=== PATIENT | female | born 1985 | race Caucasian/White ===

== ENCOUNTER → 2020-04-03 | Outpatient (CLI) | payer OTHER, SELFPAY ==
--- NOTE | 2020-04-03 09:59 | BI_ITS ---
MAMMOGRAPHY - BILATERAL SCREENING REASON FOR EXAM: Female, 34 years old. Routine annual screening examination. PERTINENT HISTORY: Non-contributory. TECHNIQUE: Digital bilateral breast tyrone (3D mammographic acquisition) in the CC and MLO projections. 2-D mediolateral oblique (MLO) and craniocaudad (CC) views of both breasts were obtained. CAD: Full Field Digital Mammography with Computer Added Detection was performed. COMPARISON: None. Baseline examination. FINDINGS: Breast Composition: The breasts are heterogeneously dense, which may obscure small masses. There are no dominant masses or suspicious calcifications. No other significant abnormalities are identified. BI/SCREEN MAMM (CAD) W/TYRONE BILAT IMPRESSION: Negative screening mammogram. Yearly followup mammogram recommended. (A) ASSESSMENT CATEGORY: BIRADS Category 1: Negative. A letter regarding these results will be sent to the patient by the facility within 30 days. Approximately 10% of breast cancers are not detected by mammography. A normal mammogram should not delay biopsy of a clinically suspicious abnormality. [id number] Electronically Signed: Bill Méndez, at 12:18 EDT , Service support ,
== END | disposition home or self-care (01) ==
LOC: OPBI 09:56
PROVIDERS: PCP Family Medicine; Referring Provider Obstetrics & Gynecology; Visit Provider Obstetrics & Gynecology
DX: Z12.31 Encounter for screening mammogram for malignant neoplasm of breast (principal)
CPT/HCPCS: 77063; 77067

== ENCOUNTER → 2025-02-06 | Outpatient (CLI) | payer BC, SELFPAY | END | disposition home or self-care (01) | LOC: OPBI 12:27 | PROVIDERS: PCP Family Medicine; Visit Provider Nurse Practitioner Family | DX: Z12.4 Encounter for screening for malignant neoplasm of cervix (principal) | CPT/HCPCS: 87624; 88175; G0145 ==

== ENCOUNTER → 2025-03-02 | Outpatient (CLI) | payer BC, SELFPAY ==
--- NOTE | 2025-03-02 14:06 | CT_ITS ---
PROCEDURE: ABDOMEN/PELVIS WITH CONTRAST 03/02/2025 REASON FOR EXAM: PELVIC MASS Right-sided abdominal pain. TECHNIQUE: Abdomen and pelvis CT with intravenous contrast. Coronal and Sagittal reconstruction series were provided. PATIENT PREPARATION: Per protocol ORAL CONTRAST TYPE: Oral contrast was given. CONTRAST: Isovue-300 VOLUME: 100 mL One or more dose reduction techniques were used (e.g., Automated exposure control, adjustment of the mA and/or kV according to patient size, use of iterative reconstruction technique. RADIATION DOSE SUMMARY: CTDlvol: 10 mGy DLP: 545.19 mGycm COMPARISON: None FINDINGS: Lung bases: Unremarkable Liver: Unremarkable Gallbladder: Unremarkable Spleen: Normal size. Pancreas: Normal size without evidence of mass surrounding inflammation or ductal dilation. Adrenals: Unremarkable Kidneys: Normal renal sizes. No hydronephrosis. Bladder: Unremarkable Reproductive Organs: Marked enlargement of the uterus in keeping with the large fibroid uterus. Bowel: Unremarkable Appendix: The appendix is not identified. There is no inflammatory process identified in the right lower quadrant to suggest appendicitis. Lymph nodes: Unremarkable. Vasculature: The abdominal aorta and IVC are normal. Peritoneum / Retroperitoneum: Unremarkable Bones: Limbus vertebrae along the superior anterior endplate of L5 vertebrae. CT/Abdomen/Pelvis WITH Contrast IMPRESSION: Markedly enlarged fibroid uterus. . Reading Location: [id number]
== END | disposition home or self-care (01) ==
LOC: CT 13:49
PROVIDERS: Referring Provider Nurse Practitioner Family; Visit Provider Nurse Practitioner Family
DX: R19.00 Intra-abdominal and pelvic swelling, mass and lump, unspecified site (principal)
CPT/HCPCS: 74177; Q9967; A4216

== ENCOUNTER → 2025-03-09 | Outpatient (CLI) | payer BC, SELFPAY ==
--- NOTE | 2025-03-09 12:56 | US_ITS ---
PROCEDURE: PELVIC W/ TRANSVAGINAL 03/09/2025 REASON FOR EXAM: UTERINE MASS TECHNIQUE: Transabdominal and transvaginal pelvic ultrasound FINDINGS: Transabdominal and transvaginal imaging. Enlarged uterus measures 14.5 x 10.9 x 10.1 cm and contains a heterogeneous mass at the fundal portion measuring 9.2 x 10.2 x 8.5 cm consistent with a large fibroid. The endometrium is not visualized. Cervix appears within limits. The right ovary is not visualized. The left ovary measures 3.5 x 2.2 x 2.4 cm and appears within limits. No evidence of adnexal mass. No free fluid seen. Bladder volume 506 cc. US/Pelvic w/ Transvaginal IMPRESSION: Enlarged uterus measures 14.5 x 10.9 x 10.1 cm and contains a heterogeneous mas s at the fundal portion measuring 9.2 x 10.2 x 8.5 cm consistent with a large fibroid. The endometrium is not visualized. The right ovary is not visualized. No free fluid seen. Reading Location: [id number]
== END | disposition home or self-care (01) ==
LOC: US 12:49
PROVIDERS: Referring Provider Nurse Practitioner Family; Visit Provider Nurse Practitioner Family
DX: R19.00 Intra-abdominal and pelvic swelling, mass and lump, unspecified site (principal)
CPT/HCPCS: 76830; 76856

== ENCOUNTER → 2025-03-20 | Outpatient (CLI) | payer BC, SELFPAY ==
--- NOTE | 2025-03-20 14:20 | EMB_PTH ---
PATIENT: YOKO BARBA LOC: [facility] U#:[id number] AGE/SX: 39/F ROOM: RE03/20/[address]: Dr. Maura Sequeira MD : 1985 BED: DIS: 03/20/2025 SPEC #: [id number] RECD: 03/20/25 15:59 STATUS: DONALD REJulián #: [id number] HUY: 03/20/25 14:[address]: Maura Sequeira DEPT: SURGICAL PATHOLOGY RECD BY: Thierry Joya ENTERED: 03/21/25 10:15 SP TYPE: ENDOM BX/C OTHR DR: NIALL Adame Tissues: A - Endometrium, NOS Procedures: Surgery Specimen Level IV HEADER OPERATION: Endometrial biopsy PRE-OP DIAGNOSIS: Abnormal uterine bleeding TISSUE SUBMITTED: A- Endometrial tissue MICROSCOPIC DIAGNOSIS A. Endometrium, biopsy: * Benign endocervical tissue. * No endometrium seen. MICROSCOPIC DESCRIPTION Slides are reviewed. GROSS DESCRIPTION A. Received in formalin in a container labeled with the patient's name, date of , and with the accompanying paperwork indicating, endometrial tissue are multiple singh fragments of soft tissue admixed with blood and mucus measuring 2.7 x 1.1 x 0.2 cm in aggregate. Submitted in toto in A1. [facility] 03-21-2025 CPT:77112
== END | disposition home or self-care (01) ==
LOC: LABSPEC 16:03
PROVIDERS: Referring Provider Obstetrics & Gynecology; Visit Provider Obstetrics & Gynecology
DX: N93.9 Abnormal uterine and vaginal bleeding, unspecified (principal)
CPT/HCPCS: 88305

== ENCOUNTER → 2025-05-08 | Outpatient (CLI) | payer BC, SELFPAY | END | disposition home or self-care (01) | LOC: BWCLAB 11:44 | PROVIDERS: Referring Provider Obstetrics & Gynecology; Visit Provider Obstetrics & Gynecology | DX: R35.0 Frequency of micturition (principal); R30.0 Dysuria | CPT/HCPCS: 87086; 87088 ==

== ENCOUNTER → 2025-05-11 | Outpatient (CLI) | payer BC, SELFPAY ==
--- NOTE | 2025-05-11 14:22 | US_ITS ---
PROCEDURE: PELVIC W/ TRANSVAGINAL 05/11/2025 REASON FOR EXAM: FIBROIDS PRE-OP TECHNIQUE: PELVIC W/ TRANSVAGINAL COMPARISON: 03/11/2025. FINDINGS: Anteverted uterus measures 16.3 x 12.2 x 11.6 cm. Large fundal fibroid measuring 9.3 x 9.6 x 8.3 cm. The endometrium is obscured. Right ovary measures 3.7 x 2.4 x 2.2 cm with preserved vascular flow. No visualized ovarian mass. Left ovarian 3.6 x 2.0 x 2.1 cm with preserved vascular flow. There is dominant follicle. No mass. No free fluid in the cul-de-sac. US/Pelvic w/ Transvaginal IMPRESSION: Large uterine fundal fibroid. Reading Location: [id number]
== END | disposition home or self-care (01) ==
LOC: US 14:20
PROVIDERS: Referring Provider Obstetrics & Gynecology; Visit Provider Obstetrics & Gynecology
DX: N93.9 Abnormal uterine and vaginal bleeding, unspecified (principal); D21.9 Benign neoplasm of connective and other soft tissue, unspecified
CPT/HCPCS: 76830; 76856

== ENCOUNTER 2025-06-01 08:52 | Outpatient (CLI) | payer BC, SELFPAY ==
[2025-06-01 09:03] VITALS: BP 122/76; PULSE 82; RESP 16; TEMP 36.2; O2SAT 100
[2025-06-01] MEDS: 0.9% NaCl Peripheral Flush Adult IV (09:18)
[2025-06-01] MEDS: 0.9% NaCl IVPB Med Flush (100mL) 15 ML IV (09:18)
[2025-06-01] MEDS: Iron Sucrose Complex 300 MG in 0.9% Normal Saline (250mL Bag) 250 ML 177 MG IV (09:32)
[2025-06-01 11:40] VITALS: BP 112/64; PULSE 85; RESP 14; TEMP 36.7; O2SAT 100
== END 2025-06-01 23:59 | disposition home or self-care (01) ==
LOC: MEDOUTP 08:53
PROVIDERS: Referring Provider Obstetrics & Gynecology; Visit Provider Obstetrics & Gynecology
DX: D64.9 Anemia, unspecified (principal)
CPT/HCPCS: 96365; 96366; J1756; A4216

== ENCOUNTER 2025-06-06 08:52 | Outpatient (CLI) | payer BC, SELFPAY ==
[2025-06-06 08:57] VITALS: BP 133/77; PULSE 74; RESP 16; TEMP 36.1; O2SAT 100
[2025-06-06] MEDS: Iron Sucrose Complex 300 MG in 0.9% Normal Saline (250mL Bag) 250 ML 177 MG IV (09:45)
[2025-06-06] MEDS: 0.9% NaCl Peripheral Flush Adult IV (09:50)
[2025-06-06] MEDS: 0.9% NaCl IVPB Med Flush (100mL) 15 ML IV (09:51)
[2025-06-06 11:39] VITALS: BP 130/71; PULSE 77; RESP 16
== END 2025-06-06 23:59 | disposition home or self-care (01) ==
LOC: MEDOUTP 08:52
PROVIDERS: Referring Provider Obstetrics & Gynecology; Visit Provider Obstetrics & Gynecology
DX: D64.9 Anemia, unspecified (principal)
CPT/HCPCS: 96365; 96366; J1756; A4216

== ENCOUNTER 2025-06-12 08:51 | Outpatient (CLI) | payer BC, SELFPAY ==
[2025-06-12 08:56] VITALS: BP 127/79; PULSE 83; RESP 16; TEMP 35.6; O2SAT 100
[2025-06-12] MEDS: Iron Sucrose Complex 300 MG in 0.9% Normal Saline (250mL Bag) 250 ML 177 MG IV (09:38)
[2025-06-12 11:42] VITALS: BP 121/69; PULSE 81
== END 2025-06-12 23:59 | disposition home or self-care (01) ==
LOC: MEDOUTP 08:52
PROVIDERS: Referring Provider Obstetrics & Gynecology; Visit Provider Obstetrics & Gynecology
DX: D64.9 Anemia, unspecified (principal)
CPT/HCPCS: 96365; 96366; J1756; A4216

== ENCOUNTER 2025-06-13 07:48 | Inpatient (IN) | payer BC, SELFPAY ==
[2025-05-08 12:24] LABS: Hematocrit 23.5 % (37-47); Hemoglobin 6.3 g/dL (12.0-15.0); Mean Corp Hgb Conc 26.8 g/dL (32-36); Mean Corpuscular Volume 66.2 fL (81-99); Mean Platelet Vol. 9.3 fl (6.2-12.0); Platelet Count 589 K/mm3 (150-450); RBC Distribution Width CV 17.1 % (11.6-14.6); RBC Distribution Width SD 40.3 fl (35.1-43.9); Red Blood Count 3.55 M/mm3 (4.2-5.4); White Blood Count 5.7 K/mm3 (4.4-11.0)
[2025-05-08 12:35] LABS: Prothrombin Time (Protime)PT. 13.1 SECONDS (11.7-14.9)
[2025-05-08 12:36] LABS: Partial Thromboplast Time 25.4 Seconds (24.1-36.2)
[2025-05-08 13:43] LABS: AST(SGOT) 20 U/L (<=31); Alanine Aminotransfer ALT/SGPT 20 U/L (<=34); Albumin, Serum 4.7 g/dL (3.5-5.0); Alkaline Phosphatase 68 U/L (35-104); Bilirubin, Direct 0.11 mg/dL (0.00-0.30); Globulin 2.8 g/dL (2.2-4.2); Magnesium 2.1 mg/dL (1.5-2.2)
--- NOTE | 2025-05-09 17:11 | PAT.ANESEVAL ---
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 When Was Last Pacemaker Check QUESTION #4 FULL TEXT: You/Your Family Experience fever (hyperthermia) with Anesthesia Last Oral Intake Last Oral intake: Last Oral Intake NPO since Meds taken in AM with sips of water? Meds patient instructed to take am of surgery PONV PONV - entry level drafter: PONV - entry level drafter Female Yes 05/04/25 12:33 HX of Motion Sickness Yes 05/04/25 12:33 HX of N/V After Surgery No 05/04/25 12:33 Non-Smoker Yes 05/04/25 12:33 Duration of Surgery greater Yes 05/04/25 12:33 than 60 minutes Number of Risk Factors 4 05/04/25 12:33 PONV Score Severe Risk 05/04/25 12:33 Height & Weight Height & Weight: Anesthesia: Height & Weight Height 5 ft 1 in 05/08/25 11:01 Respiratory Assessment Respiratory Assessment - entry level drafter: Respiratory Tract Infection Hx - entry level drafter Hx Respiratory Tract Infection No 05/04/25 12:33 STOP Sleep Apnea STOP Sleep Apnea - entry level drafter: STOP Sleep Apnea - entry level drafter Hx Hypertension No 05/04/25 12:33 Hx Sleep Apnea No 05/04/25 12:33 CPAP BIPAP Do you snore loudly (louder Yes 05/04/25 12:33 than talking or can be heard Do you often feel tired/ Yes 05/04/25 12:33 fatigued/ sleepy during daytime? Has anyone observed you stop No 05/04/25 12:33 breathing during sleep? STOP Results Positive 05/04/25 12:33 QUESTION #5 FULL TEXT : Do you snore loudly (louder than talking or can be heard through closed doors)? 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 Specify any problems Hx of Preganancy in last 3 No 05/04/25 12:33 Months Nurse Filling Out Transfusion DSCHRIBER 05/04/25 12:33 & Questions: Date: 05/04/25 05/04/25 12:33 Time: 12:34 05/04/25 12:33 Patient unable to answer at this time (ie. confused, unrespo /Reproduction History /Reproductive History - entry level drafter: /Reproductive Hx- entry level drafter Hx Now No 05/04/25 12:33 Gestational Age (in weeks): EDC: Hx Hx Para Hx Section SAB No 05/08/25 11:05 PFSH Medical History Wears glasses Wears contact lenses Low iron Easy bruising Restless legs Back pain Syncope Heartburn Non-smoker History of irregular heartbeat Lyme disease Vitamin D deficiency disease Hailey thyroiditis Home Medications ?Medication ?Instructions ?Recorded ?Last Taken ?Type thyroid (pork) 75 mg PO DAILY THYROID 02/06/25 Unknown History womens daily multivitamin 1 cap PO DAILY SUPPLEMENT 02/06/25 Unknown History magnesium 250 mg tablet 250 mg PO DAILY SUPPLEMENT 05/04/25 Unknown History megestrol 20 mg tablet 20 mg PO BID #45 tabs 05/08/25 Unknown Rx ferrous sulfate 325 mg (65 mg 325 mg PO BID #60 tabs 05/09/25 Unknown Rx iron) tablet (Feosol) sulfamethoxazole 800 1 tab PO BID 3 days #6 tabs 05/09/25 Unknown Rx mg-trimethoprim 160 mg tablet (Bactrim DS) Allergy/AdvReac Type Severity Reaction Status Date / Time acetaminophen (From Vicodin) AdvReac Intermediate Vomiting Verified 05/04/25 12:30 hydrocodone (From Vicodin) AdvReac Intermediate Vomiting Verified 05/04/25 12:30 Family History Other Hypertension Thyroid disorder Surgical History Hx of wisdom tooth extraction History of tonsillectomy and adenoidectomy S/P Social History adopted: No household members: family housing: house number of children: 2 current occupational status: employed 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 current occupational exposures/hazards: No pets and animals: Yes pets and animals: dog(s) history of recent travel: No sexually active: Yes Smoking Status: Never smoker second hand exposure: No alcohol intake: never substance use type: does not use well-balanced diet: about half the time caffeine: No eating out: 1-3 times/week during the past year weight has: decreased > 10 lbs what type of physical activity do you participate in: walking frequency: 5-6 times per week duration: 15-30 minutes/day brant/mandaen: Hoahaoism seatbelt use: always do you feel safe at home: Yes additional social history: - Azam Audit: Pertinent Findings Pertinent Findings Additional pertinent findings: 05/08/2025 CBC abnormal results: Hgb 6.3g/dl, Hct 23.5% YOKO BARBA is a 39 year old who presents for preop visit. She is a follow up from being diagnosed of an enlarged uterus and fibroid. she has a history of heavy menses lasting 2 week and heavy for years. she has a history of lyme disease. she struggles with this and has relapses with joint pain. she has a 16 weeks size uterus with a 10 cm fibroid, and has a history of severe scar tissue from her last cesaren section. she had a cbc and thyroid labs within the last few months [facility] that was normal. EMB done and minimal tissue obtained. Current Recommendation Anesthesia Recommendation Anesthesia recommendation: F/U recommended Follow up Details CBC Recommendation: Yes CBC Rec Details: repeat CBC prior to scheduled surgery and consider pre-op PRBC transfusion with additional preparation for intra-operative transfusion of PRBC based on clinical picture and surgical bleeding.
--- NOTE | 2025-06-12 15:42 | HP.PCM_ITS ---
History and Physical Date of Admission: 06/12/25 Vital Signs 03/20/2513:36 05/08/2511:01 Height 5 ft 1 in 5 ft 1 in Weight: 154 lb 8 oz BMI 29.2 BP 131/80 H Intake Visit Reasons: [facility] Cage Operator Required: No Is patient in pain?: Yes (pelvic pain and pressure) Allergies acetaminophen (From Vicodin) Adverse Reaction (Intermediate, Verified 05/04/25 12:30) Vomitinghydrocodone (From Vicodin) Adverse Reaction (Intermediate, Verified 05/04/25 12:30) Vomiting Medications ?Medication ?Instructions ?Recorded ?Confirmed ?Type thyroid (pork) 75 mg PO DAILY THYROID 02/06/25 05/08/25 History womens daily multivitamin 1 cap PO DAILY SUPPLEMENT 02/06/2505/08 History magnesium 250 mg tablet 250 mg PO DAILY SUPPLEMENT 05/04/2504/19 History Is last menstrual period known: Yes Last Menstrual Period: 04/29/25 Post menopausal: No Patient : No : No [facility] Medical History Wears glasses Wears contact lenses Low iron Easy bruising Restless legs Back pain Syncope Heartburn Non-smoker History of irregular heartbeat Lyme disease Vitamin D deficiency disease Hailey thyroiditis Surgical History Hx of wisdom tooth extraction History of tonsillectomy and adenoidectomy S/P Family History Other Hypertension Thyroid disorder Social History adopted: No household members: family housing: house number of children: 2 current occupational status: employed 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 current occupational exposures/hazards: No pets and animals: Yes pets and animals: dog(s) history of recent travel: No sexually active: Yes Smoking Status: Never smoker second hand exposure: No alcohol intake: never substance use type: does not use well-balanced diet: about half the time caffeine: No eating out: 1-3 times/week during the past year weight has: decreased > 10 lbs what type of physical activity do you participate in: walking frequency: 5-6 times per week duration: 15-30 minutes/day brant/mu-ism: Caodaism seatbelt use: always do you feel safe at home: Yes additional social history: - Azam [facility] Details: YOKO BARBA is a 39 year old who presents for preop visit. She is a follow up from being diagnosed of an enlarged uterus and fibroid. she has a history of heavy menses lasting 2 week and heavy for years. she has a history of lyme disease. she struggles with this and has relapses with joint pain. she has a 16 weeks size uterus with a 10 cm fibroid, and has a history of severe scar tissue from her last cesaren section. she had a cbc and thyroid labs within the last few months at [facility] that was normal. EMB done and minimal tissue obtained Female Reproductive History Last Menstrual Period: 04/29/25 Questions: metorrhagia: No, sexually active: Yes, dyspareunia: No and PCB: No Menopausal Symptoms: No hot flashes, No night sweats, No weight change, No mood changes, No difficulty concentrating, No sleep problems and No change in libido History 3 Elective abortions Hx Para 2 Spontaneous abortions Hx # Term Pregnancies Ectopic pregnancies Hx # Pregnancies Multiple births # of living children 2 Past Pregnancies Del. Date Name GA/Weeks Outcome Route Bth Weight Gen Labor Lgth Anesthesia Del Locat Provider FOB Unknown 2007 [place] Male Unknown 2008 Britta Female ROS Const Constitutional: Denies fatigue, night sweats, weight gain or weight loss ENT ENT: Reports system reviewed and no additional complaints, except as documented Cardio Card: Denies chest pain Resp Resp: Denies cough or dyspnea GI GI: Reports as per HPI; Denies constipation, nausea or vomiting : Reports as per HPI; Denies hot flashes, nipple discharge, vaginal discharge, vaginal dryness, vaginal odor or vaginal pruritus Musc Musc: Denies arthralgias, back pain or muscle weakness Skin Skin/Breast: Denies alopecia, change in hair, dry skin, breast mass, breast pain, breast skin changes or nipple discharge Neuro Neuro: Reports system reviewed and no additional complaints, except as documented Psych Psych: Reports system reviewed and no additional complaints, except as documented; Denies change in libido or difficulty concentrating Endo Endo: Denies cold intolerance, excessive sweating, heat intolerance or polydipsia Werner/Lymph Hematologic/Lymphatic: Denies easy bleeding, Denies easy bruising and Denies lymphadenopathy Exam Const General: cooperative, healthy appearing, comfortable, no acute distress and well developed Orientation: alert [facility] Head: normal to inspection and normocephalic Ears: hearing grossly normal bilaterally and external ears normal Nose: external nose normal and nares normal Face and sinus: normal facial exam Neck Neck: normal visual inspection and no lymphadenopathy Thyroid: thyroid normal Chest Chest palpation & inspection: normal inspection of the chest Resp Effort & Inspection: normal respiratory effort GI Inspection: normal to inspection and non-distended Palpation: soft, no hepatosplenomegaly and mass (16-18 week size fixed suprabpubic and 10 cm wide) General: bladder normal to palpation External Female Exam: normal external appearance and normal appearance of the urethra Urethra: normal appearance of the urethra, normal palpation and no discharge Speculum Exam - Vagina: normal appearance of the vagina and normal vaginal discharge Speculum Exam - Cervix: normal appearance of the cervix Bimanual Exam- Vagina & Uterus: bladder normal to palpation, displaced (anteriorly severely, wide particularly cervically), enlarged (16-18 week size), fixed (minimal movement, anteriorly displaced) and nodular Bimanual Exam- Adnexa, other: normal adnexae, adnexae mobile, no masses and normal Pelvic Support: normal Musc Other: gross motor intact no deficits, full bilateral strength Skin General: no rashes or lesions noted Neuro General: patient alert, patient awake, moves all extremities and no focal motor deficits Motor: muscle tone normal throughout Extrem General: normal to inspection and no pedal edema Psych Appearance: grossly normal Mental Status: mental status grossly normal Affect: normal affect Speech and Movement: speech and movement normal Coding Level of Care Code No Charge Diagnoses Abnormal uterine bleeding N93.9 Fibroid D21.9 Pelvic mass R19.00 Frequency of urination R35.0 Assessment and Plan Assessment and Plan (1) Abnormal uterine bleeding: Status: Acute Comment: secondary to fibroid. nl cbc tsh EMB attempted (2) Fibroid: Status: Acute Comment: will discuss with J[facility]- TRH vs RAMÓN, extensive history of scar tissue (3) Pelvic mass: Status: Acute Comment: greater than 6 months (4) Frequency of urination: Status: Acute Plan After discussing the patient's diagnosis and treatment plan options, patient wishes to proceed with surgical management. I have discussed with the patient the risks, benefits, and alternatives of the procedure which include but are not limited to risks of anesthesia, bleeding, infection, possible damage to bowel, bladder, or surrounding vasculature which could lead to additional surgery to evaluate any complications. Patient agrees to procedure and wishes to proceed. ACOG/uptodate references given for additional information regarding procedure.
[2025-06-13] VITALS (19 sets, daily range): BP systolic 102–134; BP diastolic 58–91; PULSE 67–87; RESP 16–18; TEMP 36.5–37.1; O2SAT 97–100; BMI 28.7
--- OUTSIDE RECORDS SUMMARY | 2025-06-13 05:30 | XMS RPT_ITS | CCD ---
Author Organization [employer] [facility] Care Team Providers Care Flag Signalman Name Role Phone Jair Soto PA-C Unavailable Jair Soto PA-C Unavailable Joshua MARIN, Dr. Walls Unavailable [phone] Endocrinology Provider Unavailable Unavailab robert Flood LPN, Nicolasa Unavailable Unavailcatalina Perez MD, Jessica Mayer Unavailable Lashaun BUENROSTRON, Greer Unavailable Milton BUENROSTRON, Madisyn Mayer Unavailable Unavailable Lauren WRAY, Elsa Perez Unavailable Jose GUILLORY, Quynh Ppo Unavailable Unavail able King DUONG-C, Wilfrido Cain Unavailable Clayton GUILLORY, Elsa Salazar Unavailable Unavaila coleen Duran LPN, Bryanna Unavailable Unavailable Varun GUILLORY, Pia Alexander Unavailable Unavailable Laron BUENROSTRON, Mckenna Unavailable Unavailable Poncho WRAY, Gabi Huston Unavailable Elisha La Unavailable Viv BUENROSTRON, Jessica Dallas Unavailable Unavailab robert Booth LPN, Ying Unavailable Unavailcatalina Cortez LPN, Siomara Jones Unavailable Unavaila ble Unavailable Unavailable 911 Emergency Dispatcher/Gynecology Prov. Unavailable Un available Infectious Disease Provider Unavailable Unav sania Perez MD, Dr. Lopez Primary Care Provider Dr. Jessica Perez MD Referring Provider [phone] [facility] Attending Provider [facility] Referring Provider Jair Díaz Primary Care Provider Soto PA, Jair Referring Provider Hua MARIN, Dr. Lorenzo Attending Provider [phone] Dr. Maura Vargas MD Referring Provider [phone] ISAAC, GABI J Attending Unavailable ISAAC, GABI J Primary Care Unavailable ISAAC, GABI J Admitting Unavailable SOTO, JAIR PAC Consulting Unavailable PROVIDER, UNKNOWN Consulting Unavailable PAUL MEEKS MD Referring Unavaila ble ISAAC, GABI J Attending Unavailable ISAAC, GABI J Primary Care Unavailable ISAAC, GABI J Admitting Unavailable SOTO, JAIR PAC Consulting Unavailable PROVIDER, UNKNOWN Consulting Unavailable ISAAC, GABI J Admitting Unavailable ISAAC, GABI J Attending Unavailable ISAAC, GABI J Primary Care Unavailable SOTO, JAIR PAC Consulting Unavailable PROVIDER, UNKNOWN Consulting Unavailable MAURA VARGAS MD Attending Unavailab le MAURA VARGAS MD Primary Care Unavailab le SOTO, JAIR PAC Consulting Unavailable MAURA VARGAS MD Admitting Unavailab le PROVIDER, UNKNOWN Consulting Unavailable SOTO, JAIR PAC Consulting Unavailable PAUL MEEKS MD Admitting Unavaila ble RAGHUNATHAN, PAUL MARIN Attending Unavaila ble RAGHUNATAMELIA, PAUL MARIN Primary Care Unavaila ble PROVIDER, UNKNOWN Consulting Unavailable MAURA VARGAS MD Primary Care Unavailab le MAURA VARGAS MD Admitting Unavailab le RAGHURICHIE, PAUL MARIN Referring Unavaila ble SOTO, JAIR PAC Consulting Unavailable MAURA VARGAS MD Attending Unavailab le PROVIDER, UNKNOWN Consulting Unavailable ISAAC, GABI J Attending Unavailable ISAAC, GABI J Primary Care Unavailable ISAAC, GABI J Admitting Unavailable SOTO, JAIR PAC Consulting Unavailable PROVIDER, UNKNOWN Consulting Unavailable Austen WATTERS-C, Joyce Attending Provider Dr. Maura Vargas MD Admit Provider [phone] Dr. Maura Vargas MD Other Provider [phone] Joyce Boyce Referring Unavailable Joyce Boyce Attending Unavailable Soto, Jair Primary Care Unavailable Joyce Boyce Referring Unavailable Joyce Boyce Attending Unavailable Soto, Jair Primary Care Unavailable Maura Vargas Referring Unavailable Soto, Jair Primary Care Unavailable Marcanthony, Maura Attending Unavailable Marcanthony, Maura Referring Unavailable Marcanthony, Maura Attending Unavailable Soto, Jair Primary Care Unavailable Marcanthony, Maura Attending Unavailable Soto, Jair Referring Unavailable Soto, Jair Primary Care Unavailable Soto, Jair Referring Unavailable Marcanthony, Maura Attending Unavailable Soto, Jair Primary Care Unavailable Marcanthony, Maura Attending Unavailable Marcanthony, Maura Consulting Unavailable Marcanthony, Maura Admitting Unavailable Soto, Jair Primary Care Unavailable Perez, Jessica Referring Unavailable Perez, Jessica Primary Care Unavailable Barkdoreen, Joyce Attending Unavailable Marcanthony, Maura Referring Unavailable Soto, Jair Primary Care Unavailable Marcanthony, Maura Attending Unavailable Marcanthony, Maura Referring Unavailable Soto, Jair Primary Care Unavailable Marcanthony, Maura Attending Unavailable Marcanthony, Maura Referring Unavailable Soto, Jair Primary Care Unavailable Marcanthony, Maura Attending Unavailable Marcanthony, Maura Referring Unavailable Soto, Jair Primary Care Unavailable Marcanthony, Maura Attending Unavailable Perez, Jessica Primary Care Unavailable Barkman, Joyce Attending Unavailable Marcanthony, Maura Admitting Unavailable Soto, Jair Primary Care Unavailable Marcanthony, Maura Attending Unavailable Allergies Allergy Classification Reported Allergen(s) Allergy Type Date of Onset Reaction(s) Facility (11 sources) Codeine Drug Allergy Nausea [facility], [facility] (7 sources) Acetaminophen Drug Allergy 02-06-2025 [facility] (10 sources) HYDROcodone Drug Allergy 02-06-2025 [facility]om[facility] (1 source) Acetaminophen Drug Allergy 05-04-2025 [facility] (1 source) HYDROcodone Drug Allergy 06-12-2025 [facility] Medications Current Medications Medication Drug Class(es) Dates Sig (Normalized) Sig (Original) Magnesium (6 sources) Start: 05-04-2025 take 1 tablet by mouth once daily Magnesium 250 mg tablet Active 250 mg PO DAILY May 04, 2025 12:00am SUPPLEMENT megestrol acetate 20 mg oral tablet (5 sources) Progestin Start: 05-08-2025 take 1 tablet by mouth once daily Megestrol 20 mg tablet Active 20 mg PO TWICE A DAY 45 2 May 08, 2025 12:00am one po BID x until bleeding stops for at least 2-3 days then once daily for remainder of the pills. thyroid (pork) ([place] Thyroid) (9 sources) Start: 05-11-2025 take 90 mg by mouth once daily thyroid (pork) ([place] Thyroid) Active 90 mg PO DAILY May 11, 2025 4:28pm THYROID Start: 02-06-2025 thyroid (pork) ([place] Thyroid) Active PO February 06, 2025 12:00am thyroid (long-term) 15 mg oral tablet (20 sources) take 1 tablet by jeremy th once daily [place] Thyroid 60 MG Oral Tablet ; 1 daily (60 MG) take 1 tablet by mouth once truman y [place] Thyroid 15 MG Oral Tablet ; 1 daily (15 MG) womens daily multivitamin (10 sources) Start: 02-06-2025 womens daily m ultivitamin Active 1 NMA PO DAILY February 06, 2025 12:00am SUPPLEMENT Start: 02-06-2025 womens daily m ultivitamin Active PO February 06, 2025 12:00am Completed/Discontinued Medications Medication Drug Class(es) Dates Sig (Normalized) Sig (Original) [id number] 200 actuat albuterol 0.09 mg/actuat metered dose inhaler (11 sources) beta2-Adrenergic Agonist Start: 07-06-2013 End: 06-25-2016 take 2 puff(s) by inhalation every four to six hours as needed Ventolin HFA 108 (90 Base) MCG/ACT Inhalation Aerosol Solution ; 2 (two) puff(s) puff(s) every 4-6hrs prn for 0 days Quantity: 1 {Inhaler(s)} Refills: 0 Ordered: 25-Jun-2016 PASTORA Bond Start: 06-Jul-2013 End: 25-Jun-2016 Status: Inactive amoxicillin 500 mg oral tablet (11 sources) Penicillin-class Antibacterial Start: 06-25-2016 End: 07-05-2016 take 1 tablet by mouth three times daily Amoxicillin 500 MG Oral Tablet ; 1 (one) Tablet three times daily for 10 days Quantity: 20 {Tablet} Refills: 0 Ordered: 25-Jun-2016 KAMALA Aguilar Start: 25-Jun-2016 End: 05-Jul-2016 Status: Inactive amoxicillin 875 mg / clavulanate 125 mg oral tablet (20 sources) Penicillin-class Antibacterial Start: 10-17-2021 End: 10-27-2021 take 1 tablet by mouth twice daily Amoxicillin-Pot Clavulanate 875-125 MG Oral Tablet ; 1 (one) Tablet two times daily for 10 days Quantity: 20 {Tablet} Refills: 0 Ordered: 17-Oct-2021 KAMALA Soto Start: 17-Oct-2021 End: 27-Oct-2021 Status: Inactive Start: 08-13-2021 End: 08-23-2021 take 1 tablet by mouth twice daily Amoxicillin-Pot Clavulanate 875-125 MG Oral Tablet ; 1 (one) Tablet two times daily for 10 days Quantity: 20 {Tablet} Refills: 0 Ordered: 13-Aug-2021 KAMALA Soto Start: 13-Aug-2021 End: 23-Aug-2021 Status: Inactive Start: 09-26-2016 End: 10-06-2016 take 1 tablet by mouth twice daily at mealtime Augmentin 875-125 MG Oral Tablet ; 1 Tab two times daily for 10 days Quantity: 20 {Tablet} Refills: 0 Ordered: 26-Sep-2016 VIPUL Santana Start: 26-Sep-2016 End: 06-Oct-2016 Status: Inactive Comments: Take with food Comment on above: Take with food azithromycin 250 mg oral tablet (11 sources) Macrolide Antimicrobial Start: 07-06-20 13 End: 12-07-19 14 ZITHROMAX Z-ROBERT, 250MG (Oral Tablet) ; 2 (two) Tabs day one, then one daily for 4 days for 0 days Quantity: 1 {Z-pack} Refills: 0 Ordered: 07-Dec-2013 PASTORA Bond Start: 06-Jul-2013 End: 07-Dec-2013 Status: Inactive benzoyl peroxide 0.05 mg/mg / clindamycin 0.01 mg/mg topical gel (11 sources) Lincosamide Antibacterial BENZACLIN, 1-5% (External Gel) ; AA two times daily (1-5 %) Status: Inactive ciprofloxacin 250 mg oral tablet (11 sources) Quinolone Antimicrobial Start: 06-07-20 18 End: 06-14-20 18 take 1 tablet by mouth twice daily Cipro 250 MG Oral Tablet ; 1 Tablet two times daily for 7 days Quantity: 14 {Tablet} Refills: 0 Ordered: 07-Jun-2018 PASTORA Arnold Start: 07-Jun-2018 End: 14-Jun-2018 Status: Inactive doxycycline monohydrate 100 mg oral tablet (11 sources) Tetracycline-class Drug Start: 06-22-20 End: 07-10-20 doxycycline monohydrate 100 mg tablet ; 1 (one) tablet BID for 18 days Quantity: 36 {Tablet} Refills: 0 Ordered: 22-Jun-2024 KAMALA Isaac Start: 22-Jun-2024 End: 10-Jul-2024 Status: Inactive Start: 06-17-2024 doxycycline mo nohydrate 100 mg tablet ; 1 (one) tablet BID for 10 days Quantity: 20 {Tablet} Refills: 0 Ordered: 17-Jun-2024 KAMALA Isaac Start: 17-Jun-2024 ferrous sulfate 325 mg oral tablet (10 sources) Start: 05-08-2025 End: 06-01-2025 take 1 tablet by mouth twice daily Ferrous Sulfate (Feosol) 325 mg (65 mg iron) tablet Discontinued 325 mg PO TWICE A DAY 60 May 09, 2025 9:16am June 01, 2025 9:03am fluticasone propionate 0.05 mg/actuat metered dose nasal spray (11 sources) Corticosteroid FLONASE, 50MCG/A CT (Nasal Suspension) ; 2 sprays daily (50 MCG/ACT) Status: Inactive herbal tic immune support (10 sources) Start: 02-06-2025 End: 05-04-2025 herbal tic immune support Discontinued PO February 06, 2025 12:00am May 04, 2025 12:31pm Start: 02-06-2025 herbal tic imm une support Active PO February 06, 2025 12:00am iron-Vit O-Scajdpshc-yibln pepper (8 sources) Start: 03-20-2025 End: 05-04-2025 iron-Vit Y-Nspbwvazx-vkayn pepper Discontinued PO March 20, 2025 12:00am May 04, 2025 12:31pm Start: 03-20-2025 iron-Vit C-Pro biotic-black pepper Active PO March 20, 2025 12:00am levoFLOXacin 500 mg oral tablet (11 sources) Quinolone Antimicrobial Start: 07-05-2014 End: 07-15-2014 take 1 tablet by mouth once daily LEVAQUIN, 500MG (Oral Tablet) ; 1 Tab daily for 10 days Quantity: 10 {Tablet} Refills: 0 Ordered: 05-Jul-2014 KAMALA Aguilar Start: 05-Jul-2014 End: 15-Jul-2014 Status: Inactive levothyroxine sodium 0.075 mg oral tablet (20 sources) l-Thyroxine Start: 02-23-2017 End: 08-13-2021 take 1 tablet by mouth once daily Levothyroxine Sodium 75 MCG Oral Tablet ; 1 (one) Tablet Tablet daily for 0 days Quantity: 30 {Tablet} Refills: 11 Ordered: 13-Aug-2021 CLARE Larry Start: 23-Feb-2017 End: 13-Aug-2021 Status: Inactive Start: 02-26-2016 End: 06-26-2016 take 1 tablet by mouth once daily Levothyroxine Sodium 50 MCG Oral Tablet ; 1 (one) Tablet daily for 0 days Quantity: 90 {Tablet} Refills: 3 Ordered: 26-Jun-2016 KAMALA Aguilar Start: 26-Feb-2016 End: 26-Jun-2016 Status: Inactive Magnesium Chloride (10 sources) Start: 02-06-2025 End: 05-04-2025 magnesium chloride Discontin ued PO February 06, 2025 12:00am May 04, 2025 12:31pm Start: 02-06-2025 magnesium chlo ride Active PO February 06, 2025 12:00am omeprazole 40 mg delayed release oral capsule (11 sources) Proton Pump Inhibitor Start: 01-01-2015 End: 09-26-2016 Omeprazole 40 MG Oral Capsule Delayed Release ; 1 (one) Capsule DR 30 minutes before 1st meal of the day for 0 days Quantity: 30 {Capsule} Refills: 11 Ordered: 26-Sep-2016 PASTORA Arnold Start: 01-Jan-2015 End: 26-Sep-2016 Status: Inactive predniSONE 20 mg oral tablet (11 sources) Start: 06-17-2024 End: 07-08-2024 predniSONE 20 mg tablet ; 1 (one) Tablet as directed for 0 days Quantity: 20 {Tablet} Refills: 0 Ordered: 08-Jul-2024 KAMALA Isaac Start: 17-Jun-2024 End: 08-Jul-2024 Status: Inactive Comments: Take 3tabs qd for 3 days thenTake 2tabs qd for 3 days thenTake 1tab qd for 3 days thenTake 1/2tab qd for 4 days. Comment on above: Take 3tabs qd for 3 days thenTake 2tabs qd for 3 days thenTake 1tab qd for 3 days thenTake 1/2tab qd for 4 days. sulfamethoxazole 800 mg / trimethoprim 160 mg oral tablet (16 sources) Dihydrofolate Reductase Inhibitor Antibacterial, Sulfonamide Antimicrobial Start: 05-09-2025 End: 05-12-2025 Sulfamethoxazole-Tri methoprim (Bactrim Ds) 800-160 mg tablet Discontinued 1 {tbl} PO TWICE A DAY 6 3 0 May 09, 2025 12:00am May 11, 2025 12:00am May 12, 2025 12:08am Start: 05-31-2018 End: 06-07-2018 take 1 tablet by mouth twice daily Bactrim DS 800-160 MG Oral Tablet ; 1 (one) Tablet BID for 0 days Quantity: 6 {Tablet} Refills: 0 Ordered: 07-Jun-2018 CLARE Wilks Start: 31-May-2018 End: 07-Jun-2018 Status: Inactive thyroid (pork) (6 sources) Start: 02-06-2025 End: 05-11-2025 take 75 mg by mouth once daily thyroid (pork) Discontinued 75 mg PO DAILY February 06, 2025 12:00am May 11, 2025 4:29pm THYROID Start: 02-06-2025 take 75 mg by mouth once daily thyroid (pork) Active 75 mg PO DAILY February 06, 2025 12:00am THYROID Problems Active Problems Problem Classification Problem Date Documented Da te Episodic/Chronic Abdominal pain (20 sources) Abdominal pain, right upper quadrant 10-17-2010 Episodic Acute bronchitis (20 sources) Acute bronchitis 07-05-2014 Episodic Cardiac dysrhythmias (20 sources) Palpitations; Translations: [Palpitations] 06-17-2024 Episodic Deficiency and other anemia (5 sources) Anemia; Translations: [Anemia, unspecified] 05-09-2025 Episodic Deficiency and other anemia (1 source) Anemia, unspecified; Translations: [Anemia, unspecified] Onset: 06-12-2025 Episodic Esophageal disorders (20 sources) Esophageal reflux 05-26-2014 Chronic Genitourinary symptoms and ill-defined conditions (20 sources) Urinary frequency; Translations: [Increased frequency of urination] Onset: 05-08-2025 04-28-2013 Episodic Menstrual disorders (15 sources) Disorder of menstruation; Translations: [Irregular menstruation, unspecified] Onset: 03-20-2025 07-13-2024 Chronic Nonspecific chest pain (20 sources) Chest pain; Translations: [Chest pain, unspecified] 06-17-2024 Episodic Other and unspecified benign neoplasm (20 sources) Leiomyoma; Translations: [Benign neoplasm of connective and other soft tissue, unspecified] 03-20-2025 Episodic Comment on above: will discuss with IVETH PEREA vs RAMÓN, extensive history of scar tissue Other and unspecified benign neoplasm (1 source) Benign neoplasm of connective and other soft tissue, unspecified; Translations: [Benign neoplasm of connective and other soft tissue, unspecified] Onset: 05-08-2025 Episodic Other female genital disorders (20 sources) Abnormal uterine bleeding; Translations: [Abnormal uterine and vaginal bleeding, unspecified] 03-20-2025 Chronic Comment on above: secondary to fibroid . nl cbc tsh EMB attempted Other female genital disorders (1 source) Abnormal uterine and vaginal bleeding, unspecified; Translations: [Abnormal uterine and vaginal bleeding, unspecified] Onset: 05-16-2025 Chronic Other female genital disorders (18 sources) Vaginal dryness; Translations: [Other specified noninflammatory disorders of vagina] 02-06-2025 Episodic Other gastrointestinal disorders (20 sources) Pelvic mass; Translations: [Intra-abdominal and pelvic swelling, mass and lump, unspecified site] 02-06-2025 Episodic Comment on above: greater than 6 month s Other gastrointestinal disorders (1 source) Intra-abdominal and pelvic swelling, mass and lump, unspecified site; Translations: [Intra-abdominal and pelvic swelling, mass and lump, unspecified site] Onset: 05-08-2025 Episodic Other infections; including parasitic (12 sources) Lyme disease; Translations: [Lyme disease, unspecified] 07-15-2024 Episodic Other nervous system disorders (12 sources) Numbness and tingling sensation of skin; Translations: [Anesthesia of skin] 07-15-2024 Episodic Other non-traumatic joint disorders (20 sources) Multiple joint pain; Translations: [Pain in unspecified joint] 06-17-2024 Episodic Other upper respiratory infections (11 sources) Sinusitis; Translations: [Chronic sinusitis, unspecified] 09-26-2016 Chronic Other upper respiratory infections (20 sources) Acute pharyngitis; Translations: [Acute pharyngitis, unspecified] 01-17-2014 Episodic Otitis media and related conditions (11 sources) Acute suppurative otitis media; Translations: [Acute suppurative otitis media without spontaneous rupture of ear drum, unspecified ear] 12-13-2014 Episodic Thyroid disorders (20 sources) Hypothyroidism; Translations: [Hypothyroidism, unspecified] 06-17-2024 Chronic Comment on above: ON MED Thyroid disorders (20 sources) Disorder of thyroid gland; Translations: [Disorder of thyroid, unspecified] 06-17-2024 Episodic Urinary tract infections (20 sources) Urinary tract infectious disease; Translations: [Urinary tract infection, site not specified] 06-07-2018 Episodic Past or Other Problems Problem Classification Problem Date Documented Date Episodic/Chronic Other screening for suspected conditions (not mental disorders or infectious disease) (20 sources) Full blood count abnormal; Translations: [Other specified abnormal findings of blood chemistry] Onset: 02-06-2025 06-22-2024 Episodic Unclassified (11 sources) Long lasting COVID? - Patient states she has been sick for around 3 weeks. Her co-worker was positive for COVID 05/30/24. Patient states she then had similar symptoms and believes she also had/has COVID. Has not tested, prefers not to. States she is still experiencing sore throat, headaches, body aches, excess fatigue, just overall bad and now has oval rings/rashes all over her body. States her face and jaw hurt/lymph nodes. Does have some numbness and tingly in her face/jaw. 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 Lyme?She had been around coworker on /Thu and then they both got sick over the weekend. Her coworker tested positive for covid on Thursday.Extreme muscle/bone pain, fatigue, fever and headaches. This past weekend she started with sore throat - burning, feels swollen in neck area. Still has the bone pain - was back, neck, head and now more in the jaw with some numbness/tingling.Nev er checked temp but felt she had a fever. Rash intermittently - circles/ovals. No known tick bite. First spot was on the left upper thigh - red, warm, and then turned purple in color. No family history of autoimmune disorders - sees endo and she was tested for lupus in the past and was negative. 06-17-2024 Unclassified (11 sources) Chest pain - The onset of the pain has been gradual and has been occurring in an episodic pattern for 6 months (approx. She has had palpitations for many years. This chest pain occurs both with and without palpitations.). Each episode lasts minutes. The pain is described as a mild to moderate tightness. The pain is described as being located in the left chest (Center of chest and left side of sternum. Will sometimes radiate into the left axilla.) and radiates to the left shoulder (radiates to back of shoulder blade). There are no precipitating factors. The symptoms are aggravated by stress. The symptoms are relieved by nothing (when the chest pain occurs she will try to deep breathe or will walk outside of her workplace, she is not sure if this helps or not). The symptoms have been associated with dyspnea (will become lightheaded feeling sometimes), headache (been getting more headaches the past 4-6 weeks.) and palpitations, but have not been associated with abdominal pain, blurred vision, cough, fever, nausea, neck pain, syncope or vomiting. There have been no previous evaluations. Note for Chest pain: Her thyroid dose was increased beginning of July. She sees endocrine and had thyroid labs done two days ago.She has a sleep number bed that has been alerted her that her resting heart rate is higher than a person her age. She reports a resting heart rate in the 60s and 70s.Patient reports that she does get stressed often. She particularly gets stressed when she feels there are tasks that she needs to complete. For example, she reports that if she knows the dishes need to be done, she cannot focus on anything else and feels compelled to complete that task. 09-19-2022 Unclassified (11 sources) Cold Symptoms - Symptoms include nasal congestion, runny nose, ear pain, ear fullness, sore throat, dry cough, productive cough, general malaise, headache and facial pain (sinus pressure), but do not include sneezing, scratchy throat, hoarseness, wheezing, fever or chills. The onset was gradual 5 day(s) ago. The symptoms occur constantly. The patient describes this as moderate in severity and worsening. Current treatment includes non-prescription cold medication and nasal corticosteroids. Risk factors do not include child in daycare or smoking. The patient has been exposed to an individual with similar symptoms, but has not been exposed to an individual with strep or secondhand smoke. Patient denies history of seasonal allergies, recurrent sinusitis, recurrent strep pharyngitis, asthma, tonsillectomy or recurrent ear infections. Note for Upper respiratory infection: Patient states she has brain fog.Did not have covid vaccine and has not had covid virus. 10-17-2021 Unclassified (11 sources) Cold Symptoms - Symptoms include nasal congestion, runny nose, ear pain, ear fullness, scratchy throat, dry cough (post nasal drip), general malaise (fatigue, no body aches), headache and facial pain (lots of pressure in her head.), but do not include sneezing, sore throat, hoarseness, productive cough, wheezing, fever or chills. The onset was gradual 12 day(s) ago. The symptoms occur constantly. The patient describes this as moderate in severity and worsening. Current treatment includes non-prescription cold medication (advil cold and sinus) and NSAIDs. Risk factors do not include child in daycare or smoking. The patient has not been exposed to an individual with a cough, an individual with an upper respiratory infection, an individual with similar symptoms, an individual with strep or secondhand smoke. Medical history includes recurrent sinusitis (but has been a while) and tonsillectomy, but patient denies history of seasonal allergies, recurrent strep pharyngitis, asthma or recurrent ear infections. Note for Upper respiratory infection: pt was cutting firewood on 08/01/2021 and then symptoms started. she said her lymph nodes in her neck are swollen. 08-13-2021 Unclassified (11 sources) UTI - Symptoms include dysuria, urinary frequency, urinary urgency and abdominal pain, but do not include hematuria or back pain. The pain is located in the suprapubic area (pressure). There is no radiation. Onset was sudden 1 day(s) ago. The symptoms occur constantly. The patient describes this as moderate in severity and worsening. Symptoms are relieved by non-opioid analgesics. Associated symptoms include chills and nausea, but do not include fever or vomiting. Note for UTI: No prior history of UTI. 05-31-2018 Unclassified (11 sources) Cold Symptoms - Symptoms include sneezing, nasal congestion, runny nose, purulent discharge (yellow, brown, green), ear pain (bilateral), sore throat (started with a sore throat, hurts now more from coughing and post nasal drainage), hoarseness, productive cough (yellow, brown, green. Is having shortness of breath with exertion), fever, chills, general malaise, headache and facial pain (is having neck pain posteriorly and achiness), but do not include wheezing. The onset was gradual 1 month(s) ago. The symptoms occur constantly. The patient describes this as moderate in severity and worsening (started to worsen on Thursday and is getting worse with each day). Current treatment includes non-prescription cold medication (Advil cold and sinus), allergy medications and Flonase (Albuterol inhaler). Risk factors do not include smoking. The patient has been exposed to an individual with an upper respiratory infection. Medical history includes recurrent sinusitis and tonsillectomy, but patient denies history of seasonal allergies, recurrent strep pharyngitis, asthma or recurrent ear infections. Note for Upper respiratory infection: Reviewed by QUIQUEK. 09-26-2016 Unclassified (11 sources) Cold Symptoms - Symptoms include nasal congestion, ear pain, sore throat (feels tight and constricting), fever, chills and headache, but do not include sneezing, runny nose, dry cough or general malaise. The onset was gradual 3 day(s) ago. The symptoms occur constantly. The patient describes this as moderate in severity and worsening. Current treatment includes acetaminophen and NSAIDs. Risk factors do not include smoking. The patient has not been exposed to an individual with similar symptoms or an individual with strep. Medical history includes recurrent sinusitis, but patient denies history of seasonal allergies or asthma. Note for Upper respiratory infection: generalized aching in neck and shoulders. Pt. c/o feeling of constripction in throat Pt. c/o difficulty swallowing at times. 06-25-2016 Unclassified (11 sources) Cold Symptoms - Symptoms include nasal congestion, runny nose (initially), purulent discharge, ear pain, sore throat, hoarseness, dry cough, fever, chills, general malaise, headache and facial pain, but do not include sneezing. The onset was sudden 6 day(s) ago. The symptoms occur constantly. The patient describes this as moderate in severity and worsening. Current treatment includes non-prescription cold medication. Risk factors do not include smoking. The patient has been exposed to an individual with an upper respiratory infection. Medical history includes recurrent sinusitis, but patient denies history of seasonal allergies, recurrent strep pharyngitis, asthma or tonsillectomy. 12-13-2014 Unclassified (11 sources) Cold Symptoms - Symptoms include nasal congestion, purulent discharge (post nasal), ear pain, sore throat, fever, chills, general malaise and headache (neck pain), but do not include sneezing, dry cough or productive cough. The onset was gradual 1 week(s) ago. The symptoms occur constantly. The patient describes this as severe and worsening. Current treatment includes non-prescription cold medication (dayquil). Risk factors do not include smoking. The patient has not been exposed to an individual with an upper respiratory infection. Patient denies history of seasonal allergies, recurrent sinusitis, recurrent strep pharyngitis, asthma, tonsillectomy or recurrent ear infections. 09-26-2014 Unclassified (11 sources) Cold Symptoms - Symptoms include nasal congestion, runny nose, purulent discharge, ear pain, ear fullness, sore throat, hoarseness, dry cough, productive cough, fever, chills, general malaise, headache and facial pain, but do not include sneezing. The onset was gradual 6 day(s) ago. The symptoms occur constantly. The patient describes this as moderate in severity and worsening. Current treatment includes non-prescription cold medication (advil cold and sinus). Risk factors do not include smoking. The patient has been exposed to an individual with similar symptoms. Medical history includes tonsillectomy, but patient denies history of seasonal allergies, recurrent sinusitis, recurrent strep pharyngitis, asthma or recurrent ear infections. Note for Upper respiratory infection: Pt. c/o episdoes of s.o.b, chest burning and swollen glands also. 07-05-2014 Unclassified (11 sources) Cold Symptoms - Symptoms include sore throat (swollen glands), chills, general malaise and headache. The onset was sudden 3 day(s) ago. The symptoms occur constantly. The patient describes this as moderate in severity and worsening. Current treatment includes acetaminophen and NSAIDs. Risk factors do not include smoking. The patient has been exposed to an individual with strep (both kids have had strep in the past month. Her daughter tested positive on Thursday.). Medical history includes tonsillectomy. 01-17-2014 Unclassified (11 sources) Cold Symptoms - Symptoms include nasal congestion, purulent discharge (post nasal), ear fullness, sore throat, hoarseness, dry cough, productive cough, fever, chills, general malaise, headache and facial pain, but do not include sneezing, runny nose or ear pain. The onset was gradual 5 day(s) ago. The symptoms occur constantly. The patient describes this as moderate in severity and worsening. Current treatment includes non-prescription cold medication and NSAIDs. Risk factors do not include smoking. The patient has been exposed to an individual with an upper respiratory infection (1 child with pneumonia, 1 with sinusitis - both started on abx thursday...) and an individual with similar symptoms. Medical history includes recurrent sinusitis and tonsillectomy, but patient denies history of seasonal allergies, recurrent strep pharyngitis, asthma or recurrent ear infections. Note for Upper respiratory infection: Pt c/o swollen glands also. 12-07-2013 Unclassified (11 sources) Cold Symptoms - Symptoms include nasal congestion, runny nose, non-purulent sputum, productive cough, wheezing and general malaise, but do not include sneezing, ear pain, ear fullness, dry cough, fever or headache. The onset was sudden 2 week(s) ago. The symptoms occur constantly. The patient describes this as moderate in severity and worsening (started with URI which started resolving about 1 week ago - then it seemd to quickly move into her chest). Current treatment includes non-prescription cold medication. The patient has not been exposed to an individual with similar symptoms. Medical history includes recurrent sinusitis and tonsillectomy, but patient denies history of seasonal allergies, recurrent strep pharyngitis, asthma or recurrent ear infections. 07-06-2013 Unclassified (11 sources) Pt here to discuss abnormal thyroid testing - Pt saw Dr Hobson recently for her yearly physical. At the o.v. pt. c/o frequent hot flashes, insomnia, fatigue. Bloodwork was done and her thyroid was abnormal. She was avised that her A1C would need to be addressed by general magistrate. Pt. 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 She was given prevacid by Dr Lewis, however it did not agree with her so she started using OTC prilosec; wondering if script could be written for this 04-28-2013 Unclassified (11 sources) Cold Symptoms - Symptoms include nasal congestion, runny nose, purulent discharge, ear fullness, sore throat (swollen glands), chills, general malaise, headache and facial pain, but do not include sneezing, productive cough, wheezing or fever. The onset was gradual 2 week(s) ago. The symptoms occur constantly. The patient describes this as moderate in severity and worsening. Current treatment includes non-prescription cold medication. Risk factors do not include smoking. The patient has been exposed to an individual with an upper respiratory infection. Medical History dose not include seasonal allergies, recurrent strep pharyngitis or recurrent ear infections. 10-07-2011 Unclassified (11 sources) Abdominal pain - The onset of the pain has been acute and has been occurring in a persistent pattern for 2 weeks. The course has been increasing. The pain is described as a moderate burning and sharp pain. The pain is located in the right upper quadrant and radiates to the right flank. The symptoms are aggravated by meals (1/2 to 1 hour after eating) (worse with high fat foods) but have no relieving factors. The symptoms have been associated with constipation, diarrhea and nausea, while the symptoms have not been associated with bloody stools, dysuria, fever, hematuria or vomiting (but has had nausea). Note for Abdominal pain: overall feels crummy 10-08-2010 Results Test Name Value Interpretation Reference Range Facility No Panel Informationon 06-12 [facility] CBC + DIFFon 05-23-2025 ANISO 2+ Normal [facility] Comment on above: Performed By: #### 2 [id number] #### [facility],[address] [place] [address] Baso # 0.01 x10EE3/UL Normal 0.00 - 0.10 [facility] Comment on above: Performed By: #### 2 07813 #### [facility],[address] [place] [address] Basophils/100 WBC (Bld) 0.2 % Normal 0.0 - 2.0 [facility] Comment on above: Performed By: #### 2 32223 #### [facility],[address] [place] [address] CBC + DIFF Normal [facility] Comment on above: Result Comment: CBC- COMPLETE BLOOD COUNT Performed By: #### 2 05615 #### [facility],[address] [place] [address] EO # 0.06 x10EE3/UL Normal 0.00 - 0.50 [facility] Comment on above: Performed By: #### 2 40722 #### [facility],[address] [place] [address] Eosinophils/100 WBC (Bld) 1.2 % Normal 0.0 - 7.0 [facility] Comment on above: Performed By: #### 2 26699 #### [facility],[address] [place] [address] Erythrocyte distribution width (RBC) [Ratio] 28.7 % High 12.0 - 15.6 [facility] Comment on above: Performed By: #### 2 21219 #### [facility],[address] [place] [address] Hematocrit (Bld) [Volume fraction] 26.2 % Low 34.0 - 46.0 [facility] Comment on above: Performed By: #### 2 82071 #### [facility],[address] [place] [address] Hemoglobin (Bld) [Mass/Vol] 8.0 g/dL Low 12.0 - 16.0 [facility] Comment on above: Performed By: #### 2 64476 #### [facility],[address] [place] [address] Lymph # 0.97 x10EE3/UL Normal 0.80 - 2.80 [facility] Comment on above: Performed By: #### 2 06784 #### [facility],[address] [place] [address] Lymphocytes/100 WBC (Bld) 18.3 % Low 20.0 - 45.0 [facility] Comment on above: Performed By: #### 2 38891 #### [facility],[address] [place] [address] MANUAL DIFF N/A Normal [facility] Comment on above: Performed By: #### 2 59048 #### [facility],[address] [place] [address] 92763 MCH (RBC) [Entitic mass] 20 pg Low 27 - 33 [facility] Comment on above: Performed By: #### 2 39896 #### [facility],[address] [place] [address]33 MCHC 31 X10 3 Low 32 - 36 [facility] Comment on above: Performed By: #### 2 81511 #### [facility],[address] [place] [address] 59718 MCV (RBC) [Entitic vol] 67 fL Low 80 - 99 [facility] Comment on above: Performed By: #### 2 35660 #### [facility],[address] [place] [address] 39512 MICROCYTES 2+ Normal [facility] Comment on above: Performed By: #### 2 89159 #### [facility],[address] [place] [address] [place] # 0.35 x10EE3/UL Normal 0.20 - 1.00 [facility] Comment on above: Performed By: #### 2 58736 #### [facility],[address] [place] [address] MONOS % 6.5 % Normal 0.0 - 10.0 [facility] Comment on above: Performed By: #### 2 41017 #### [facility],[address] [place] [address] Morphology Garcia (Bld) [Interp] SEE BELOW Normal [facility] Comment on above: Performed By: #### 2 52661 #### [facility],[address] [place] [address] Neut # 3.93 x10EE3/UL Normal 1.50 - 7.10 [facility] Comment on above: Performed By: #### 2 91749 #### [facility],[address] [place] [address] Neutrophils/100 WBC (Bld) 73.8 % Normal 46.0 - 76.0 [facility] Comment on above: Performed By: #### 2 78667 #### [facility],[address] [place] [address] PLATELET 524 x10EE3/UL High 150 - 450 [facility] Comment on above: Performed By: #### 2 21293 #### [facility],[address] [place] [address] Platelet mean volume (Bld) [Entitic vol] 6.9 fL Normal 6.6 - 10.5 [facility] Comment on above: Result Comment: AUTO MATED DIFFERENTIAL Performed By: #### 2 95757 #### [facility],[address] [place] [address] PLT EST INCREASED Normal [facility] Comment on above: Performed By: #### 2 71710 #### [facility],[address] [place], [place] [id number] RBC 3.94 x 10EE6/UL Low 4.10 - 5.30 [facility] Comment on above: Performed By: #### 2 21520 #### [facility],[address] [place], [place] [id number] WBC 5.3 x 10EE3/UL Normal 4.5 - 10.8 [facility] Comment on above: Performed By: #### 2 81169 #### [facility],[address] [place] [address] Other 0 Normal [facility] Comment on above: Performed By: #### 2 06081 #### [facility],[address] [place] [address] No Panel Informationon 05-11 [facility], [facility], [facility]. Pelvic w/ Transvaginalon Pelvic w/ Transvaginal [facility] Imaging Services [address] [place] [address] Pelvic w/ Transvaginal MR#: [id number] Acct: [id number] Name: YOKO BARBA Rep #: [id number] : 1985 F 39 From: Fadi Valentin MD PCP: NIALL Adame [facility] Study: Pelvic w/ Transvaginal Date of Exam: 05/11/25 Exam# [id number] Ordering Dr: Maura Vargas PROCEDURE: PELVIC W/ TRANSVAGINAL 05/11/2025 REASON FOR EXAM: FIBROIDS PRE-OP TECHNIQUE: PELVIC W/ TRANSVAGINAL COMPARISON: 03/11/2025. FINDINGS: Anteverted uterus measures 16.3 x 12.2 x 11.6 cm. Large fundal fibroid measuring 9.3 x 9.6 x 8.3 cm. The endometrium is obscured. Right ovary measures 3.7 x 2.4 x 2.2 cm with preserved vascular flow. No visualized ovarian mass. Left ovarian 3.6 x 2.0 x 2.1 cm with preserved vascular flow. There is dominant follicle. No mass. No free fluid in the cul-de-sac. US/Pelvic w/ Transvaginal IMPRESSION: Large uterine fundal fibroid. Reading Location: [id number] CC: Dr. 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 When Was Last Pacemaker Check QUESTION #4 FULL TEXT: You/Your Family Experience fever (hyperthermia) with Anesthesia Last Oral Intake Last Oral intake: Last Oral Intake NPO since Meds taken in AM with sips of water? Meds patient instructed to take am of surgery PONV PONV - logistics engineering manager: PONV - logistics engineering manager Female Yes 05/04/25 12:33 HX of Motion Sickness Yes 05/04/25 12:33 HX of N/V After Surgery No 05/04/25 12:33 Non-Smoker Yes 05/04/25 12:33 Duration of Surgery greater Yes 05/04/25 12:33 than 60 minutes Number of Risk Factors 4 05/04/25 12:33 PONV Score Severe Risk 05/04/25 12:33 Height Weight Height Weight: Anesthesia: Height Weight Height 5 ft 1 in 05/08/25 11:01 Respiratory Assessment Respiratory Assessment - logistics engineering manager: Respiratory Tract Infection Hx - logistics engineering manager Hx Respiratory Tract Infection No 05/04/25 12:33 STOP Sleep Apnea STOP Sleep Apnea - logistics engineering manager: STOP Sleep Apnea - logistics engineering manager Hx Hypertension No 05/04/25 12:33 Hx Sleep Apnea No 05/04/25 12:33 CPAP BIPAP Do you snore loudly (louder Yes 05/04/25 12:33 than talking or can be heard Do you often feel tired/ Yes 05/04/25 12:33 fatigued/ sleepy during daytime? Has anyone observed you stop No 05/04/25 12:33 breathing during sleep? STOP Results Positive 05/04/25 12:33 QUESTION #5 FULL TEXT : Do you snore loudly (louder than talking or can be heard through closed doors)? 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 confused, unrespo /Reproduct ion History /Reproduct jose c History - logistics engineering manager: /Reproduct jose c Hx- logistics engineering manager Hx Now No 05/04/25 12:33 Gestational Age (in weeks): EDC: Hx Hx Para Hx Section SAB No 05/08/25 11:05 PFSH Medical History Wears glasses Wears contact lenses Low iron Easy bruising Restless legs Back pain Syncope Heartburn Non-smoker History of irregular heartbeat Lyme disease Vitamin D deficiency disease Hailey thyroiditis Home Medications ???Medication ???Instructions ???Recorded ???Last Taken ???Type thyroid (pork) 75 mg PO DAILY THYROID 02/06/25 Un known History womens daily multivitamin 1 cap PO DAILY SUPPLEMENT 02/06/25 Unknown History magnesium 250 mg tablet 250 mg PO DAILY SUPPLEMENT 5 Unknown History megestrol 20 mg tablet 20 mg PO BID #45 tabs 05/08/25 Unk nown Rx ferrous sulfate 325 mg (65 mg 325 mg PO BID #60 tabs 05/09/25 Un known Rx iron) tablet (Feosol) sulfamethoxazole 800 1 tab PO BID 3 days #6 tabs Unknown Rx mg-trimethoprim 160 mg tablet (Bactrim DS) Allergy/AdvReac Type Severity Reaction Status Date / Time acetaminophen (From Vicodin) AdvRe (more content not included)... Normal [facility] Urine Cultureon 05-09-2025 URC Below infection level. Coag Negative Staph [place] Count <1000 Normal [facility] Comment on above: Performed By: #### M 100.2200 #### [facility] [address] [place], [address] CBC-Complete Blood Cnt No Di ffon 05-08-2025 Erythrocyte distribution width (RBC) [Ratio] 17.1 % High 11.6-14.6 [facility] Comment on above: Performed By: #### B TSPAT, L100.0500 #### [facility] [address] [place], [address] Hematocrit (Bld) [Volume fraction] 23.5 % Low 37-47 [facility] Comment on above: Performed By: #### B TSPAT, L100.0500 #### [facility] [address] [place], [address] Hemoglobin (Bld) [Mass/Vol] 6.3 g/dL Low 12.0-15.0 [facility] Comment on above: Performed By: #### B TSPAT, L100.0500 #### [facility] [address] [place], [id number] MCH (RBC) [Entitic mass] 17.7 pg Low 27.0-32.0 [facility] Comment on above: Performed By: #### B TSPAT, L100.0500 #### [facility] [address] [place], [address] MCHC (RBC) [Mass/Vol] 26.8 g/dL Low 32-36 [facility] Comment on above: Performed By: #### B TSPAT, L100.0500 #### [facility] [address] [place], [address] MCV (RBC) [Entitic vol] 66.2 fL Low 81-99 [facility] Comment on above: Performed By: #### B TSPAT, L100.0500 #### [facility] [address] [place], [id number] Platelet mean volume (Bld) [Entitic vol] 9.3 fL Normal 6.2-12.0 [facility] Comment on above: Performed By: #### B TSPAT, L100.0500 #### [facility] [address] [place], [address] Platelets (Bld) [#/Vol] 589 10*3/uL High 150-450 [facility] Comment on above: Performed By: #### B TSPAT, L100.0500 #### [facility] [address] [place], [id number] RBC (Bld) [#/Vol] 3.55 10*6/uL Low 4.2-5.4 [facility] Comment on above: Performed By: #### B TSPAT, L100.0500 #### [facility] [address] [place], [address] RDW SD 40.3 fl Normal 35.1-43.9 [facility] Comment on above: Performed By: #### B TSPAT, L100.0500 #### [facility] [address] [place], [address] WBC (Bld) [#/Vol] 5.7 10*3/uL Normal 4.4-11.0 [facility] Comment on above: Performed By: #### B TSPAT, L100.0500 #### [facility] [address] [place], [address] Laboratory - Chemistry and C hemistry - challengeOrdered By: Maura Vargas on 05-08-2025 Bilirubin Ql (U) Negative [facility] Glucose Ql (U) Negative [facility] Ketones Ql (U) Negative [facility] pH (U) 7.5 [pH] [facility] Specific gravity (U) [Rel density] 1.005 [facility] Urobilinogen (U) [Mass/Vol] 0.6718449 mg/dL [facility] - Hematology and Cell countsOrdered By: Maura Vargas on 05-08-2025 Hemoglobin Ql (U) Large [facility] - Specimen inform ationOrdered By: Maura Vargas on 05-08-2025 Clarity (U) Clear [facility] Color (U) Colorless [facility] - UrinalysisOrder ed By: Maura Vargas on 05-08-2025 Nitrite Ql (U) Negative [facility] Protein Ql (U) Negative [facility] Liver Profileon 05-08-2025 Albumin [Mass/Vol] 4.7 g/dL Normal 3.5-5.0 [facility] Comment on above: Performed By: #### M 100.2200 #### [facility] [address] [place], [address] ALK PHOS 68 U/L Normal 35-104 [facility] Comment on above: Performed By: #### M 100.2200 #### [facility] [address] [place], [address] ALT [Catalytic activity/Vol] 20 U/L Normal <=34 [facility] Comment on above: Performed By: #### M 100.2200 #### [facility] [address] [place], [address] AST [Catalytic activity/Vol] 20 U/L Normal <=31 [facility] Comment on above: Performed By: #### M 100.2200 #### [facility] [address] [place], [address] Bilirubin [Mass/Vol] 0.23 mg/dL Normal 0.00-1.30 [facility] Comment on above: Performed By: #### M 100.2200 #### [facility] [address] [place], [address] Bilirubin.direct [Mass/Vol] 0.11 mg/dL Normal 0.00-0.30 [facility] Comment on above: Performed By: #### M 100.2200 #### [facility] [address] [place], [address] Globulin (S) [Mass/Vol] 2.8 g/dL Normal 2.2-4.2 [facility] Comment on above: Performed By: #### M 100.2200 #### [facility] [address] [place], [address] T PROT 7.6 g/dL Normal 5.9-8.4 [facility] Comment on above: Performed By: #### M 100.2200 #### [facility] [address] 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 Is patient in pain?: Yes (pelvic pain and pressure) Allergies acetaminophen (From Vicodin) Adverse Reaction (Intermediate, Verified 05/04/25 12:30) Vomiting hydrocodone (From Vicodin) Adverse Reaction (Intermediate, Verified 05/04/25 12:30) Vomiting Medications ???Medication ???Instructions ???Recorded ???Confirmed ???Type thyroid (pork) 75 mg PO DAILY THYROID 02/06/25 History womens daily multivitamin 1 cap PO DAILY SUPPLEMENT 02/06/25 05/08/25 History magnesium 250 mg tablet 250 mg PO DAILY SUPPLEMENT 5 05/08/25 History Is last menstrual period known: Yes Last Menstrual Period: 04/29/25 Post menopausal: No Patient : No : No PFSH Medical History Wears glasses Wears contact lenses Low iron Easy bruising Restless legs Back pain Syncope Heartburn Non-smoker History of irregular heartbeat Lyme disease Vitamin D deficiency disease Hailey thyroiditis Surgical History Hx of wisdom tooth extraction History of tonsillectomy and adenoidectomy S/P Family History Other Hypertension Thyroid disorder Social History adopted: No household members: family housing: house number of children: 2 current occupational status: employed 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 current occupational exposures/hazards: No pets and animals: Yes pets and animals: dog(s) history of recent travel: No sexually active: Yes Smoking Status: Never smoker second hand exposure: No alcohol intake: never substance use type: does not use well-balanced diet: about half the time caffeine: No eating out: 1-3 times/week during the past year weight has: decreased > 10 lbs what type of physical activity do you participate in: walking frequency: 5-6 times per week duration: 15-30 minutes/day brant/confucianism: Evangelical seatbelt use: always do you feel safe at home: Yes additional social history: - Azam [facility] Details: YOKO BARBA is a 39 year old who presents for preop visit. She is a follow up from being diagnosed of an enlarged uterus and fibroid. she has a history of heavy menses lasting 2 week and heavy for years. she has a history of lyme disease. she struggles with this and has relapses with joint pain. she has a 16 weeks size uterus with a 10 cm fibroid, and has a history of severe scar tissue from her last cesaren section. she had a cbc and thyroid labs within the last few months at [facility] that was normal. EMB done and minimal tissue obtained Female Reproductive History Last Menstrual Period: 04/29/25 Questions: metorrhagia: No, sexually active: Yes, dyspareunia: No and PCB: No Menopausal Symptoms: No hot flashes, No night sweats, No weight change, No mood changes, No difficulty concentrating, No sleep problems and No change in libido History 3 Elective abortions Hx Para 2 Spontaneous abortions Hx # Term Pregnancies Ectopic pregnancies Hx # Pregnancies Multiple births # of living children 2 Past Pregnancies Del. Date Name GA/Weeks Outcome Route Bth Weight Gen Labor Lgth Anesthesia Del [facility] Provider FOB Unknown 2007 Eliceo Male Unknown 2008 Britta Female ROS Const Constitutional: Denies fatigue, night sweats, weight gain or weight loss ENT ENT: Reports system reviewed and no additional complaints, except as documented Cardio Card: Denies chest pain Resp Resp: Denies cough or dyspnea GI GI: Reports as per HPI; Denies constipation, nausea or vomiting : Reports as per HPI; Denies hot flashes, nipple discharge, vaginal discharge, vaginal dryness, vaginal odor or vaginal pruritus Musc Musc: Denies arthralgias, back pain or muscle weakness Skin Skin/Breast: Denies alopecia, change in hair, dry skin, breast mass, breast pain, breast skin changes or nipple discharge Neuro Neuro: Reports system reviewed and no additional complaints, except as documented Psych Psych: Reports system reviewed and no additional complaints, except as documented; Denies change in li (more content not included)... Normal [facility] Partial Thromboplast Timeon 05-08-2025 aPTT Coag (Bld) [Time] 25.4 s Normal 24.1-36.2 [facility] Comment on above: Performed By: #### L 500.3400, L300.3900, L501.5200, L300.4310, L501.9520, L506.0400 #### [facility] [address] [place] [place], [address] Prothrombin Time w/INRon INR Coag (PPP) [Relative time] 1.0 {INR} Normal [facility] Comment on above: Performed By: #### L 500.3400, L300.3900, L501.5200, L300.4310, L501.9520, L506.0400 #### [facility] [address] [place], [address] PT Coag (PPP) [Time] 13.1 s Normal 11.7-14.9 [facility] Comment on above: Performed By: #### L 500.3400, L300.3900, L501.5200, L300.4310, L501.9520, L506.0400 #### [facility] [address] [place], [place], [address] T4 Free Directon 05-08-2025 T4 FREE DIRECT 0.70 ng/dL Low 0.76-1.46 [facility] Comment on above: Performed By: #### M 100.2200 #### [facility] [address] [place], [place], [address] Thyroid Stim Hormone (TSH)on 05-08-2025 TSH 6.810 uIU/mL High 0.300-4.200 [facility] Comment on above: Performed By: #### M 100.2200 #### [facility] [address] 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 Is patient in pain?: No Allergies acetaminophen (From Vicodin) Adverse Reaction (Intermediate, Verified 03/20/25 13:36) Vomiting hydrocodone (From Vicodin) Adverse Reaction (Intermediate, Verified 03/20/25 13:36) Vomiting Medications ???Medication ???Instructions ???Recorded ???Confirmed ???Type herbal tic immune support PO 02/06/25 03/20/25 History magnesium chloride PO 02/06/25 03/20/25 History thyroid (pork) [[place] Thyroid] PO 02/06/25 03/20/25 History womens daily multivitamin PO 02/06/25 03/20/25 History iron-Vit R-Nuftgozdv-ixbho pepper PO 03/20/25 03/20/25 History Is last menstrual period known: Yes Last Menstrual Period: 02/26/25 Post menopausal: No Patient : No : No [facility] Medical History Lyme disease Vitamin D deficiency disease Hailey thyroiditis GERD (gastroesophageal reflux disease) UTI (urinary tract infection) Anemia Surgical History S/P Family History Other Hypertension Thyroid disorder Social History adopted: No household members: family housing: house number of children: 2 current occupational status: employed 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 current occupational exposures/hazards: No pets and animals: Yes pets and animals: dog(s) history of recent travel: No sexually active: Yes Smoking Status: Never smoker second hand exposure: No alcohol intake: never substance use type: does not use well-balanced diet: about half the time caffeine: No eating out: 1-3 times/week during the past year weight has: decreased > 10 lbs what type of physical activity do you participate in: walking frequency: 5-6 times per week duration: 15-30 minutes/day brant/confucianism: Evangelical seatbelt use: always do you feel safe at home: Yes additional social history: - Azam HPI discuss large fibroid *$25 copay Details: YOKO BARBA is a 39 year old who presents for follow up enlarged uterus and fibroid. she has a history of heavy menses lasting 2 week and heavy for years. she has a history of lyme disease. she struggles with this and has relapses with joint pain. she has a 16 weeks size uterus with a 10 cm fibroid, and has a history of severe scar tissue from her last cesaren section. she had a cbc and thyroid labs within the last few months at [facility] that was normal. Female Reproductive History Last Menstrual Period: 02/26/25 Questions: metorrhagia: No, sexually active: Yes, dyspareunia: No and PCB: No Menopausal Symptoms: No hot flashes, No night sweats, No weight change, No mood changes, No difficulty concentrating, No sleep problems and No change in libido History 3 Elective abortions Hx Para 2 Spontaneous abortions Hx # Term Pregnancies Ectopic pregnancies Hx # Pregnancies Multiple births # of living children 2 Past Pregnancies Del. Date Name GA/Weeks Outcome [facility] F[facility] 2007 L[place] Male Unknown 2008 Britta Female ROS Const Constitutional: Denies fatigue, night sweats, weight gain or weight loss ENT ENT: Reports system reviewed and no additional complaints, except as documented Cardio Card: Denies chest pain Resp Resp: Denies cough or dyspnea GI GI: Reports as per HPI; Denies constipation, nausea or vomiting : Reports as per HPI; Denies hot flashes, nipple discharge, vaginal discharge, vaginal dryness, vaginal odor or vaginal pruritus Musc Musc: Denies arthralgias, back pain or muscle weakness Skin Skin/Breast: Denies alopecia, change in hair, dry skin, breast mass, breast pain, breast skin changes or nipple discharge Neuro Neuro: Reports system reviewed and no additional complaints, except as documented Psych Psych: Reports system reviewed and no additional complaints, except as documented; Denies change in libido or difficulty concentrating Endo Endo: Denies cold intolerance, excessive sweating, heat intolerance or polydipsia Werner (more content not included)... Normal [facility] Surgery Specimen Level Chelle 03-20-2025 Surgery Specimen Level IV Patient Age/Sex Location Account Attending Physician YOKO BARBA 39/F LAB[facility] [id number] Dr. Maura Vargas MD Specimen: [id number] Received: 03/20/25 Status: DONALD Palafox Num: [id number] Spec Type: ENDOM BX/C Jalyn Dr: Dr. Maura Vargas MD HEADER OPERATION: Endometrial biopsy PRE-OP DIAGNOSIS: Abnormal uterine bleeding TISSUE SUBMITTED: A- Endometrial tissue MICROSCOPIC DIAGNOSIS A. Endometrium, biopsy: * Benign endocervical tissue. * No endometrium seen. MICROSCOPIC DESCRIPTION Slides are reviewed. GROSS DESCRIPTION A. Received in formalin in a container labeled with the patient's name, date of , and with the accompanying paperwork indicating, endometrial tissue are multiple singh fragments of soft tissue admixed with blood and mucus measuring 2.7 x 1.1 x 0.2 cm in aggregate. Submitted in toto in A1. [facility] 03-21-2025 CPT:97219 Patient Age/Sex Location Account Attending Physician YOKO BARBA 39/F [facility] [id number] Dr. Maura Vargas MD Signed (signatur e on file) Dr. Kiara Byrd MD 03/27/25 1119 Normal [facility] Comment on above: Performed By: #### M 100.2200 #### [facility] [address] [place], [place], [address] No Panel Informationon 03-14 [facility], [facility]. Pelvic w/ Transvaginalon Pelvic w/ Transvaginal [facility] Imaging Services [address] [place], [place] [address] Pelvic w/ Transvaginal MR#: [id number] Acct: [id number] Name: YOKO BARBA Rep #: [id number] : 1985 F 39 From: Sonu Lam MD PCP: NIALL Adame Status: REG CLI Study: Pelvic w/ Transvaginal Date of Exam: 03/09/25 Exam# [id number] Ordering Dr: Joyce Boyce [facility] PROCEDURE: PELVIC W/ TRANSVAGINAL 03/09/2025 REASON FOR EXAM: UTERINE MASS TECHNIQUE: Transabdominal and transvaginal pelvic ultrasound FINDINGS: Transabdominal and transvaginal imaging. Enlarged uterus measures 14.5 x 10.9 x 10.1 cm and contains a heterogeneous mass at the fundal portion measuring 9.2 x 10.2 x 8.5 cm consistent with a large fibroid. The endometrium is not visualized. Cervix appears within limits. The right ovary is not visualized. The left ovary measures 3.5 x 2.2 x 2.4 cm and appears within limits. No evidence of adnexal mass. No free fluid seen. Bladder volume 506 cc. US/Pelvic w/ Transvaginal IMPRESSION: Enlarged uterus measures 14.5 x 10.9 x 10.1 cm and contains a heterogeneous mass at the fundal portion measuring 9.2 x 10.2 x 8.5 cm consistent with a large fibroid. The endometrium is not visualized. The right ovary is not visualized. No free fluid seen. Reading Location: [id number] CC: VIPUL Boyce; NIALL Adame Metal Fabricator: Signed Normal [facility] No Panel Informationon 03-03 [facility], [facility].; [facility] Abdomen/Pelvis WITH Contrast on 03-02-2025 Abdomen/Pelvis WITH Contrast [facility] Imaging Services [address] [place], [place] [address] Abdomen/Pelvis WITH Contrast MR#: [id number] Acct: [id number] Name: YOKO BARBA Rep #: [id number] : 1985 F 39 From: Bill arechiga MD PCP: NIALL Adame Status: REG CLI Study: Abdomen/Pelvis WITH Contrast Date of Exam: Exam# [id number] Ordering Dr: Joyce Boyce PROCEDURE: ABDOMEN/PELVIS WITH CONTRAST 03/02/2025 REASON FOR EXAM: PELVIC MASS Right-sided abdominal pain. TECHNIQUE: Abdomen and pelvis CT with intravenous contrast. Coronal and Sagittal reconstruction series were provided. PATIENT PREPARATION: Per protocol ORAL CONTRAST TYPE: Oral contrast was given. CONTRAST: Isovue-300 VOLUME: 100 mL One or more dose reduction techniques were used (e.g., Automated exposure control, adjustment of the mA and/or kV according to patient size, use of iterative reconstruction technique. RADIATION DOSE SUMMARY: CTDlvol: 10 mGy DLP: 545.19 mGycm COMPARISON: None FINDINGS: Lung bases: Unremarkable Liver: Unremarkable Gallbladder: Unremarkable Spleen: Normal size. Pancreas: Normal size without evidence of mass surrounding inflammation or ductal dilation. Adrenals: Unremarkable Kidneys: Normal renal sizes. No hydronephrosis. Bladder: Unremarkable Reproductive Organs: Marked enlargement of the uterus in keeping with the large fibroid uterus. Bowel: Unremarkable Appendix: The appendix is not identified. There is no inflammatory process identified in the right lower quadrant to suggest appendicitis. Lymph nodes: Unremarkable. Vasculature: The abdominal aorta and IVC are normal. Peritoneum / Retroperitoneum: Unremarkable Bones: Limbus vertebrae along the superior anterior endplate of L5 vertebrae. CT/Abdomen/Pelvis WITH Contrast IMPRESSION: Markedly enlarged fibroid uterus. . Reading Location: [id number] CC: VIPUL Boyce; NIALL Adame Metal Fabricator: Signed Normal [facility] PAP IG HPV APTIMA 16/18,45on 02-13-2025 ADEQ Comment Normal . [facility] Comment on above: Order Comment: Speci men Comment: [id number] Specimen Comment: No. of containers..01 ThinPrep Vial Result Comment: Sati sfactory for evaluation. No endocervical component is identified. Performed By: #### L 7400.0280 #### [facility] [address] [place], [place], [address] COMM . Normal . [facility] Comment on above: Order Comment: Speci men Comment: [id number] Specimen Comment: No. of containers..01 ThinPrep Vial Performed By: #### L 7400.0280 #### [facility] [address] [place], [place], [address] COMMENT Comment Normal . [facility] Comment on above: Order Comment: Speci men Comment: [id number] Specimen Comment: No. of containers..01 ThinPrep Vial Result Comment: This liquid based ThinPrep(R) pap test was screened with the use of an image guided system. Performed By: #### L 7400.0280 #### [facility] [address] [place], [place], [address] DIAG Comment Normal . [facility] Comment on above: Order Comment: Speci men Comment: [id number] Specimen Comment: No. of containers..01 ThinPrep Vial Result Comment: NEGA TIVE FOR INTRAEPITHELIAL LESION OR MALIGNANCY. THIS SPECIMEN WAS RESCREENED PART OF OUR FIELD SAMPLING TECHNICIAN PROGRAM. Performed By: #### L 7400.0280 #### [facility] [address] [place], [place], [address] HPV APTIMA, HR Negative Normal Negative [facility] Comment on above: Order Comment: Speci men Comment: [id number] Specimen Comment: No. of containers..01 ThinPrep Vial Result Comment: This nucleic acid amplification test detects fourteen high- risk HPV types (16,18,31,33,35,39,45,51,52,56,58,59,66,68) without differentiation. Performed By: #### L 7400.0280 #### [facility] [address] [place], [address] HPV Marianna Rfx Comment Normal . [facility] Comment on above: Order Comment: Speci men Comment: [id number] Specimen Comment: No. of containers..01 ThinPrep Vial Result Comment: Crit eria not met, HPV Genotype not performed. Performed at: - [facility] [id number] Painter And Decorator: Jeanette Bass MD, Phone: [phone] Performed at: =G - [facility] [id number] Painter And Decorator: Jeanette Bass MD, Phone: [phone] Performed By: #### L 7400.0280 #### [facility] [address] [place], [address] PAPSMR Comment Normal . [facility] Comment on above: Order Comment: Speci men Comment: [id number] Specimen Comment: No. of containers..01 ThinPrep Vial Result Comment: The Pap smear is a screening test designed to aid in the detection of premalignant and malignant conditions of the uterine cervix. It is not a diagnostic procedure and should not be used as the sole means of detecting cervical cancer. Both false-positive and false-negative reports do occur. Performed By: #### L 7400.0280 #### [facility] [address] [place], [place], [address] PERFORM Comment Normal . [facility] Comment on above: Order Comment: Speci men Comment: [id number] Specimen Comment: No. of containers..01 ThinPrep Vial Result Comment: Oniel Holm, Animal Control Supervisor (ASCP) Performed By: #### L 7400.0280 #### [facility] [address] [place], [address] QC REV Comment Normal . [facility] Comment on above: Order Comment: Speci men Comment: [id number] Specimen Comment: No. of containers..01 ThinPrep Vial Result Comment: Wesley Lutz, Animal Control Supervisor (ASCP) Performed By: #### L 7400.0280 #### [facility] [address] [place], [address] Cervical or vaginal specimen microscopic examination by liquid based cytology (reportOrdered By: Joyce Boyce on 02-06-2025 Cytology report Cyto stain.thin prep Doc (Cvx/Vag) Comment . [facility] Comment on above: Criteria not met, HP V Genotype not performed.Performed at: - [facility] [id number] Director: Jeanette Bass MD, Phone: [phone] at: =[facility] [id number] Director: Jeanette Bass MD, Phone: [phone] Cervical or vagninal specime n microscopic examination by cytology stain (reported asOrdered By: Joyce Boyce on 02-06-2025 Cytology report Cyto stain Doc (Cvx/Vag) Comment . [facility] Comment on above: The Pap smear is a s creening test designed to aid in thedetection of premalignant and malignant conditions of theuterine cervix. It is not a diagnostic procedure andshould not be used as the sole means of detecting cervicalcancer. Both false-positive and false-negative reports dooccur. Detection in cervical specim en of any of human papilloma virus (HPV) 16, 18, 31, 33,Ordered By: Joyce Boyce on 02-06-2025 HPV 16+18+31+33+35+39+45+51 +52+56+58+59+66+68 DNA Probe+sig amp Ql (Cvx) Negative Negative [facility] Comment on above: This nucleic acid am plification test detects fourteen high-risk HPV types (16,18,31,33,35,39,45,51,52,56,58,59,66,68)without differentiation. Laboratory - CytologyOrdered By: Joyce Boyce on 02-06-2025 Animal Control Supervisor Cyto stain Nom (Cvx/Vag) [ID] Comment . [facility] Comment on above: Lisa Holm Cyto logist (ASCP) Laboratory - Miscellaneous t estsOrdered By: Joyce Boyce on 02-06-2025 Service comment (Unsp spec) [Interp] . . [facility] No Panel InformationOrdered By: Joyce Boyce on 02-06-2025 Pap Smear QC Review Comment . [facility] Comment on above: Sara Alvarezl ogist (ASCP) Pap Smear Specimen Adequacy Comment . [facility] Comment on above: Satisfactory for meena luation. No endocervical component is identified. 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 Is patient in pain?: No Allergies acetaminophen (From Vicodin) Adverse Reaction (Intermediate, Verified 02/06/25 08:13) Vomiting hydrocodone (From Vicodin) Adverse Reaction (Intermediate, Verified 02/06/25 08:13) Vomiting Medications ???Medication ???Instructions ???Recorded ???Confirmed ???Type herbal tic immune support PO 02/06/25 History magnesium chloride PO 02/06/25 02/06/25 History thyroid (pork) [[place] Thyroid] PO 02/06/25 02/06/25 History womens daily multivitamin PO 02/06/25 History Is last menstrual period known: Yes Last Menstrual Period: 01/23/25 Post menopausal: No Patient : No : No Do you think of yourself as: straight/heterosexu al Current gender identity: female Control Method: vasectomy [facility] Medical History (Updated 02/06/25 @ 09:10 by XOCHILT RicoC) Lyme disease Vitamin D deficiency disease Hailey thyroiditis GERD (gastroesophageal reflux disease) UTI (urinary tract infection) Anemia Surgical History (Updated 02/06/25 @ 08:22 by Regine Caro) S/P Family History (Updated 02/06/25 @ 08:23 by Regine Caro) Other Hypertension Thyroid disorder Social History adopted: No household members: family housing: house number of children: 2 current occupational status: employed current occupation: [employer] [facility] [employer] current occupational exposures/hazards: No pets and animals: Yes pets and animals: dog(s) history of recent travel: No sexually active: Yes Smoking Status: Never smoker second hand exposure: No alcohol intake: never substance use type: does not use well-balanced diet: about half the time caffeine: No eating out: 1-3 times/week during the past year weight has: decreased > 10 lbs what type of physical activity do you participate in: walking frequency: 5-6 times per week duration: 15-30 minutes/day brant/confucianism: Evangelical seatbelt use: always do you feel safe at home: Yes additional social history: - Azam History 3 Elective abortions Hx Para 2 Spontaneous abortions Hx # Term Pregnancies Ectopic pregnancies Hx # Pregnancies Multiple births # of living children 2 HPI Encounter for routine gynecological examination Details: YOKO BARBA is a 39 year old who presents for annual exam. Previous patient of [facility]. She is here to establish for her annual. She reports she has feels a mass like lump when she is laying down. She reports this as a firm lump. She also associates urgency, frequency. Denies symptoms of a UTI; denies hematuria. She reports she noticed this several months ago (closer to a year). She notices if there is pressure on this area she is uncomfortable as well. She reports Itchy dryness vaginally as well; no discharge; does have irritation after sex. 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 She reports in May she also contracted lymes disease--has had a rough go since then with her health. Last PAP: 2022; negative per patient History of abnormal PAP: in high school; normal since. Last mammogram: 2019; normal. History of abnormal mammogram: none Colon cancer screening: None Other preventative health care screenings: Jair Paige ([facility]). Female Reproductive History Last Menstrual Period: 01/23/25 Cycle Length: 21-35 Bleeding Duration: 5 Questions: metorrhagia: No, sexually active: Yes (vasectomy), dyspareunia: No and PCB: No ROS Const Constitutional: Denies chills, fatigue, fever(s), headache(s) or weight loss Eyes Eyes: Denies change in vision ENT ENT: Denies dizziness Resp Resp: Denies cough GI GI: Reports as per HPI and nausea; Denies abdominal pain or constipation : Denies difficulty voiding, dysuria, hematuria, nipple discharge, pelvic pain, prolapse symptoms, urinary incontinence, vaginal discharge, vaginal dryness, vaginal odor or vaginal pruritus Skin Skin/Breast: Denies alopecia, rash, breast mass, breast pain, breast skin changes or nipple discharge Neuro Neuro: Denies dizziness Psych Psych: Denies anxiety or depression Endo Endo: Denies cold intolerance, excessive sweating or heat intolerance Exam Const General: cooperative, healthy appearing, comfortable, no acute distress, w (more content not included)... Normal [facility] T3, FREE [CCL]on 10-15-2024 Free T3 [Mass/Vol] 4.7 pg/mL High 2.3-4.1 [facility] Comment on above: Result Comment: [place] [address] Mark Monique III, M.D. [id number] Performed By: #### 2 53325 #### [facility],[address] [place] [address] T3Free SerPl-mCncon 10-14-20 Free T3 [Mass/Vol] 4.7 pg/mL High 2.3-4.1 [facility] Comment on above: Order Comment: Speci men Type: BLOOD SPECIMEN Ordering Facility: [facility] Address: [address] [place] [address] Performed By: #### 3 051-0 #### [facility] CLIA [id number] [address] [place], [place] [address] [place] [id number] [place] [facility] T4-FREE (FREE THYROXINE)on 12-15-2023 Free T4 [Mass/Vol] 0.69 ng/dL Low 0.76 - 1.46 [facility] Comment on above: Result Comment: P otential of falsely elevated results when biotin concentrations are > 10 ng/mL. Performed By: #### 2 43735 #### [facility],[address] [place], [place] [address] TSHon 10-14-2024 TSH Qn 6.11 m[IU]/L High 0.35 - 3.74 [facility] Comment on above: Performed By: #### 2 22164 #### [facility],[address] [place], [place] [id number] No Panel Informationon 07-21 [facility], [facility].; [facility], [facility]. [facility], [facility].; [facility], [facility]. MAHESH BY IFA SCREEN [CCL]on Nuclear Ab IF (S) [Titer] Negative Normal Negative [facility] Comment on above: Result Comment: Anti -nuclear antibody test is used as an aid in diagnosis of systemic autoimmune diseases. Where positive and clinically warranted, follow-up using disease-specific testing is recommended. Low positive titers are not uncommon with advanced age, certain chronic infections, and malignancies among others. Test methodology: Indirect fluorescence immunoassay (IFA) using HEp-2 cells. [place] [id number] Mark Monique III, M.D. [id number] Performed By: #### 2 36176 #### [facility],[address] [place] [address] MAHESH BY IFA SCREENon 07-15-20 24 Nuclear Ab Ql (S) Negative Normal Negative [facility] Comment on above: Order Comment: Speci men Type: BLOOD SPECIMEN Ordering Facility: [facility] Address: [address] [place] [address] Result Comment: Anti -nuclear antibody test is used as an aid in diagnosis of systemic autoimmune diseases. Where positive and clinically warranted, follow-up using disease-specific testing is recommended. Low positive titers are not uncommon with advanced age, certain chronic infections, and malignancies among others. Test methodology: Indirect fluorescence immunoassay (IFA) using HEp-2 cells. Performed By: #### A NAIFS #### [facility] CLIA [id number] [address] [place] [address] [place] C-REACTIVE PROTEINon 024 CRP [Mass/Vol] mg/L Normal 0.00 - 0.90 mg/dL [facility], [facility].; [facility], [facility] Comment on above: Performed By: #### 2 71307 #### [facility],[address] [place] [address] Laboratory - Serology - non- microon 07-15-2024 Nuclear Ab IF (S) [Titer] Negative Normal [facility].; [facility], [facility] T3, FREE [CCL]on 07-13-2024 Free T3 [Mass/Vol] 4.1 pg/mL Normal 2.3-4.1 [facility] Comment on above: Result Comment: [place] [address] Mark Monique III, M.D. [id number] Performed By: #### 2 10904 #### [facility],[address] [place] [address] THYROID PEROXIDASE AB [CCL]o n 07-13-2024 TPO Antibody 159.2 IU/mL High <5.6 [facility] Comment on above: Result Comment: Thyr oid Peroxidase Antibody test is used as an aid in diagnosis of autoimmune thyroid disease. Clinical correlation is required. [place] [address] [place] [address] Mark Monique III, M.D. [id number] Performed By: #### 2 60410 #### [facility],[address] [place] [address] CMP with eGFRon 07-12-2024 AGE 38 years Normal [facility] Comment on above: Performed By: #### 2 77181 #### [facility],[address] [place] [address]89 Albumin [Mass/Vol] 3.7 g/dL Normal 3.4 - 5.0 g/dL [facility], [employer]. Work Phone: Comment on above: Performed By: #### 2 73378 #### [facility],[address] [place] [address] 12085 Albumin/Globulin [Mass ratio] 1.1 {ratio} Normal 0.9 - 1.6 [facility] Comment on above: Performed By: #### 2 45669 #### [facility],[address] [place] [address] 49598 ALK PHOS 74 U/L Normal 46 - 116 [facility] Comment on above: Performed By: #### 2 50589 #### [facility],[address] [place] [address] 14667 ALT [Catalytic activity/Vol] 30 U/L Normal 16 - 63 U/L [employer] [facility].; [employer]. Work Phone: Comment on above: Performed By: #### 2 87091 #### [facility],[address] [place] [address] 03968 Anion gap [Moles/Vol] 14 mmol/L Normal 10 - 2 0 mmol/L [facility].; [facility]. Work Phone: Comment on above: Performed By: #### 2 52466 #### [facility],[address] [place] [address] 59367 AST [Catalytic activity/Vol] 24 U/L Normal 13 - 39 U/L [facility].; [facility]. Work Phone: Comment on above: Performed By: #### 2 30285 #### [facility],[address] [place] [address]15[address] B/C RATIO 14 ratio Normal 0 - 30 [facility] Comment on above: Performed By: #### 2 45400 #### [facility],[address] [place] [address] 99467 Bilirubin [Mass/Vol] 0.3 mg/dL Normal 0.2 - 1 .0 mg/dL [facility].; [facility]. Work Phone: Comment on above: Performed By: #### 2 67427 #### [address] [address] Calcium [Mass/Vol] 8.6 mg/dL Normal 8.5 - 10. 1 mg/dL [facility].; [employer]. Work Phone: Comment on above: Performed By: #### 2 86949 #### [facility],[address] [place] [address]200 Chloride [Moles/Vol] 102 mmol/L Normal 98 - 10 7 mmol/L [facility].; [employer] [facility]. Work Phone: Comment on above: Performed By: #### 2 47780 #### [facility],[address] [place] [address] 52734 CMP with eGFR Normal [facility] Comment on above: Result Comment: COMP REHENSIVE METABOLIC PANEL Performed By: #### 2 10223 #### [facility],[address] [place] [address] 40781 CO2 [Moles/Vol] 25.1 mmol/L Normal 21.0 - 32.0 mmol/L [employer].; [employer], [employer]. Work Phone: Comment on above: Performed By: #### 2 38412 #### [facility],[address] [place] [address] Creatinine [Mass/Vol] 0.80 mg/dL Normal 0.55 - 1.02 mg/dL [employer] [facility], [employer].; [employer], [employer]. Work Phone: Comment on above: Performed By: #### 2 10855 #### [facility],[address] [place] [address]697 GFR/1.73 sq M.predicted among non-blacks MDRD (S/P/Bld) [Vol rate/Area] mL/min/{1.73_m2} Normal 60 - 999 [facility] Comment on above: Performed By: #### 2 84279 #### [facility],[address] [place] [address] 12939 Result Comment: ACCO RDING TO THE NATIONAL KIDNEY DISEASE EDUCATION PROGRAM(NKDE), A NORMAL eGFR IS A VALUE GREATER THAN OR EQUAL TO 60 ML/MIN/1.73 SQ METERS. CHRONIC KIDNEY DISEASE: <60mL/MIN/1.73 SQ METERS KIDNEY FAILURE: <15mL/MIN/1.73 SQ METERS THIS TEST SHOULD ONLY BE USED FOR PATIENTS 18 YEARS OF AGE AND OLDER. Globulin (S) [Mass/Vol] 3.3 g/dL Normal 1.5 - 3.8 g/dL [employer].; [employer], [employer]. Work Phone: Comment on above: Performed By: #### 2 37431 #### [facility],[address] [place] [address] 62369 Glucose [Mass/Vol] 94 mg/dL Normal 74 - 106 mg/dL [email or web address], [employer].; [employer] Work Phone: Comment on above: Performed By: #### 2 47184 #### [address] [address] Potassium [Moles/Vol] 3.9 mmol/L Normal 3.5 - 5.1 mmol/L [facility], [facility].; [facility], [facility]. Work Phone: Comment on above: Performed By: #### 2 27480 #### [address] [address] Protein [Mass/Vol] 7.0 g/dL Normal 6.4 - 8.2 g/dL [facility], [facility].; [facility], [facility]. Work Phone: Comment on above: Performed By: #### 2 50774 #### [address] [address] Sodium [Moles/Vol] 137 mmol/L Normal 136 - 145 mmol/L [facility].; [facility], [facility]. Work Phone: Comment on above: Performed By: #### 2 20388 #### [address] [address] Urea nitrogen [Mass/Vol] 11 mg/dL Normal 7 - 18 mg/dL [facility], [facility].; [facility], [facility]. Work Phone: Comment on above: Performed By: #### 2 09636 #### [address] [address] FERRITINon 07-12-2024 Ferritin [Mass/Vol] 26 ng/mL Normal 8 - 388 ng/mL [facility], [facility].; [facility], [facility] Work Phone: Comment on above: Performed By: #### 2 12422 #### [address] [address] FOLATESon 07-12-2024 FOLATES 57.9 ng/ml Normal 8.6 - 58.9 [facility] Comment on above: Performed By: #### 2 77367 #### [place] [id number] IRON AND TIBCon 07-12-2024 %SATURATION 5 % Normal [facility]; [facility] Work Phone: Comment on above: Performed By: #### 2 58496 #### [facility],[address] [place] [address] 30984 Iron [Mass/Vol] 19 ug/dL Abnormal 50 - 170 ug/dL [facility]; [employer] [facility]. Work Phone: Comment on above: Performed By: #### 2 74825 #### [facility],[address] [place] [address]7960 TIBC 360 ug/dl Normal 250 - 450 [facility] Comment on above: Performed By: #### 2 18354 #### [facility],[address] [place] [address] 16369 UIBC 341 ug/dL Normal 155 - 355 [facility] Comment on above: Performed By: #### 2 30784 #### [facility],[address] [place] [address]39 Laboratory - Chemistry and C hemistry - challengeon 07-12-2024 Albumin [Mass/Vol] 1.1 g/dL Normal 0.9 - 1.6 [facility].; [employer] [facility]. Work Phone: ALP [Catalytic activity/Vol] 74 U/L Normal 46 - 116 U/L [facility].; [employer] [facility]. Work Phone: Comprehensive metabolic 2000 panel CMP with eGFR Normal [facility].; [employer] Work Phone: Folate (RBC) [Mass/Vol] 57.9 ng/mL Normal 8.6 - 58.9 ng/mL [facility].; [facility] Work Phone: GFR/1.73 sq M.predicted among blacks MDRD (S/P/Bld) [Vol rate/Area] mL/min/{1.73_m2} Normal 60 - 999 {ML/MINUTE} [facility].; [facility]. Work Phone: GFR/1.73 sq M.predicted MDRD (S/P/Bld) [Vol rate/Area] mL/min/{1.73_m2} Normal 60 - 999 {ML/MINUTE} [facility].; [facility] Work Phone: Iron binding capacity [Mass/Vol] 360 ug/dL Normal 250 - 450 ug/dL [facility]; [facility] Work Phone: Urea nitrogen/Creatinine [Mass ratio] 14 {ratio} Normal 0 - 30 {ratio} [facility]; [employer]. Work Phone: Laboratory - Drug toxicology on 07-12-2024 Vancomycin peak [Mass/Vol] 341 ug/dL Normal 155 - 355 ug/dL [facility]; [employer] [facility]. Work Phone: No Panel Informationon 07-12 AGE 38 {years} Normal [facility]; [employer] [facility] Work Phone: TPO Antibody 159.2 {IU/mL} Abnormal [facility]; [employer] [facility]. Work Phone: T3Free SerPl-mCncon 07-12-20 24 Free T3 [Mass/Vol] 4.1 pg/mL Normal 2.3 - 4.1 pg/mL [facility] Comment on above: Order Comment: Speci men Type: BLOOD SPECIMEN Ordering Facility: [facility] Address: [address] [place] [address] Performed By: #### M ICRO, 3051-0 #### [facility] CLIA [id number] [address] [place] [address] [place] T4-FREE (FREE THYROXINE)on 0 07-12-2024 Free T4 [Mass/Vol] 0.68 ng/dL Abnormal 0.76 - 1. 46 ng/dL [facility], [employer].; [facility], [facility]. Work Phone: Comment on above: Result Comment: P otential of falsely elevated results when biotin concentrations are > 10 ng/mL. Performed By: #### 2 51981 #### [facility],[address] [place] [address] THYROID PEROXIDASE ANTIBODYo n 07-12-2024 TPO Ab Qn 159.2 [IU]/mL High <5.6 [facility] Comment on above: Order Comment: Speci men Type: BLOOD SPECIMEN Ordering Facility: [facility] Address: [address] [place] [address] Result Comment: Thyr oid Peroxidase Antibody test is used as an aid in diagnosis of autoimmune thyroid disease. Clinical correlation is required. Performed By: #### M ICRO, 3051-0 #### [facility] CLIA [id number] [address] [place] [address] [place] TSHon 07-12-2024 TSH Qn 2.94 m[IU]/L Normal 0.35 - 3.74 {uIU/ml} [facility], [facility].; [facility], [facility] Work Phone: Comment on above: Performed By: #### 2 11139 #### [facility],[address] [place], [place] [id number] VITAMIN B-12on 07-12-2024 Cobalamin (Vitamin B12) [Mass/Vol] 650 pg/mL Normal 193 - 986 pg/mL [facility], [facility].; [facility], [facility] Work Phone: Comment on above: Performed By: #### 2 90173 #### [facility],[address] [place] [address] CBC + DIFFon 07-08-2024 Baso # 0.01 x10EE3/UL Normal 0.00 - 0.10 [facility] Comment on above: Performed By: #### 2 31261 #### [facility],[address] [place] [address] Basophils/100 WBC (Bld) 0.2 % Normal 0.0 - 2.0 % [facility], [facility].; [facility], [facility] Comment on above: Performed By: #### 2 37217 #### [place] [address] CBC + DIFF Normal [facility] Comment on above: Result Comment: CBC- COMPLETE BLOOD COUNT Performed By: #### 2 82418 #### [place] [address] EO # 0.08 x10EE3/UL Normal 0.00 - 0.50 [facility] Comment on above: Performed By: #### 2 59664 #### [address] [address] Eosinophils/100 WBC (Bld) 1.9 % Normal 0.0 - 7.0 % [facility] Comment on above: Performed By: #### 2 62976 #### [place] [address] Erythrocyte distribution width (RBC) [Ratio] 18.0 % Abnormal 12.0 - 15.6 % [facility] Comment on above: Performed By: #### 2 97681 #### [place] [address] Hematocrit (Bld) [Volume fraction] 30.9 % Abnormal 34.0 - 46.0 % [facility] Comment on above: Performed By: #### 2 88621 #### [facility] Luis Pomerene [place] [address] Hemoglobin (Bld) [Mass/Vol] 9.9 g/dL Abnormal 12.0 - 16.0 g/dL [facility]; [facility] Comment on above: Performed By: #### 2 91191 #### [place] [address] Lymph # 1.00 x10EE3/UL Normal 0.80 - 2.80 [facility] Comment on above: Performed By: #### 2 46740 #### [place] [address] Lymphocytes/100 WBC (Bld) 22.4 % Normal 20.0 - 45.0 % [facility]; [facility] Comment on above: Performed By: #### 2 65317 #### [place] [address] MANUAL DIFF N/A Normal [facility]; [facility]. Comment on above: Performed By: #### 2 76748 #### [place] [address] MCH (RBC) [Entitic mass] 24 pg Abnormal 27 - 33 pg [facility]; [facility] Comment on above: Performed By: #### 2 11395 #### [place] [address] MCHC 32 X10 3 Normal 32 - 36 [facility] Comment on above: Performed By: #### 2 76926 #### [place] [address] MCV (RBC) [Entitic vol] 76 fL Abnormal 80 - 99 fL H [facility]; [facility] Comment on above: Performed By: #### 2 08437 #### [place] [address] [place] # 0.34 x10EE3/UL Normal 0.20 - 1.00 [facility] Comment on above: Performed By: #### 2 87612 #### [address] [address] MONOS % 7.7 % Normal 0.0 - 10.0 [facility] Comment on above: Performed By: #### 2 83836 #### [place] [address] Morphology Garcia (Bld) [Interp] N/A Normal [facility].; [facility], [facility]. Comment on above: Performed By: #### 2 00782 #### [place] [address] Neut # 3.01 x10EE3/UL Normal 1.50 - 7.10 [facility] Comment on above: Performed By: #### 2 68514 #### [place] [address] Neutrophils/100 WBC (Bld) 67.8 % Normal 46.0 - 76.0 % [facility].; [facility], [facility]. Comment on above: Performed By: #### 2 65202 #### [place] [id number] PLATELET 434 x10EE3/UL Normal 150 - 450 [facility] Comment on above: Performed By: #### 2 26678 #### [place] [address] Platelet mean volume (Bld) [Entitic vol] 7.0 fL Normal 6.6 - 10.5 fL [facility].; [facility], [facility]. Comment on above: Result Comment: AUTO MATED DIFFERENTIAL Performed By: #### 2 48346 #### [place] [address] RBC 4.08 x 10EE6/UL Low 4.10 - 5.30 [facility] Comment on above: Performed By: #### 2 33272 #### [facility],[address] [place] [address] WBC 4.4 x 10EE3/UL Low 4.5 - 10.8 [facility] Comment on above: Performed By: #### 2 58163 #### [facility],[address] [place], [place] [id number] Laboratory - Hematology and Cell countson 07-08-2024 Basophils (Bld) [#/Vol] 0.01 {3/UL} Normal 0.00 - 0.10 {3/UL} [employer] CBC W Auto Differential panel (Bld) CBC + DIFF Normal [employer] Eosinophils (Bld) [#/Vol] 0.08 {3/UL} Normal 0.00 - 0.50 {3/UL} [employer] Lymphocytes (Bld) [#/Vol] 1.00 {3/UL} Normal 0.80 - 2.80 {3/UL} [employer] MCHC (RBC) [Mass/Vol] 32 {X10_3} Normal 32 - 3 6 {X10_3} [employer] Monocytes (Bld) [#/Vol] 0.34 {3/UL} Normal 0.20 - 1.00 {3/UL} [employer] Monocytes/100 WBC (Bld) 7.7 % Normal 0.0 - 10.0 % [employer] Neutrophils (Bld) [#/Vol] 3.01 {3/UL} Normal 1.50 - 7.10 {3/UL} [employer] Platelets (Bld) [#/Vol] 434 {3/UL} Normal 150 - 450 {3/UL} [employer] RBC (Bld) [#/Vol] 4.08 {6/UL} Abnormal 4.10 - 5.3 0 {6/UL} [facility], [facility].; [facility] WBC (Bld) [#/Vol] 4.4 {3/UL} Abnormal 4.5 - 10.8 {3/UL} [facility] CBC + DIFFon 06-24-2024 Baso # 0.03 x10EE3/UL Normal 0.00 - 0.10 [facility] Comment on above: Performed By: #### 2 43502 #### [place] [address] Basophils/100 WBC (Bld) 0.3 % Normal 0.0 - 2.0 % [facility], [facility].; [email or web address] Comment on above: Performed By: #### 2 46675 #### [place] [address] CBC + DIFF Normal [facility] Comment on above: Result Comment: CBC- COMPLETE BLOOD COUNT Performed By: #### 2 [id number] #### [place] [address] EO # 0.15 x10EE3/UL Normal 0.00 - 0.50 [facility] Comment on above: Performed By: #### 2 83521 #### [place] [address] Eosinophils/100 WBC (Bld) 1.4 % Normal 0.0 - 7.0 % [facility], [facility].; [email or web address] Comment on above: Performed By: #### 2 14180 #### [place] [address] Erythrocyte distribution width (RBC) [Ratio] 15.8 % Abnormal 12.0 - 15.6 % [employer] [facility], [facility].; [email or web address], [employer]. Comment on above: Performed By: #### 2 27382 #### [address] [address] Hematocrit (Bld) [Volume fraction] 32.7 % Abnormal 34.0 - 46.0 % [facility], [facility]. Comment on above: Performed By: #### 2 75664 #### [place] [address] Hemoglobin (Bld) [Mass/Vol] 10.5 g/dL Abnormal 12.0 - 16.0 g/dL [facility].; [facility], [facility]. Comment on above: Performed By: #### 2 27070 #### [place] [address] Lymph # 3.93 x10EE3/UL High 0.80 - 2.80 [facility] Comment on above: Performed By: #### 2 18935 #### [place] [address] Lymphocytes/100 WBC (Bld) 35.2 % Normal 20.0 - 45.0 % [facility].; [facility], [facility]. Comment on above: Performed By: #### 2 60721 #### [place] [address] MANUAL DIFF N/A Normal [facility]; [facility], [facility] Comment on above: Performed By: #### 2 29307 #### [place] [address] MCH (RBC) [Entitic mass] 24 pg Abnormal 27 - 33 pg [facility].; [facility], [facility]. Comment on above: Performed By: #### 2 32885 #### [place] [address] MCHC 32 X10 3 Normal 32 - 36 [facility] Comment on above: Performed By: #### 2 17388 #### [place] [address] MCV (RBC) [Entitic vol] 75 fL Abnormal 80 - 99 fL H [facility].; [facility], [facility]. Comment on above: Performed By: #### 2 36476 #### [facility],[address] [place] [address] [place] # 0.90 x10EE3/UL Normal 0.20 - 1.00 [facility] Comment on above: Performed By: #### 2 18312 #### [facility],[address] [place] [address] MONOS % 8.0 % Normal 0.0 - 10.0 [facility] Comment on above: Performed By: #### 2 94789 #### [place] [address] Morphology Garcia (Bld) [Interp] N/A Normal [facility].; [facility], [facility]. Comment on above: Performed By: #### 2 16914 #### [facility],[address] [place] [address] Neut # 6.16 x10EE3/UL Normal 1.50 - 7.10 [facility] Comment on above: Performed By: #### 2 80631 #### [place] [address] Neutrophils/100 WBC (Bld) 55.2 % Normal 46.0 - 76.0 % [facility].; [facility], [facility]. Comment on above: Performed By: #### 2 76832 #### [place] [address] PLATELET 630 x10EE3/UL High 150 - 450 [facility] Comment on above: Performed By: #### 2 83310 #### [facility],[address] [place] [address] Platelet mean volume (Bld) [Entitic vol] 6.9 fL Normal 6.6 - 10.5 fL [facility].; [facility] Comment on above: Result Comment: AUTO MATED DIFFERENTIAL Performed By: #### 2 33320 #### [facility],[address] [place] [address] RBC 4.37 x 10EE6/UL Normal 4.10 - 5.30 [facility] Comment on above: Performed By: #### 2 01090 #### [facility],[address] [place] [address] WBC 11.2 x 10EE3/UL High 4.5 - 10.8 [facility] Comment on above: Performed By: #### 2 53825 #### [facility],[address] [place] [address] Laboratory - Hematology and Cell countson 06-24-2024 Basophils (Bld) [#/Vol] 0.03 {3/UL} Normal 0.00 - 0.10 {3/UL} [employer] CBC W Auto Differential panel (Bld) CBC + DIFF Normal [employer] Eosinophils (Bld) [#/Vol] 0.15 {3/UL} Normal 0.00 - 0.50 {3/UL} [employer] Lymphocytes (Bld) [#/Vol] 3.93 {3/UL} Abnormal 0.80 - 2.80 {3/UL} [employer] MCHC (RBC) [Mass/Vol] 32 {X10_3} Normal 32 - 3 6 {X10_3} [employer], [employer]. Monocytes (Bld) [#/Vol] 0.90 {3/UL} Normal 0.20 - 1.00 {3/UL} [employer] Monocytes/100 WBC (Bld) 8.0 % Normal 0.0 - 10.0 % [employer], [employer] Neutrophils (Bld) [#/Vol] 6.16 {3/UL} Normal 1.50 - 7.10 {3/UL} [employer] [facility], [facility].; [employer] [facility], [facility]. Platelets (Bld) [#/Vol] 630 {3/UL} Abnormal 150 - 450 {3/UL} [employer] [facility], [facility].; [employer] RBC (Bld) [#/Vol] 4.37 {6/UL} Normal 4.10 - 5.3 0 {6/UL} [email or web address] WBC (Bld) [#/Vol] 11.2 {3/UL} Abnormal 4.5 - 10.8 {3/UL} [email or web address], [facility].; [email or web address], [employer]. C-REACTIVE PROTEINon 024 CRP [Mass/Vol] 49.4 mg/L High <8.0 [facility] Comment on above: Performed By: #### 9 , 60, 4477, 8593 #### [facility] [address], [address] [place] [address] Rubber Grinder: Román Trinidad MD CBC (INCLUDES DIFF/PLT)on Basophils (Bld) [#/Vol] 0.029 10*3/uL Normal 0-200 [facility] Comment on above: Performed By: #### 9 , 22, 4420, 8593 #### [facility] [address], [address] [place] [address] Rubber Grinder: Román Trinidad MD Basophils/100 WBC (Bld) 0.5 % Normal [facility] Comment on above: Performed By: #### 9 , 52, 9720, 8593 #### [facility] [address], [address] [place] [address] Rubber Grinder: Román Trinidad MD Eosinophils (Bld) [#/Vol] 0.057 10*3/uL Normal 15-500 [facility] Comment on above: Performed By: #### 9 , 68, 5820, 8593 #### [facility] [address], [address] [place] [address] Rubber Grinder: Román Trinidad MD Eosinophils/100 WBC (Bld) 1.0 % Normal [facility] Comment on above: Performed By: #### 9 , 6398, 44, 85 #### [facility] [place] [address] Rubber Grinder: Román Trinidad MD Erythrocyte distribution width (RBC) [Ratio] 13.3 % Normal 11.0-15.0 [facility] Comment on above: Performed By: #### 9 , 6398, 44, 8593 #### [facility] [place] [address] Rubber Grinder: Román Trinidad MD Hematocrit (Bld) [Volume fraction] 29.4 % Low 35.0-45.0 [facility] Comment on above: Performed By: #### 07 15, 6398, 44, 85 #### [facility] [place] [address] Rubber Grinder: Román Trinidad MD Hemoglobin (Bld) [Mass/Vol] 8.6 g/dL Low 11.7-15.5 [facility] Comment on above: Performed By: #### 9 , 6398, 44, 8593 #### [facility] [place] [address] Rubber Grinder: Román Trinidad MD Lymphocytes (Bld) [#/Vol] 0.866 10*3/uL Normal 850-3900 [facility] Comment on above: Performed By: #### 9 , 6398, 44, 8593 #### [facility] [place] [address] Rubber Grinder: Román Trinidad MD Lymphocytes/100 WBC (Bld) 15.2 % Normal [facility] Comment on above: Performed By: #### 9 , 63, 44, 8593 #### [facility] [place] [address] Rubber Grinder: Román Trinidad MD MCH (RBC) [Entitic mass] 23.5 pg Low 27.0-33.0 [facility] Comment on above: Performed By: #### 9 , 63, 44, 8593 #### [facility] [place] [address] Rubber Grinder: Román Trinidad MD MCHC (RBC) [Mass/Vol] 29.3 g/dL Low 32.0-36.[address] [facility] Comment on above: Performed By: #### 9 , 6398, 44, 8593 #### [facility] [place] [address] Rubber Grinder: Román Trinidad MD MCV (RBC) [Entitic vol] 80.3 fL Normal 80.0-100.0 [facility] Comment on above: Performed By: #### 9 , 6398, 44, 8593 #### [facility] [place] [address] Rubber Grinder: Román Trinidad MD Monocytes (Bld) [#/Vol] 0.251 10*3/uL Normal 200-950 [facility] Comment on above: Performed By: #### 9 , 6398, 44, 8593 #### [facility] [place] [address] Rubber Grinder: Román Trinidad MD Monocytes/100 WBC (Bld) 4.4 % Normal [facility] Comment on above: Performed By: #### 9 , 6398, 44, 8593 #### [facility] [place] [address] Rubber Grinder: Román Trinidad MD Neutrophils (Bld) [#/Vol] 4.497 10*3/uL Normal 8646-5298 [facility] Comment on above: Performed By: #### 9 , 63, 44, 8593 #### [facility] [place] [address] Rubber Grinder: Román Trinidad MD Neutrophils/100 WBC (Bld) 78.9 % Normal [facility] Comment on above: Performed By: #### 9 , 63, 4420, 8593 #### [facility] [place] [address] Rubber Grinder: Román Trinidad MD Platelet mean volume (Bld) [Entitic vol] 9.1 fL Normal 7.5-12.5 [facility] Comment on above: Performed By: #### 9 , 6398, 44, 8593 #### [facility] [place] [address] Rubber Grinder: Román Trinidad MD Platelets (Bld) [#/Vol] 643 10*3/uL High 140-400 [facility] Comment on above: Performed By: #### 9 , 6398, 44, 8593 #### [facility] [place] [address] Rubber Grinder: Román Trinidad MD RBC (Bld) [#/Vol] 3.66 10*6/uL Low 3.80-5.10 [facility] Comment on above: Performed By: #### 9 , 6398, 44, 8593 #### [facility] [place] [address] Rubber Grinder: Román Trinidad MD WBC (Bld) [#/Vol] 5.7 10*3/uL Normal 3.8-10.8 [facility] Comment on above: Performed By: #### 9 , 63, 4420, 8593 #### [facility] [place] [address] Rubber Grinder: Román Trinidad MD LYME AB SCREENon 06-22-2024 LYME AB SCREEN 9.73 index [facility] Comment on above: Result Comment: Inde x Interpretation ----- < 0.90 Negative 0.90-1.09 Equivocal > 1.09 Positive As recommended by the Food and Drug Administration (FDA), all samples with positive or equivocal results in a Borrelia burgdorferi antibody screen will be tested using a blot method. Positive or equivocal screening test results should not be interpreted as truly positive until verified as such using a supplemental assay (e.g., B. burgdorferi blot). The screening test and/or blot for B. burgdorferi antibodies may be falsely negative in early stages of Lyme disease, including the period when erythema migrans is apparent. Performed By: #### 9 27, 6399, 4420, 8593 #### [facility] [address], [address] [place] [address] Rubber Grinder: Román Trinidad MD LYME DISEASE ANTIBODIES (IGG ,IGM), IMMUNOBLOTon 06-22-2024 18 KD (IGG) BAND Non-Reactive Normal [facility] Comment on above: Performed By: #### 9 27, 6399, 4420, 8593 #### [facility] [address], [address] [place] [address] Rubber Grinder: Román Trinidad MD 23 KD (IGG) BAND Reactive Abnormal [facility] Comment on above: Performed By: #### 9 27, 6399, 4420, 8593 #### [facility] [address], [address] [place] [address] Rubber Grinder: Román Trinidad MD 23 KD (IGM) BAND Reactive Abnormal [facility] Comment on above: Performed By: #### 9 27, 6399, 4420, 8593 #### [facility] [place] [address] Rubber Grinder: Román Trinidad MD 28 KD (IGG) BAND Non-Reactive Normal [facility] Comment on above: Performed By: #### 9 27, 6399, 4420, 8593 #### [facility] [place] [address] Rubber Grinder: Román Trinidad MD 30 KD (IGG) BAND Non-Reactive Normal [facility] Comment on above: Performed By: #### 9 27, 6399, 4420, 8593 #### [facility] [place] [address] Rubber Grinder: Román Trinidad MD 39 KD (IGG) BAND Reactive Abnormal [facility] Comment on above: Performed By: #### 9 27, 6399, 4420, 8593 #### [facility] [address], [address] [place] [address] Rubber Grinder: Román Trinidad MD 39 KD (IGM) BAND Reactive Abnormal [facility] Comment on above: Performed By: #### 9 27, 6399, 4420, 8593 #### [facility] [address], [address] [place] [address] Rubber Grinder: Román Trinidad MD 41 KD (IGG) BAND Reactive Abnormal [facility] Comment on above: Performed By: #### 9 27, 63, 4420, 8593 #### [facility] [address], [address] [place] [address] Rubber Grinder: Román Trinidad MD 41 KD (IGM) BAND Reactive Abnormal [facility] Comment on above: Result Comment: Lyme immunoblot testing should only be performed on samples from patients who have had a Positive or Equivocal result in a screening assay. As per CDC criteria, a Lyme disease IgG Immunoblot must show reactivity to at least 5 of 10 specific borrelial proteins to be considered positive; similarly, a positive Lyme disease IgM immunoblot requires reactivity to 2 of 3 specific borrelial proteins. Although considered negative, IgG reactivity to fewer specific borrelial proteins or IgM reactivity to only 1 protein may indicate recent B. burgdorferi infection and warrant testing of a later sample. A positive IgM but negative IgG result obtained more than a month after onset of symptoms likely represents a false- positive IgM result rather than acute Lyme disease. In rare instances, Lyme disease immunoblot reactivity may represent antibodies induced by exposure to other spirochetes. Performed By: #### 9 27, 63, 4420, 8593 #### [facility] [address], [address] [place] [address] Rubber Grinder: Román Trinidad MD 45 KD (IGG) BAND Non-Reactive Normal [facility] Comment on above: Performed By: #### 9 27, 6399, 4420, 8593 #### [facility] [address], [address] [place] [address] Rubber Grinder: Román Trinidad MD 58 KD (IGG) BAND Reactive Abnormal [facility] Comment on above: Performed By: #### 9 27, 6399, 4420, 8593 #### [facility] [place] [address] Rubber Grinder: Román Trinidad MD 66 KD (IGG) BAND Non-Reactive Normal [facility] Comment on above: Performed By: #### 9 27, 6399, 4420, 8593 #### [facility] [place] [address] Rubber Grinder: Román Trinidad MD 93 KD (IGG) BAND Reactive Abnormal [facility] Comment on above: Performed By: #### 9 27, 6399, 4420, 8593 #### [facility] [place] [address] Rubber Grinder: Román Trinidad MD LYME DISEASE AB(IGG),BLOT Positive Abnormal NEGATIVE [facility] Comment on above: Performed By: #### 9 27, 6399, 4420, 8593 #### [facility] [place] [address] Rubber Grinder: Román Trinidad MD LYME DISEASE AB(IGM),BLOT Positive Abnormal NEGATIVE [facility] Comment on above: Performed By: #### 9 27, 6399, 4420, 8593 #### [facility] [place] [address] Rubber Grinder: Román Trinidad MD VITAMIN B12on 06-22-2024 Cobalamin (Vitamin B12) [Mass/Vol] 1037 pg/mL Normal 200-1100 [facility] Comment on above: Performed By: #### 9 27, 6399, 4420, 8593 #### [facility] [place] [address] Rubber Grinder: Román Trinidad MD Laboratory - Chemistry and C hemistry - challengeon 06-17-2024 Cobalamin (Vitamin B12) [Mass/Vol] 1037 pg/mL Normal 200 - 1100 pg/mL [facility]; [facility] CRP [Mass/Vol] 49.4 mg/L Abnormal [facility], [facility] Laboratory - Hematology and Cell countson 06-17-2024 Basophils (Bld) [#/Vol] 0.029 10*3/uL Normal 0 - 200 {cells/uL} [facility]; [facility], [facility] Basophils/100 WBC (Bld) 0.5 % Normal [facility]; [facility], [facility] Eosinophils (Bld) [#/Vol] 0.057 10*3/uL Normal 15 - 500 {cells/uL} [facility]; [facility], [facility] Eosinophils/100 WBC (Bld) 1.0 % Normal [facility]; [facility], [facility] Erythrocyte distribution width (RBC) [Ratio] 13.3 % Normal 11.0 - 15.0 % [facility]; [facility], [facility] Hematocrit (Bld) [Volume fraction] 29.4 % Abnormal 35.0 - 45.0 % [facility]; [facility], [facility] Hemoglobin (Bld) [Mass/Vol] 8.6 g/dL Abnormal 11.7 - 15.5 g/dL [facility]; [facility], [facility] Lymphocytes (Bld) [#/Vol] 0.866 10*3/uL Normal 850 - 3900 {cells/uL} [facility]; [facility], [facility] Lymphocytes/100 WBC (Bld) 15.2 % Normal [facility]; [facility], [facility] MCH (RBC) [Entitic mass] 23.5 pg Abnormal 27.0 - 33.0 pg [facility].; [facility], [facility] MCHC (RBC) [Mass/Vol] 29.3 g/dL Abnormal 32.0 - 36.0 g/dL [facility].; [facility], [facility] MCV (RBC) [Entitic vol] 80.3 fL Normal 80.0 - 100.0 fL [facility]; [employer], [facility]. Monocytes (Bld) [#/Vol] 0.251 10*3/uL Normal 200 - 950 {cells/uL} [facility], [facility].; [employer] Monocytes/100 WBC (Bld) 4.4 % Normal [facility].; [facility], [facility]. Neutrophils (Bld) [#/Vol] 4.497 10*3/uL Normal 1500 - 7800 {cells/uL} [facility] [employer], [facility].; [employer] Neutrophils/100 WBC (Bld) 78.9 % Normal [facility].; [employer], [employer]. Platelet mean volume (Bld) [Entitic vol] 9.1 fL Normal 7.5 - 12.5 fL [facility], [facility].; [employer] Platelets (Bld) [#/Vol] 643 10*3/uL Abnormal 140 - 400 [facility].; [employer] RBC (Bld) [#/Vol] 3.66 10*6/uL Abnormal 3.80 - 5.1 0 {Million/uL} [facility].; [employer], [employer]. WBC (Bld) [#/Vol] 5.7 10*3/uL Normal 3.8 - 10.8 [facility].; [employer], [employer]. No Panel Informationon 06-17 18 KD (IGG) BAND Non-Reactive Normal [facility].; [employer] 23 KD (IGG) BAND Reactive [facility]normal [facility].; [employer] 23 KD (IGM) BAND Reactive Abnormal [facility], [facility].; [employer] 28 KD (IGG) BAND Non-Reactive Normal [facility] [employer] [facility].; [employer] 30 KD (IGG) BAND Non-Reactive Normal [facility] [employer], [facility].; [employer] 39 KD (IGG) BAND Reactive Abnormal [facility], [facility].; [employer] 39 KD (IGM) BAND Reactive Abnormal [facility], [facility].; [employer]. 41 KD (IGG) BAND Reactive Abnormal [facility] [employer]. 41 KD (IGM) BAND Reactive Abnormal [facility] [address] [employer]. 45 KD (IGG) BAND Non-Reactive Normal [employer].; [employer]. 58 KD (IGG) BAND Reactive Abnormal [facility] [employer].; [employer]. 66 KD (IGG) BAND Non-Reactive Normal [employer]. 93 KD (IGG) BAND Reactive Abnormal [facility] [employer].; [employer]. LYME AB SCREEN 9.73 {index} Abnormal [facility] [employer].; [employer]. Work Phone: LYME DISEASE AB(IGG),BLOT Positive Abnormal [employer].; [employer]. LYME DISEASE AB(IGM),BLOT Positive Abnormal [employer].; [employer]. Laboratory - Chemistry and C hemistry - challengeon 09-19-2022 Albumin [Mass/Vol] 3.9 g/dL Normal 3.4 - 5.0 g/dL [employer]. Albumin [Mass/Vol] 1.0 g/dL Normal 0.9 - 1.6 [employer].; [employer]. ALP [Catalytic activity/Vol] 77 U/L Normal 46 - 116 U/L [employer].; [employer]. ALT [Catalytic activity/Vol] 13 U/L Abnormal 14 - 59 U/L [employer].; [employer]. Anion gap [Moles/Vol] 15 mmol/L Normal 10 - 2 0 mmol/L [employer].; [employer]. AST [Catalytic activity/Vol] 19 U/L Normal 13 - 39 U/L [employer].; [employer]. Bilirubin [Mass/Vol] 0.4 mg/dL Normal 0.2 - 1 .0 mg/dL [employer].; [employer]. Calcium [Mass/Vol] 8.9 mg/dL Normal 8.5 - 10. 1 mg/dL [facility], [facility].; [facility], [facility]. Chloride [Moles/Vol] 103 mmol/L Normal 98 - 10 7 mmol/L [facility].; [facility], [facility]. CO2 [Moles/Vol] 25.8 mmol/L Normal 21.0 - 32.0 mmol/L [facility].; [facility], [facility]. Comprehensive metabolic 2000 panel CMP with eGFR Normal [facility].; [facility], [facility] Creatinine [Mass/Vol] 0.67 mg/dL Normal 0.55 - 1.02 mg/dL [facility].; [facility], [facility]. CRP [Mass/Vol] mg/L Normal 0.00 - 0.90 mg/dL [facility], [facility].; [facility], [facility]. GFR/1.73 sq M.predicted among blacks MDRD (S/P/Bld) [Vol rate/Area] mL/min/{1.73_m2} Normal 60 - 999 {ML/MINUTE} [facility], [facility].; [facility], [facility]. GFR/1.73 sq M.predicted MDRD (S/P/Bld) [Vol rate/Area] mL/min/{1.73_m2} Normal 60 - 999 {ML/MINUTE} [facility], [facility].; [facility], [facility]. Globulin (S) [Mass/Vol] 3.8 g/dL Normal 1.5 - 3.8 g/dL [facility], [facility].; [facility], [facility]. Glucose [Mass/Vol] 93 mg/dL Normal 74 - 106 mg/dL [facility], [facility].; [facility], [facility]. Potassium [Moles/Vol] 3.6 mmol/L Normal 3.5 - 5.1 mmol/L [facility], [facility].; [facility], [facility]. Protein [Mass/Vol] 7.7 g/dL Normal 6.4 - 8.2 g/dL [facility], [facility].; [facility], [facility]. Sodium [Moles/Vol] 140 mmol/L Normal 136 - 145 mmol/L [facility].; [facility] Urea nitrogen (U) [Mass/Vol] 38 pg/mL Normal 0 - 125 pg/mL [facility]; [facility], [facility] Urea nitrogen [Mass/Vol] 11 mg/dL Normal 7 - 18 mg/dL [facility]; [facility], [facility] Urea nitrogen/Creatinine [Mass ratio] 16 {ratio} Normal 0 - 30 {ratio} [facility].; [facility] Laboratory - Hematology and Cell countson 09-19-2022 Basophils (Bld) [#/Vol] 0.00 {3/UL} Normal 0.00 - 0.10 {3/UL} [facility]; [facility] Basophils/100 WBC (Bld) 0.4 % Normal 0.0 - 2.0 % [facility]; [facility] [facility] CBC W Auto Differential panel (Bld) CBC + DIFF Normal [facility]; [facility] Eosinophils (Bld) [#/Vol] 0.00 {3/UL} Normal 0.00 - 0.50 {3/UL} [facility].; [facility] Eosinophils/100 WBC (Bld) 0.5 % Normal 0.0 - 7.0 % [facility]; [facility], [facility] Erythrocyte distribution width (RBC) [Ratio] 13.8 % Normal 12.0 - 15.6 % [facility].; [facility] Hematocrit (Bld) [Volume fraction] 36.3 % Normal 34.0 - 46.0 % [facility]; [facility], [facility] Hemoglobin (Bld) [Mass/Vol] 12.2 g/dL Normal 12.0 - 16.0 g/dL [facility].; [facility], [facility] Lymphocytes (Bld) [#/Vol] 1.30 {3/UL} Normal 0.80 - 2.80 {3/UL} [facility].; [facility], [facility] Lymphocytes/100 WBC (Bld) 15.3 % Abnormal 20.0 - 45.0 % [facility] [employer] [facility].; [employer]. MCH (RBC) [Entitic mass] 28 pg Normal 27 - 33 pg [facility] [employer] [facility].; [place] [employer] MCHC (RBC) [Mass/Vol] 34 {X10_3} Normal 32 - 3 6 {X10_3} [facility], [facility] [place] [employer] MCV (RBC) [Entitic vol] 84 fL Normal 80 - 99 fL H [facility].; [place] [employer], [facility]. Monocytes (Bld) [#/Vol] 0.60 {3/UL} Normal 0.20 - 1.00 {3/UL} [facility] [employer], [facility].; [place] [employer]. Monocytes/100 WBC (Bld) 7.4 % Normal 0.0 - 10.0 % [facility] [employer], [facility].; [employer]. Morphology Garcia (Bld) [Interp] N/A Normal [place] [employer] [facility].; [employer]. Neutrophils (Bld) [#/Vol] 6.40 {3/UL} Normal 1.50 - 7.10 {3/UL} [place] [employer]. Neutrophils/100 WBC (Bld) 76.4 % Abnormal 46.0 - 76.0 % [place] [employer], [facility].; [employer] Platelet mean volume (Bld) [Entitic vol] 8.2 fL Normal 6.6 - 10.5 fL [facility] [employer], [facility].; [email or web address] Platelets (Bld) [#/Vol] 372 {3/UL} Normal 150 - 450 {3/UL} [employer] [place] [email or web address] RBC (Bld) [#/Vol] 4.30 {6/UL} Normal 4.10 - 5.3 0 {6/UL} [email or web address] WBC (Bld) [#/Vol] 8.4 {3/UL} Normal 4.5 - 10.8 {3/UL} [email or web address], [email or web address]. No Panel Informationon 09-19 AGE 36 {years} Normal [facility], [facility].; [facility] MANUAL DIFF N/A Normal [facility].; [facility] .GFRon 07-16-2021 GFR 97 ml/min/1.73sqm Normal [facility] ([place]) Comment on above: Result Comment: GFR Population mean for , Non- Americans Ages 20-29 = 116 mL/min/1.73 sq.m. Ages 30-39 = 107 mL/min/1.73 sq.m. Ages 40-49 = 99 mL/min/1.73 sq.m. Ages 50-59 = 93 mL/min/1.73 sq.m. Ages 60-69 = 85 mL/min/1.73 sq.m. Ages 70+ = 75 mL/min/1.73 sq.m. Chronic Kidney Disease: Less than 60 mL/min/1.73 square meters End Stage Renal Disease: Less than 15 mL/min/1.73 square meters Performed By: #### T SH, FT4, FT3, VIDH, CMP #### [address] [address] #### GFR #### [place] [address] GFR Non- 80 ml/min/1.73sqm Normal [facility] ([place]) Comment on above: Result Comment: GFR Population mean for , Non- Americans Ages 20-29 = 116 mL/min/1.73 sq.m. Ages 30-39 = 107 mL/min/1.73 sq.m. Ages 40-49 = 99 mL/min/1.73 sq.m. Ages 50-59 = 93 mL/min/1.73 sq.m. Ages 60-69 = 85 mL/min/1.73 sq.m. Ages 70+ = 75 mL/min/1.73 sq.m. Chronic Kidney Disease: Less than 60 mL/min/1.73 square meters End Stage Renal Disease: Less than 15 mL/min/1.73 square meters Performed By: #### T SH, FT4, FT3, VIDH, CMP #### [address] [address] #### GFR #### [address] [address] CMP 07-16-2021 Albumin Level 4.1 G/dL Normal 3.5-5.0 Count includes the [facility] ([place]) Comment on above: Performed By: #### T SH, FT4, FT3, VIDH, CMP #### [place] [address] #### GFR #### [address] [address] Albumin/Globulin [Mass ratio] 1.1 {ratio} Normal 1.1-2.5 [facility] ([place]) Comment on above: Performed By: #### T SH, FT4, FT3, VIDH, CMP #### [place] [address] #### GFR #### [place] [address] ALP [Catalytic activity/Vol] 90 U/L Normal 40-135 [facility] ([place]) Comment on above: Performed By: #### T SH, FT4, FT3, VIDH, CMP #### [place] [address] #### GFR #### [address] [address] ALT [Catalytic activity/Vol] 26 U/L Normal 14-59 [facility] ([place]) Comment on above: Performed By: #### T SH, FT4, FT3, VIDH, CMP #### [address] [address] #### GFR #### [address] [address] AST [Catalytic activity/Vol] 14 U/L Normal 10-40 [facility] ([place]) Comment on above: Performed By: #### T SH, FT4, FT3, VIDH, CMP #### [place] [address] #### GFR #### [address] [address] Bili Total 0.4 mg/dL Normal 0.2-1.0 [facility] ([place]) Comment on above: Result Comment: Use of this assay is not recommended for patients undergoing treatment with eltrombopag due to the potential for falsely elevated results. Performed By: #### T SH, FT4, FT3, VIDH, CMP #### [address] [address] #### GFR #### [address] [address] BUN/Creatinine Ratio 11 ratio Normal 7-27 [facility] ([place]) Comment on above: Performed By: #### T SH, FT4, FT3, VIDH, CMP #### [address] [address] #### GFR #### [address] [address] Calcium [Mass/Vol] 9.4 mg/dL Normal 8.4-10.2 [facility], 1928[facility] ([place]) Comment on above: Performed By: #### T SH, FT4, FT3, VIDH, CMP #### [place] [address] #### GFR #### [address] [address] Chloride [Moles/Vol] 103 mmol/L Normal 98-107 [facility] ([place]) Comment on above: Performed By: #### T SH, FT4, FT3, VIDH, CMP #### [address] [address] #### GFR #### [address] [address] CO2 [Moles/Vol] 30 mmol/L High 22-29 [facility] ([place]) Comment on above: Performed By: #### T SH, FT4, FT3, VIDH, CMP #### [place] [address] #### GFR #### [address] [address] Creatinine [Mass/Vol] 0.81 mg/dL Normal 0.55-1.02 [facility] ([place]) Comment on above: Performed By: #### T SH, FT4, FT3, VIDH, CMP #### [address] [address] #### GFR #### [address] [address] Electrolyte Balance 10.0 mEq/L Normal [facility] ([place]) Comment on above: Performed By: #### T SH, FT4, FT3, VIDH, CMP #### [address] [address] #### GFR #### [address] [address] Globulin 3.7 G/dL Normal [facility] ([place]) Comment on above: Performed By: #### T SH, FT4, FT3, VIDH, CMP #### [address] [address] #### GFR #### [address] [address] Glucose [Mass/Vol] 89 mg/dL Normal 70-105 [facility] ([place]) Comment on above: Performed By: #### T SH, FT4, FT3, VIDH, CMP #### [address] [address] #### GFR #### [address] [address] Potassium [Moles/Vol] 4.0 mmol/L Normal 3.5-5.1 [facility] ([place]) Comment on above: Performed By: #### T SH, FT4, FT3, VIDH, CMP #### [address] [address] #### GFR #### [address] [address] Sodium [Moles/Vol] 143 mmol/L Normal 136-145 [facility] ([place]) Comment on above: Performed By: #### T SH, FT4, FT3, VIDH, CMP #### [place] [address] #### GFR #### [place] [address] Total Protein 7.8 G/dL Normal 6.4-8.2 Count includes the [facility] ([place]) Comment on above: Performed By: #### T SH, FT4, FT3, VIDH, CMP #### [place] [address] #### GFR #### [place] [address] Urea nitrogen [Mass/Vol] 9 mg/dL Normal 7-18 [facility] ([place]) Comment on above: Performed By: #### T SH, FT4, FT3, VIDH, CMP #### [place] [address] #### GFR #### [place] [address] FT3on 07-16-2021 Free T3 [Mass/Vol] 4.23 pg/mL High 2.30-4.00 [facility] ([place]) Comment on above: Performed By: #### T SH, FT4, FT3, VIDH, CMP #### [place] [address] #### GFR #### [place] [address] FT4on 07-16-2021 Free T4 [Mass/Vol] 0.77 ng/dL Normal 0.76-1.46 [facility] ([place]) Comment on above: Performed By: #### T SH, FT4, FT3, VIDH, CMP #### [place] [address] #### GFR #### [place] [address] TSHon 07-16-2021 TSH Qn 3.82 m[IU]/L High 0.36-3.74 [facility] ([place]) Comment on above: Performed By: #### T SH, FT4, FT3, VIDH, CMP #### [address] [address] #### GFR #### [address] [address] VIDHon 07-16-2021 Vit. D 25-Hydroxy 31.8 ng/mL Normal [facility] ([place]) Comment on above: Result Comment: Inte rpretive Values Based on Total 25(OH) Vitamin D: Deficient <20 ng/mL Insufficient 20 - <30 ng/mL Sufficient 30-100 ng/mL Performed By: #### T SH, FT4, FT3, VIDH, CMP #### [address] [address] #### GFR #### [address] [address] Free T3on 03-09-2019 T3 free mass conc 5.2 pg/mL High 2.3-4.1 [facility] Comment on above: Performed By: #### F REET3 #### [facility] Routine Lab [address] [place] [address] Free T3on 10-16-2018 T3 free mass conc 5.5 pg/mL High 2.3-4.1 [facility] Comment on above: Performed By: #### F REET3 #### [facility] Routine Lab [address] [place] [address] Laboratory - Chemistry and C hemistry - challengeon 05-31-2018 Bilirubin Ql (U) Negative Normal [facility] [employer] [facility]. Ketones Ql (U) Negative Normal [facility].; [employer] [facility] pH (U) 5.5 [pH] Normal [facility], [facility].; [email or web address] Specific gravity (U) [Rel density] <=1.005 Normal [facility], [facility].; [email or web address] Urobilinogen Qn (U) 0.2 mg/dL Normal [facility].; [employer]. Laboratory - Hematology and Cell countson 05-31-2018 Hemoglobin Ql (U) moderate Abnormal [facility].; [employer]. Laboratory - Specimen inform ationon 05-31-2018 Appearance (U) clear Normal [facility].; [employer]. Color (U) yellow Normal [employer]. Laboratory - Urinalysison Glucose Test strip (U) [Mass/Vol] Negative Normal [employer].; [employer], [employer]. Leukocyte esterase Test strip Ql (U) moderate Abnormal [place] [employer] [facility].; [email or web address], [employer]. Protein Ql (U) Negative Normal [facility].; [employer]. Laboratory - UrinalysisOrder ed By: Ying Booth on 05-31-2018 Nitrite Ql (U) Negative Normal [facility] [employer]. Laboratory - Chemistry and C hemistry - challengeon 01-01-2017 Cobalamin (Vitamin B12) [Mass/Vol] 399 pg/mL Normal 180 - 914 pg/mL [facility].; [email or web address], [employer]. Ferritin [Mass/Vol] 18 ng/mL Normal 10 - 291 ng/mL [employer].; [employer], [employer]. Folate (RBC) [Mass/Vol] >23.6 Abnormal 3.5 - 20.0 ng/mL [facility].; [email or web address], [employer]. Free T3 [Mass/Vol] T3, FREE Normal [place] [employer] [facility].; [employer], [employer]. Free T4 [Mass/Vol] 1.00 ng/dL Normal 0.61 - 1. 12 ng/dL [employer].; [email or web address] Iron [Mass/Vol] 44 ug/dL Abnormal 50 - 170 ug/dL [place] [employer] [facility].; [email or web address] Iron binding capacity [Mass/Vol] 381 ug/dL Normal 250 - 450 ug/dL [employer].; [facility], [facility]. TSH Qn 4.54 m[IU]/L Normal 0.34 - 5.60 {uIU/ml} [facility].; [facility] Laboratory - Drug toxicology on 01-01-2017 Vancomycin peak [Mass/Vol] 337 ug/dL Normal 155 - 355 ug/dL [facility]; [employer] [place] [employer] [facility] Laboratory - Chemistry and C hemistry - challengeon 09-17-2016 TSH Qn 0.64 m[IU]/L Normal 0.34 - 5.60 {uIU/ml} [facility].; [facility] Laboratory - Chemistry and C hemistry - challengeon 08-04-2016 TSH Qn 0.23 m[IU]/L Abnormal 0.34 - 5.60 {uIU/ml} [facility].; [employer] [facility] Laboratory - Chemistry and C hemistry - challengeon 06-25-2016 TSH Qn 4.78 m[IU]/L Normal 0.34 - 5.60 {uIU/ml} [facility].; [employer] [facility] Laboratory - Microbiology an d Antimicrobial susceptibilityon 06-25-2016 S. pyogenes Ag EIA Ql (Throat) Negative Normal [facility]; [employer] [facility]. Laboratory - Chemistry and C hemistry - challengeon 02-12-2016 TSH Qn 3.37 m[IU]/L Normal 0.34 - 5.60 {uIU/ml} [facility].; [place] [employer] [facility]. Laboratory - Microbiology an d Antimicrobial susceptibilityon 01-17-2014 S. pyogenes Ag EIA Ql (Throat) Negative Normal [facility].; [employer] [facility] Laboratory - Chemistry and C hemistry - challengeon 12-13-2013 TSH Qn 3.21 m[IU]/L Normal 0.34 - 5.60 {uIU/ml} [facility].; [employer] [facility] Laboratory - Chemistry and C hemistry - challengeon 06-22-2013 Cancer Ag 19-9 Qn CA 19-9 Normal [facility].; [employer] Work Phone: Laboratory - Hematology and Cell countson 06-22-2013 HbA1c (Bld) [Mass fraction] 5.1 % Normal [facility]; [facility] Work Phone: Laboratory - Chemistry and C hemistry - challengeon 06-14-2013 T3/Triiodothyronine (T3) uptake index [Ratio] 37 % Normal 25.50 - 37 % [facility]; [facility] Work Phone: T4 [Mass or moles/Vol] T4 (THYROXINE) TOTAL Normal [facility]; [employer] [facility] Work Phone: T4 [Mass/Vol] 8.9 ug/dL Normal 4.50 - 10.90 ug/dL [facility]; [employer] [facility] Work Phone: TSH Qn 3.81 m[IU]/L Normal 0.35 - 5.50 {uIU/ml} [facility]; [employer] [facility] Laboratory - Chemistry and C hemistry - challengeon 04-28-2013 Glucose Glucometer (BldC) [Moles/Vol] 110 Normal 60 - 120 [facility]; [facility] Laboratory - Chemistry and C hemistry - challengeon 04-19-2013 Free T3 [Mass/Vol] 3.0 pg/mL Normal 2.3 - 4.2 pg/mL [facility]; [facility] T4 [Mass/Vol] 6.5 ug/dL Normal 4.5 - 12.0 ug/dL [facility]; [employer] [facility] TSH Qn 5.35 {uIU/mL} Abnormal 0.45 - 4.50 {uIU/mL} [facility]; [employer] [facility] Laboratory - Hematology and Cell countson 04-19-2013 HbA1c (Bld) [Mass fraction] 5.7 % Abnormal 4.8 - 5.6 % [facility]; [employer] [facility] Laboratory - Chemistry and C hemistry - challengeon 10-08-2010 Albumin [Mass/Vol] 4.8 g/dL Normal 3.6 - 5.1 g/dL [facility], [facility].; [facility], [facility] Albumin/Globulin [Mass ratio] 1.7 {ratio} Normal 1.0 - 2.1 [facility], [facility]. ALP [Catalytic activity/Vol] 61 U/L Normal 33 - 115 U/L [facility].; [facility], [facility]. ALT [Catalytic activity/Vol] 12 U/L Normal 6 - 40 U/L [facility].; [facility], [facility]. AST [Catalytic activity/Vol] 15 U/L Normal 10 - 30 U/L [facility].; [facility], [facility]. Bilirubin [Mass/Vol] 0.5 mg/dL Normal 0.2 - 1 .2 mg/dL [facility], [facility].; [facility], [facility]. Calcium [Mass/Vol] 10.0 mg/dL Normal 8.6 - 10. 2 mg/dL [facility], [facility].; [employer] [facility], [facility]. Chloride [Moles/Vol] 103 mmol/L Normal 98 - 11 0 mmol/L [facility].; [facility], [facility]. CO2 [Moles/Vol] 25 mmol/L Normal 21 - 33 mmol/L [facility].; [employer] [facility], [facility]. Creatinine [Mass/Vol] 0.70 mg/dL Normal 0.57 - 1.03 mg/dL [facility], [facility].; [facility], [facility]. GFR/1.73 sq M.predicted among blacks MDRD (S/P/Bld) [Vol rate/Area] mL/min/{1.73_m2} Normal [facility], [facility].; [facility], [facility]. GFR/1.73 sq M.predicted MDRD (S/P/Bld) [Vol rate/Area] mL/min/{1.73_m2} Normal [facility], [facility].; [employer] [facility] Globulin (S) [Mass/Vol] 2.8 g/dL Normal 2.2 - 3.9 g/dL [facility], [facility].; [facility] Glucose [Mass/Vol] 90 mg/dL Normal 65 - 99 mg/dL [facility].; [facility] Potassium [Moles/Vol] 4.1 mmol/L Normal 3.5 - 5.3 mmol/L [facility]; [facility] Protein [Mass/Vol] 7.6 g/dL Normal 6.2 - 8.3 g/dL [facility]; [facility] Sodium [Moles/Vol] 138 mmol/L Normal 135 - 146 mmol/L [facility]; [facility] Urea nitrogen [Mass/Vol] 14 mg/dL Normal 7 - 25 mg/dL [facility]; [facility] Urea nitrogen/Creatinine [Mass ratio] 19.7 mg/mg Normal 6 - 22 [facility]; [facility] Vital Signs Date Time Vital Sign Value Performing Clinician Facility 06-12-2025 11:42-0400 Diastolic blood pressure 69 mm[Hg] Joyce Boyce [employer] Work Phone: [facility] 06-12-2025 11:42-0400 Heart rate 81 /min Joyce Boyce [employer] Work Phone: [facility] 06-12-2025 11:42-0400 Systolic blood pressure 121 mm[Hg] Joyce Boyce [employer] Work Phone: [facility] 06-12-2025 08:56-0400 Body height 154.94 cm Joyce Boyce [employer] Work Phone: [facility] 06-12-2025 08:56-0400 Body temperature 96.1 [degF] Joyce Boyce [employer] Work Phone: [facility] 06-12-2025 08:56-0400 Respiratory rate 16 /min Joyce Boyce [employer] Work Phone: [facility] 06-12-2025 08:56-0400 SaO2% (BldA) [Mass fraction] 100 % Joyce Boyce [employer] Work Phone: [facility] 06-06-2025 11:39-0400 Diastolic blood pressure 71 mm[Hg] Joyce Boyce [employer] Work Phone: [facility] 06-06-2025 11:39-0400 Heart rate 77 /min Joyce Boyce [employer] Work Phone: [facility] 06-06-2025 11:39-0400 Respiratory rate 16 /min Joyce Boyce [employer] Work Phone: [facility] 06-06-2025 11:39-0400 Systolic blood pressure 130 mm[Hg] Joyce Boyce [employer] Work Phone: [facility] 06-06-2025 08:57-0400 Body height 154.94 cm Joyce Aritaodreen [employer] Work Phone: [facility] 06-06-2025 08:57-0400 Body temperature 96.9 [degF] Joyce Aritadoreen [employer] Work Phone: [facility] 06-06-2025 08:57-0400 SaO2% (BldA) [Mass fraction] 100 % Joyce Boyce [employer] Work Phone: [facility] 06-01-2025 11:40-0400 Body temperature 98.1 [degF] Dr. Jessica Perez MD Work Phone: [facility] 06-01-2025 11:40-0400 Diastolic blood pressure 64 mm[Hg] Dr. Jessica Perez MD Work Phone: [facility] 06-01-2025 11:40-0400 Heart rate 85 /min Dr. Jessica Perez MD Work Phone: [facility] 06-01-2025 11:40-0400 Respiratory rate 14 /min Dr. Jessica Perez MD Work Phone: [facility] 06-01-2025 11:40-0400 SaO2% (BldA) [Mass fraction] 100 % Dr. Jessica Perez MD Work Phone: [facility] 06-01-2025 11:40-0400 Systolic blood pressure 112 mm[Hg] Dr. Jessica Perez MD Work Phone: 3(837)[phone] [address] 06-01-2025 09:03-0400 Body height 154.[address] Jessica Perez MD Work Phone: 0(413)[phone] [address] 05-08-2025 11:01-0400 Body height 154.[address] Jessica Perez MD Work Phone: 3(151)772-182051 [address] 05-08-2025 11:01-0400 Body mass index (BMI) [Ratio] 29.2 kg/m2 Dr. Jessica Perez MD Work Phone: 0(745)[phone] [address] 05-08-2025 11:01-0400 Body weight 70.[address] Jessica Perez MD Work Phone: 2(636)[phone] [address] 05-08-2025 11:01-0400 Diastolic blood pressure 80 mm[Hg] Dr. Jessica Perez MD Work Phone: 6(201)[phone] [address] 05-08-2025 11:01-0400 Systolic blood pressure 131 mm[Hg] Dr. Jessica Perez MD Work Phone: 5(971)[phone] [address] 03-20-2025 13:36-0400 Body height 154.[address] Jessica Perez MD Work Phone: 1(525)[phone] [address] 03-20-2025 13:35-0400 Body mass index (BMI) [Ratio] 28.9 kg/m2 Dr. Jessica Perez MD Work Phone: 0(658)[phone] [address] 03-20-2025 13:35-0400 Body weight 69.[address] Jessica Perez MD Work Phone: 6(762)[phone] [address] 03-20-2025 13:35-0400 Diastolic blood pressure 84 mm[Hg] Dr. Jessica Perez MD Work Phone: [phone] [address] 03-20-2025 13:35-0400 Systolic blood pressure 137 mm[Hg] Dr. Jessica Perez MD Work Phone: [phone] [address] 02-06-2025 08:11-0400 Body height 154.[address] Jessica Perez MD Work Phone: [facility] 02-06-2025 08:11-0400 Body mass index (BMI) [Ratio] 29 kg/m2 Dr. Jessica Perez MD Work Phone: [facility] 02-06-2025 08:11-0400 Body weight 69.[address] Jessica Perez MD Work Phone: [facility] 02-06-2025 08:11-0400 Diastolic blood pressure 74 mm[Hg] Dr. Jessica Perez MD Work Phone: [facility] 02-06-2025 08:11-0400 Systolic blood pressure 108 mm[Hg] Dr. Jessica Perze MD Work Phone: [facility] 06-17-2024 10:00-0400 Body height 157.48 cm Nicolasa Flood COMBINATION PRESSER [facility], [facility]; [facility], [facility] 06-17-2024 10:00-0400 Body mass index (BMI) [Ratio] 30.18 kg/m2 [facility].; [facility], [facility]. 06-17-2024 10:00-0400 Body surface area Derived from formula 1.76 m2 Nicolasa Flood COMBINATION PRESSER [facility], [facility].; [facility]. 06-17-2024 10:00-0400 Body temperature 98.7 [degF] Nicolasa Flood [facility]; [facility], [facility]. Comment on above: Method: Tympanic 06-17-2024 10:000400 Body weight 74.84 kg Nicolasa Flood COMBINATION PRESSER [facility]; [facility], [facility]. 06-17-2024 10:00-0400 Diastolic blood pressure 83 mm[Hg] Nicolasa Flood COMBINATION PRESSER [facility]; [facility], [facility]. Comment on above: Patient Position: Sitting; Cuff Location : Left Arm; Cuff Size: Standard 08-30-2024 10:00-0400 Heart rate 91 /min Nicolasa Flood LPN [facility].; [facility], [facility]. Comment on above: Pattern: Regular 06-17-2024 10:00-0400 Inhaled oxygen concentration 21 % [facility] [employer] [facility].; [facility], [facility]. Comment on above: Room air 06-17-2024 10:00-0400 SaO2% (BldA) [Mass fraction] 99 % [facility].; [facility]. 06-17-2024 10:00-0400 Systolic blood pressure 116 mm[Hg] Nicolasa Flood COMBINATION PRESSER [facility].; [facility], [employer]. Comment on above: Patient Position: Sitting; Cuff Location : Left Arm; Cuff Size: Standard 09-19-2022 08:16-0500 Body height 157.48 cm Elsa Arnold RN [facility], [facility].; [facility]. 09-19-2022 08:16-0500 Body mass index (BMI) [Ratio] 32.74 kg/m2 Elsa Arnold RN [facility], [facility].; [facility], [facility]. 09-19-2022 08:16-0500 Body surface area Derived from formula 1.82 m2 Elsa Arnold RN [facility].; [facility]. 09-19-2022 08:16-0500 Body temperature 98.1 [degF] Elsa Arnold RN [facility].; [employer] [facility] Comment on above: Method: Tympanic 09-19-2022 08:16-0500 Body weight 81.19 kg Elsa Arnold RN [facility], [facility].; [facility]. 09-19-2022 08:16-0500 Diastolic blood pressure 75 mm[Hg] Elsa Arnold RN [facility], [facility].; [place] [employer] [facility], [employer]. Comment on above: Patient Position: Sitting; Cuff Location : Left Arm; Cuff Size: Standard 09-19-2022 08:16-0500 Heart rate 72 /min Elsa Arnold RN [facility].; [place] [employer] [facility]. Comment on above: Pattern: Regular 09-19-2022 08:16-0500 Inhaled oxygen concentration 21 % Elsa Arnold RN [facility].; [facility]. Comment on above: Room air 09-19-2022 08:16-0500 SaO2% (BldA) [Mass fraction] 98 % Elsa Arnold RN [facility].; [facility]. 09-19-2022 08:16-0500 Systolic blood pressure 113 mm[Hg] Elsa Arnold RN [facility].; [facility]. Comment on above: Patient Position: Sitting; Cuff Location : Left Arm; Cuff Size: Standard 10-17-2021 10:35-0500 Body height 157.48 cm Bryanna Duran LPN [facility].; [facility], [facility]. 10-17-2021 10:35-0500 Body mass index (BMI) [Ratio] 32.01 kg/m2 Bryanna Duran LPN [facility], [facility].; [place] [employer] [facility] 10-17-2021 10:35-0500 Body surface area Derived from formula 1.81 m2 Bryanna Duran LPN [facility], [facility].; [place] [employer] [facility] 10-17-2021 10:35-0500 Body temperature 97.7 [degF] [facility]elia [facility].; [employer]. Comment on above: Method: Tympanic 10-17-2021 10:35-0500 Body weight 79.38 kg Bryanna Duran LPN [facility].; [place] [employer], [employer]. 10-17-2021 10:35-0500 Diastolic blood pressure 87 mm[Hg] Bryannaofelia Duran LPN [facility], [facility].; [employer]. Comment on above: Patient Position: Sitting; Cuff Location : Left Arm; Cuff Size: Standard 10-17-2021 10:35-0500 Heart rate 75 /min Bryanna Duran LPN [facility], [facility].; [place] [employer] [facility]. Comment on above: Pattern: Regular 10-17-2021 10:35-0500 Inhaled oxygen concentration 21 % Bryanna Duran LPN [facility].; [place] [employer] [facility]. Comment on above: Room air 10-17-2021 10:35-0500 SaO2% (BldA) [Mass fraction] 99 % Bryannaofelia Duran [facility].; [facility]. 10-17-2021 10:35-0500 Systolic blood pressure 119 mm[Hg] Bryanna Duran [facility].; [place] [employer] [facility]. Comment on above: Patient Position: Sitting; Cuff Location : Left Arm; Cuff Size: Standard 08-13-2021 13:07-0400 Body height 157.48 cm Mckenna Larry LPN [facility].; [place] [employer] [facility] [employer]. 08-13-2021 13:07-0400 Body mass index (BMI) [Ratio] 31.82 kg/m2 Mckenna Larry [facility], [facility].; [employer], [employer]. 08-13-2021 13:07-0400 Body surface area Derived from formula 1.8 m2 Mckenna Larry LPN [facility], [facility].; [place] [employer] [facility]. 08-13-2021 13:07-0400 Body temperature 98.5 [degF] Mckenna Larry LPN [facility], [facility].; [employer]. Comment on above: Method: Tympanic 08-13-2021 13:07-0400 Body weight 78.93 kg Mckenna Larry LPN [facility].; [employer]. 08-13-2021 13:07-0400 Diastolic blood pressure 76 mm[Hg] Mckenna Larry LPN [facility], [facility].; [employer]. Comment on above: Patient Position: Sitting; Cuff Location : Right Arm; Cuff Size: Standard 08-13-2021 13:07-0400 Heart rate 76 /min Mckenna Larry LPN [facility], [facility].; [employer]. Comment on above: Pattern: Regular 08-13-2021 13:07-0400 Inhaled oxygen concentration 21 % Mckenna Larry LPN [facility] [employer] Comment on above: Room air 08-13-2021 13:07-0400 SaO2% (BldA) [Mass fraction] 99 % Mckenna Larry LPN [facility], [facility] [employer] 08-13-2021 13:07-0400 Systolic blood pressure 111 mm[Hg] Mckenna Larry [facility] [employer] Comment on above: Patient Position: Sitting; Cuff Location : Right Arm; Cuff Size: Standard 05-31-2018 14:27-0400 Body height 157.48 cm Ying Booth LPN [facility], [facility].; [email or web address], [employer]. 05-31-2018 14:27-0400 Body mass index (BMI) [Ratio] 29.81 kg/m2 [facility]ing [facility] [employer] [facility] [email or web address] 05-31-2018 14:27-0400 Body surface area Derived from formula 1.75 m2 [facility]ing Booth [facility] [employer] [facility] [employer], [employer]. 05-31-2018 14:27-0400 Body temperature 100 [degF] Ying Booth [facility] [employer] [facility], [employer].; [employer], [employer]. Comment on above: Method: Tympanic 05-31-2018 14:27-0400 Body weight 73.94 kg Ying Booth LPN [place] [employer] [facility] [employer] 05-31-2018 14:27-0400 Diastolic blood pressure 87 mm[Hg] Ying Booth LPN [place] [employer] [facility] [employer], [employer]. Comment on above: Patient Position: Sitting; Cuff Location : Left Arm; Cuff Size: Standard 05-31-2018 14:27-0400 Heart rate 94 /min Ying Booth LPN [place] [employer] [facility] [employer], [employer]. Comment on above: Pattern: Regular 05-31-2018 14:27-0400 Systolic blood pressure 125 mm[Hg] Ying Booth [facility] [employer]. Comment on above: Patient Position: Sitting; Cuff Location : Left Arm; Cuff Size: Standard 09-26-2016 10:41-0500 Body height 157.48 cm Elsa Arnold RN [employer].; [employer]. 09-26-2016 10:41-0500 Body mass index (BMI) [Ratio] 27.8 kg/m2 Elsa Arnold RN [employer].; [employer]. 09-26-2016 10:41-0500 Body surface area Derived from formula 1.7 m2 Elsa Arnold RN [employer].; [employer]. 09-26-2016 10:41-0500 Body temperature 98.8 [degF] Elsa Arnold RN [employer].; [employer]. Comment on above: Method: Tympanic 09-26-2016 10:41-0500 Body weight 68.95 kg Elsa Arnold RN [employer].; [employer]. 09-26-2016 10:41-0500 Diastolic blood pressure 77 mm[Hg] Elsa Arnold RN [employer].; [employer]. Comment on above: Patient Position: Sitting; Cuff Location : Left Arm; Cuff Size: Standard 09-26-2016 10:41-0500 Heart rate 78 /min Elsa Arnold RN [employer].; [employer]. Comment on above: Pattern: Regular 09-26-2016 10:41-0500 Inhaled oxygen concentration 21 % Elsa Arnold RN [employer].; [employer]. Comment on above: Room air 09-26-2016 10:41-0500 SaO2% (BldA) [Mass fraction] 98 % Elsa Arnold RN [employer].; [employer]. 09-26-2016 10:41-0500 Systolic blood pressure 113 mm[Hg] Elsa Arnold RN [employer].; [employer]. Comment on above: Patient Position: Sitting; Cuff Location : Left Arm; Cuff Size: Standard 06-25-2016 10:43-0400 Body height 157.48 cm Pia Bond RN [place] [employer] [facility].; [employer]. 06-25-2016 10:43-0400 Body mass index (BMI) [Ratio] 27.67 kg/m2 Pia Bond RN [place] [employer] [facility].; [employer]. 06-25-2016 10:43-0400 Body surface area Derived from formula 1.7 m2 Pia Bond RN [place] [employer] [facility].; [employer]. 06-25-2016 10:43-0400 Body temperature 97.2 [degF] Pia Bond RN [employer].; [employer]. Comment on above: Method: Tympanic 06-25-2016 10:43-0400 Body weight 68.63 kg Pia Bond RN [place] [employer] [facility].; [employer]. 06-25-2016 10:43-0400 Diastolic blood pressure 86 mm[Hg] Pia Bond RN [employer].; [employer]. Comment on above: Patient Position: Sitting; Cuff Location : Left Arm; Cuff Size: Standard 06-25-2016 10:43-0400 Heart rate 64 /min Pia Bond RN [employer].; [employer]. Comment on above: Pattern: Regular 06-25-2016 10:43-0400 Systolic blood pressure 124 mm[Hg] Pia Bond RN [employer].; [employer]. Comment on above: Patient Position: Sitting; Cuff Location : Left Arm; Cuff Size: Standard 12-13-2014 12:09-0500 Body height 157.48 cm Pia Bond RN [employer].; [employer]. 12-13-2014 12:09-0500 Body mass index (BMI) [Ratio] 25.97 kg/m2 Pia Bond RN [employer].; [employer]. 12-13-2014 12:09-0500 Body surface area Derived from formula 1.65 m2 Pia Bond RN [employer].; [employer]. 12-13-2014 12:09-0500 Body temperature 98.7 [degF] Pia Bond RN [facility] [employer]. Comment on above: Method: Tympanic 12-13-2014 12:09-0500 Body weight 64.41 kg Pia Bond RN [facility] [employer].; [employer]. 12-13-2014 12:09-0500 Diastolic blood pressure 78 mm[Hg] Pia Bond RN [facility] [employer].; [employer]. Comment on above: Patient Position: Sitting; Cuff Location : Left Arm; Cuff Size: Standard 12-13-2014 12:09-0500 Heart rate 67 /min Pia Bond RN [facility] [employer].; [employer]. Comment on above: Pattern: Regular 12-13-2014 12:09-0500 Systolic blood pressure 123 mm[Hg] Pia Bond RN [employer].; [employer]. Comment on above: Patient Position: Sitting; Cuff Location : Left Arm; Cuff Size: Standard 09-26-2014 11:32-0500 Body temperature 98.7 [degF] Jair Soto PA-C Work Phone: [employer].; [employer]. Comment on above: Method: Tympanic 09-26-2014 11:32-0500 Body weight 63.05 kg Jair Soto PA-C Work Phone: [employer].; [employer]. 09-26-2014 11:32-0500 Diastolic blood pressure 75 mm[Hg] Jair Soto PA-C Work Phone: [employer].; [employer]. Comment on above: Patient Position: Sitting; Cuff Location : Right Arm; Cuff Size: Standard 09-26-2014 11:32-0500 Heart rate 78 /min Jair Soto PA-C Work Phone: [place] [employer]; [employer]. Comment on above: Pattern: Regular 09-26-2014 11:32-0500 Systolic blood pressure 126 mm[Hg] Jair Soto PA-C Work Phone: [employer]; [employer]. Comment on above: Patient Position: Sitting; Cuff Location : Right Arm; Cuff Size: Standard 07-05-2014 12:090400 Body height 157.48 cm Pia Bond RN [employer].; [employer]. 07-05-2014 12:09-0400 Body mass index (BMI) [Ratio] 25.61 kg/m2 Pia Bond RN [employer].; [employer]. 07-05-2014 12:040 Body surface area Derived from formula 1.64 m2 Pia Bond RN [employer].; [employer]. 07-05-2014 12:090400 Body temperature 97.8 [degF] Pia Bond RN [employer].; [employer]. Comment on above: Method: Tympanic 07-05-2014 12:090400 Body weight 63.5 kg Pia Bond RN [employer].; [employer]. 07-05-2014 12:090400 Diastolic blood pressure 78 mm[Hg] Pia Bond RN [employer].; [employer]. Comment on above: Patient Position: Sitting; Cuff Location : Left Arm; Cuff Size: Standard 07-05-2014 12:090400 Heart rate 66 /min Pia Bond RN [employer].; [employer]. Comment on above: Pattern: Regular 07-05-2014 12:090400 Inhaled oxygen concentration 21 % Pia Bond RN [employer].; [employer]. Comment on above: Room air 07-05-2014 12:09-0400 SaO2% (BldA) [Mass fraction] 99 % Pia Bond RN [employer].; [employer]. 07-05-2014 12:09-0400 Systolic blood pressure 111 mm[Hg] Pia Bond RN [email or web address], [employer].; [employer]. Comment on above: Patient Position: Sitting; Cuff Location : Left Arm; Cuff Size: Standard 01-17-2014 11:02-0400 Body height 157.48 cm Siomara Cortez LPN [facility] [employer], [employer]. 01-17-2014 11:02-0400 Body mass index (BMI) [Ratio] 25.79 kg/m2 Siomara Cortez LPN [place] [employer] [facility] [employer], [employer]. 01-17-2014 11:02-0400 Body surface area Derived from formula 1.65 m2 Siomara Cortez LPN [place] [employer] [facility] [employer], [employer]. 01-17-2014 11:02-0400 Body temperature 98.4 [degF] Siomara Cortez COMBINATION PRESSER [place] [employer] [facility], [employer].; [employer], [employer]. Comment on above: Method: Tympanic 01-17-2014 11:020400 Body weight 63.96 kg Siomara Cortez LPN [place] [employer] [facility] [employer], [employer]. 01-17-2014 11:02-0400 Diastolic blood pressure 75 mm[Hg] Siomara Cortez LPN [employer] [facility], [employer].; [employer], [employer]. Comment on above: Patient Position: Sitting; Cuff Location : Right Arm; Cuff Size: Standard 01-17-2014 11:02-0400 Heart rate 74 /min Siomara Cortez LPN [place] [employer] [facility] [employer]. Comment on above: Pattern: Regular 01-17-2014 11:02-0400 Systolic blood pressure 131 mm[Hg] Siomara Cortez LPN [email or web address], [employer].; [employer]. Comment on above: Patient Position: Sitting; Cuff Location : Right Arm; Cuff Size: Standard 12-07-2013 12:11-0500 Body height 157.48 cm Pia Bond RN [place] [employer] [facility], [employer].; [email or web address], [employer]. 12-07-2013 12:11-0500 Body mass index (BMI) [Ratio] 26.59 kg/m2 Pia Bond RN [place] [employer] [facility].; [employer]. 12-07-2013 12:11-0500 Body surface area Derived from formula 1.67 m2 Pia Bond [facility].; [employer]. 12-07-2013 12:11-0500 Body temperature 98.6 [degF] Pia Bond RN [employer].; [employer]. Comment on above: Method: Tympanic 12-07-2013 12:110500 Body weight 65.95 kg Pia Bond RN [place] [employer] [facility].; [employer]. 12-07-2013 12:11-0500 Diastolic blood pressure 77 mm[Hg] Pia Bond RN [employer].; [employer]. Comment on above: Patient Position: Sitting; Cuff Location : Left Arm; Cuff Size: Standard 12-07-2013 12:11-0500 Heart rate 78 /min Pia Bond RN [employer].; [employer]. Comment on above: Pattern: Regular 12-07-2013 12:11-0500 Inhaled oxygen concentration 21 % Pia Bond RN [employer].; [employer]. Comment on above: Room air 12-07-2013 12:11-0500 SaO2% (BldA) [Mass fraction] 99 % Pia Bond RN [employer].; [employer]. 12-07-2013 12:11-0500 Systolic blood pressure 114 mm[Hg] Pia Bond RN [employer].; [employer]. Comment on above: Patient Position: Sitting; Cuff Location : Left Arm; Cuff Size: Standard 07-06-2013 13:230400 Body height 157.48 cm Ying Booth LPN [employer].; [employer]. 07-06-2013 13:23-0400 Body mass index (BMI) [Ratio] 27.14 kg/m2 Ying Booth LPN [employer].; [employer]. 07-06-2013 13:230400 Body surface area Derived from formula 1.68 m2 Ying Booth CLARE [facility], [facility].; [place] [employer] [facility], [employer]. 07-06-2013 13:23-0400 Body temperature 98.5 [degF] Ying Booth [facility], [facility].; [place] [employer], [employer]. Comment on above: Method: Tympanic 07-06-2013 13:23-0400 Body weight 67.3 kg Ying Booth [facility], [facility].; [employer]. 07-06-2013 13:23-0400 Diastolic blood pressure 86 mm[Hg] Ying Booth [facility], [facility].; [employer], [employer]. Comment on above: Patient Position: Sitting; Cuff Location : Left Arm; Cuff Size: Standard 07-06-2013 13:23-0400 Heart rate 75 /min Ying Gallopaty [facility], [facility].; [employer], [employer]. Comment on above: Pattern: Regular 07-06-2013 13:23-0400 Inhaled oxygen concentration 21 % Ying Gallopaty [facility], [facility].; [employer]. Comment on above: Room air 07-06-2013 13:23-0400 SaO2% (BldA) [Mass fraction] 99 % Yingpito Booth [facility], [facility].; [employer], [employer]. 07-06-2013 13:23-0400 Systolic blood pressure 128 mm[Hg] Ying Booth [facility], [facility].; [employer]. Comment on above: Patient Position: Sitting; Cuff Location : Left Arm; Cuff Size: Standard 04-28-2013 13:52-0400 Body height 157.48 cm Pia Bond RN [facility], [employer].; [place] [employer] [facility]. 04-28-2013 13:52-0400 Body mass index (BMI) [Ratio] 27.51 kg/m2 Pia Bond [facility].; [employer]. 04-28-2013 13:52-0400 Body surface area Derived from formula 1.69 m2 Pia Bond RN [facility].; [employer]. 04-28-2013 13:52-0400 Body temperature 98.5 [degF] Pia Bond [facility].; [place] [employer] [facility]. Comment on above: Method: Tympanic 04-28-2013 13:52-0400 Body weight 68.22 kg Pia Bond RN [facility].; [employer]. 04-28-2013 13:52-0400 Diastolic blood pressure 78 mm[Hg] Pia Bond RN [facility].; [employer]. Comment on above: Patient Position: Sitting; Cuff Location : Left Arm; Cuff Size: Standard 04-28-2013 13:52-0400 Heart rate 82 /min Pia Bond RN [facility].; [employer]. Comment on above: Pattern: Regular 04-28-2013 13:52-0400 Systolic blood pressure 121 mm[Hg] Pia Bond [facility].; [employer]. Comment on above: Patient Position: Sitting; Cuff Location : Left Arm; Cuff Size: Standard 10-08-2010 09:110500 Body height 157.48 cm Jair Soto PA-C Work Phone: [facility] [employer]. 10-08-2010 09:11-0500 Body mass index (BMI) [Ratio] 26.34 kg/m2 Jair Soto PA-C Work Phone: [employer].; [employer]. 10-08-2010 09:11-0500 Body surface area Derived from formula 1.66 m2 Jair Soto PA-C Work Phone: [employer].; [employer]. 10-08-2010 09:11-0500 Body weight 65.32 kg Jair Soto PA-C Work Phone: [employer].; [employer]. 10-08-2010 09:11-0500 Diastolic blood pressure 84 mm[Hg] Jair Soto PA-C Work Phone: [employer] [facility] [employer] [facility]. Comment on above: Patient Position: Sitting; Cuff Location : Left Arm; Cuff Size: Standard 10-08-2010 09:11-0500 Heart rate 86 /min Jair Soto PA-C Work Phone: [employer] [facility] [employer]. Comment on above: Pattern: Regular 10-08-2010 09:11-0500 Systolic blood pressure 127 mm[Hg] Jair Soto PA-C Work Phone: [employer] [facility] [employer].; [facility] [facility] [employer] Comment on above: Patient Position: Sitting; Cuff Location : Left Arm; Cuff Size: Standard Encounters Encounter Date Encounter Type Care Provider Facility Start: 06-13-2025 ambulatory Maura Ruiz lity:[facility] Start: 06-12-2025 Encounter for other preprocedural examination Maura Vargsa [facility] Start: 06-12-2025 ambulatory Maura Ruiz lity:[facility] Start: 06-12-2025 Non-patient / Non-visit Dr. Yanna Vargas MD -[facility] Start: 06-12-2025 End: 06-12-[address] Maura Vargas MD -Medical Out Work Phone: Start: 06-12-2025 End: 06-12-2025 ambulatory Joyce Boyce NP-C Work Phone: -Medical Out Start: 06-06-2025 End: 06-06-[address] Maura Vargas MD -Medical Out Work Phone: Start: 06-06-2025 End: 06-06-2025 ambulatory Joyce Boyce NP-C Work Phone: -Medical Out Start: 06-01-2025 End: 06-01-[address] Maura Vargas MD -Medical Out Work Phone: Start: 06-01-2025 End: 06-01-[address] Jessica Perez MD Work Phone: -Medical Out Start: 05-23-2025 End: 05-23-2025 [facility] Start: 05-11-2025 End: 05-11-[address] Jessica Perez MD Work Phone: -Ultrasound [facility] Start: 05-11-2025 End: 05-11-[address] Maura Vargas MD -Ultrasound [facility] Work Phone: Start: 05-10-2025 End: 05-11-2025 [facility] Start: 05-08-2025 End: 05-08-[address] Maura Vargas MD -[facility] Work Phone: Start: 05-08-2025 End: 05-08-[address] Jessica Perez MD Work Phone: -[facility] Start: 05-08-2025 End: 05-08-2025 ambulatory Maura Vargas Facility:[facility] Start: 03-20-2025 End: 03-20-[address] Jessica Perez MD Work Phone: [facility] Work Phone: Start: 03-20-2025 End: 03-20-[address] Maura Vargas MD -Laboratory Specimen Work Phone: Start: 03-20-2025 End: 03-20-[address] Maura Vargas MD -[facility] Work Phone: Start: 03-20-2025 End: 03-20-[address] Jessica Perez MD Work Phone: [facility] Work Phone: Start: 03-20-2025 End: 03-20-2025 ambulatory Maura Vargas Facility:[facility] Start: 03-09-2025 End: 03-09-[address] Jessica Perez MD Work Phone: [facility] Work Phone: Start: 03-09-2025 End: 03-09-2025 Patient encounter procedure Joyce MATTHEW -Ultrasound [facility] Work Phone: Start: 03-09-2025 End: 03-09-2025 ambulatory Joyce Boyce Facility:[facility] Start: 03-02-2025 End: 03-02-[address] Jessica Perez MD Work Phone: [facility] Work Phone: Start: 03-02-2025 End: 03-02-2025 Patient encounter procedure Joyce MATTHEW -Cat Scan [facility] Work Phone: Start: 03-02-2025 End: 03-02-2025 ambulatory Joyce Boyce Facility:[facility] Start: 02-06-2025 End: 02-06-2025 Patient encounter procedure Joyce MATTHEW -Outpatient Breast Imaging Work Phone: Start: 02-06-2025 End: 02-06-2025 Patient encounter procedure Joyce LEMONC -[facility] Start: 02-06-2025 End: 02-06-2025 Patient encounter status Joyce Boyce [facility] Start: 02-06-2025 End: 02-06-2025 ambulatory Jessica Perez Facility:[facility] Start: 02-06-2025 End: 02-06-2025 ambulatory Jessica Perez Facility:[facility] Start: 10-14-2024 End: 10-14-2024 ambulatory JAIR SOTO [facility] Start: 07-21-2024 Review Jair Wade Work Phone: [facility]. Start: 07-15-2024 End: 07-15-2024 ambulatory GABI ISAAC [facility] Start: 07-15-2024 End: 07-15-2024 Orders Jair Soto PA-C Work Phone: [employer] Start: 07-13-2024 End: 07-13-2024 Orders Jair Soto PA-C Work Phone: [employer] Start: 07-12-2024 End: 07-12-2024 ambulatory PAUL MARIN [facility] Start: 07-08-2024 End: 07-08-2024 Orders Jair Soto PA-C Work Phone: [employer] Start: 07-08-2024 End: 07-08-2024 ambulatory [facility] Start: 06-24-2024 End: 06-24-2024 Orders Jair Soto PA-C Work Phone: [employer] Start: 06-24-2024 End: 06-24-2024 ambulatory [facility] Start: 06-22-2024 End: 06-22-2024 Orders Jair Soto PA-C Work Phone: [employer] Start: 06-17-2024 End: 06-17-2024 Office outpatient visit 25 minutes Jair Soto PA-C Work Phone: [employer] Start: 09-19-2022 End: 09-19-2022 Office outpatient visit 25 minutes Jair Soto PA-C Work Phone: [employer] Start: 10-17-2021 End: 10-17-2021 Office outpatient visit 15 minutes Jair Soto PA-C Work Phone: [employer] Start: 08-13-2021 End: 08-13-2021 Office outpatient new 30 minutes Jair Soto PA-C Work Phone: [employer] Start: 06-07-2018 End: 06-07-2018 Medication Jair Soto PA-C Work Phone: [employer] Start: 05-31-2018 End: 05-31-2018 Office outpatient visit 15 minutes Jair Soto PA-C Work Phone: [employer]. Start: 01-21-2017 End: 01-21-2017 Patient encounter procedure Jair Soto PA-C Work Phone: [employer]. Start: 12-31-2016 End: 01-01-2017 Orders Jair Soto PA-C Work Phone: [employer]. Start: 09-26-2016 End: 09-26-2016 Patient encounter procedure Jair Soto PA-C Work Phone: [employer]. Start: 08-04-2016 End: 08-04-2016 Orders Jair Soto PA-C Work Phone: [employer] Start: 07-29-2016 End: 07-29-2016 Orders Jair Soto PA-C Work Phone: [employer]. Start: 06-27-2016 End: 07-01-2016 Orders Jair Soto PA-C Work Phone: [employer]. Start: 06-26-2016 End: 06-26-2016 Orders Jair Soto PA-C Work Phone: [employer]. Start: 06-25-2016 End: 06-26-2016 Orders Jair Soto PA-C Work Phone: [employer]. Start: 06-25-2016 End: 06-25-2016 Patient encounter procedure Jair Soto PA-C Work Phone: [employer] Start: 01-24-2016 End: 01-24-2016 Orders Jair Soto PA-C Work Phone: [employer] Start: 12-13-2014 End: 12-13-2014 Patient encounter procedure Jair Soto PA-C Work Phone: [employer] Start: 09-26-2014 End: 09-26-2014 Patient encounter procedure Jair Soto PA-C Work Phone: [employer] Start: 07-05-2014 End: 07-05-2014 Patient encounter procedure Jair Soto PA-C Work Phone: [employer]. Start: 05-26-2014 End: 05-26-2014 Medication Jair Soto PA-C Work Phone: [employer]. Start: 01-17-2014 End: 01-17-2014 Patient encounter procedure Jair Soto PA-C Work Phone: [employer] Start: 12-17-2013 End: 12-17-2013 Orders Jair Soto PA-C Work Phone: [employer] Start: 12-07-2013 End: 12-07-2013 Patient encounter procedure Jair Soto PA-C Work Phone: [employer] Start: 07-06-2013 End: 07-06-2013 Patient encounter procedure Jair Soto PA-C Work Phone: [employer] Start: 06-15-2013 End: 06-15-2013 Orders Jair Soto PA-C Work Phone: [employer] Start: 04-28-2013 End: 04-28-2013 Patient encounter procedure Jair Soto PA-C Work Phone: [employer] Start: 04-20-2013 End: 04-20-2013 Laboratory examination ordered as part of a routine general medical examination Jair Soto PA-C Work Phone: [employer]; [employer] Start: 04-20-2013 End: 04-20-2013 Orders Jair Soto PA-C Work Phone: [employer] Start: 10-07-2011 End: 10-07-2011 Patient encounter procedure Jair Soto PA-C Work Phone: [employer] Start: 10-17-2010 End: 10-17-2010 Patient encounter procedure Jair Soto PA-C Work Phone: [facility] Start: 10-10-2010 End: 10-10-2010 Orders Jair Soto PA-C Work Phone: [facility] Start: 10-08-2010 End: 10-08-2010 Patient encounter procedure Jair Soto PA-C Work Phone: [facility] Start: 10-07-2010 End: 10-07-2010 Historical Summary Jair Soto PA-C Work Phone: [facility] Procedures Date Procedure Procedure Detail Performing Clinician Start: 05-11-[address] Kiesha Perez MD Work Phone: Start: 05-08-[address] Jessica Perez MD Work Phone: Start: 03-09-[address] Kiesha Perez MD Work Phone: Start: 03-02-2025 Computed tomography of abdomen and pelvis with contrast Dr. Jessica Perez MD Work Phone: Start: 02-06-2025 Liquid based cervica l cytology screening Dr. Jessica Perez MD Work Phone: Comment on above: NEGATIVE FOR INTRAEP ITHELIAL LESION OR MALIGNANCY.THIS SPECIMEN WAS RESCREENED PART OF OUR FIELD SAMPLING TECHNICIAN PROGRAM. This liquid based Th inPrep(R) pap test was screened withthe use of an image guided system. Start: 09-19-2022 End: 09-19-2022 Ecg routine ecg w/least 12 lds i&r only Jair Soto PA-C Work Phone: Start: 12-31-2016 End: 01-08-2017 Us soft tissue head & neck real time imge docm Elsa Aguilar PA-C Work Phone: Start: 06-25-2016 End: 06-26-2016 Us soft tissue head & neck real time imge docm Elsa Aguilar PA-C Work Phone: Start: 10-14-2010 End: 10-17-2010 Hepatobiliary imaging Jessica Perez MD Work Phone: Start: 10-08-2010 End: 10-10-2010 Us abdominal real time w/image limited Jessica Perez MD Work Phone: Plan of Treatment Date Care Activity Detail Author Start: 06-06-2025 Iv infusion therapy prophylaxis/dx ea hour THER/PROPH/DIAG IV INF [facility] Start: 06-06-2025 Iv infusion therapy/prophylaxis /dx 1st to 1 hr THER/PROPH/DIAG IV INF [facility] Start: 07-15-2024 Antibody protozoa erika [employer]; [employer] Start: 07-08-2024 Assay of iron ANEMIA PANEL (23262,54421,59769,56575 ,56374) (ANEMI) Start: 08-Jul-2024 12:55-04:00 Request [employer]; [employer] Start: 06-24-2024 Blood count complete auto&auto difrntl wbc CBC, PLATELETS & AUT DIFF (F) (25872) Start: 24-Jun-2024 13:41-04:00 Request [employer]; [employer] Start: 06-22-2024 Blood count complete auto&auto difrntl wbc CBC, PLATELETS & AUT DIFF (F) (01026) Start: 22-Jun-2024 10:10-04:00 Request [employer]; [employer] Start: 06-17-2024 C-reactive protein C-REACTIVE PROTEIN (02491) Start: 17-Jun-2024 11:04-04:00 Request [employer]; [employer] Start: 06-17-2024 Cyanocobalamin vitamin b-12 VITAMIN B-12 SERUM (01278) Start: 17-Jun-2024 11:04-04:00 Request [employer] Start: 06-17-2024 Antibody borrelia burgdorferi lyme disease Lyme Titer/EIA, reflex IgM and IgG (97514) Start: 17-Jun-2024 11:04-04:00 [facility] Start: 06-17-2024 Blood count complete auto&auto difrntl wbc CBC, PLATELETS & AUT DIFF (F) (25904) Start: 17-Jun-2024 11:04-04:00 [facility] [employer]. Start: 10-08-2010 Patient Education Cholecystitis: cholecystitis Indication: Abdominal pain, right upper quadrant Start: 08-Oct-2010 Instruction Type: Patient Education [facility] [employer]. Alanine aminotransfe rase [Enzymatic activity/volume] in Serum or Plasma [facility] Albumin [Mass/volume ] in Serum or Plasma [facility] Alkaline phosphatase [Enzymatic activity/volume] in Serum or Plasma [facility] Bilirubin, total measurement [facility] Bilirubin.direct [Mass/volume] in Serum or Plasma [facility] Erythrocyte mean corpuscular volume determination [facility] Hematocrit [Volume Fraction] of Blood [facility] Hemoglobin [Mass/vol ume] in Blood [facility] INR in Blood by Coag ulation assay [facility] Leukocytes [#/volume ] in Blood [facility] Magnesium measurement [facility] Mean corpuscular hem oglobin concentration determination [facility] Mean corpuscular hem oglobin determination [facility] MG Breast - bilatera l Screening [facility] Partial thromboplast in time, activated [facility] Platelets [#/volume] in Blood [facility] Prothrombin time [facility] Red blood cell count [facility] Red cell distributio n width determination [facility] Thyroid stimulating hormone measurement [facility] Total protein measurement [facility] Payers Date Payer Category Payer Self-pay 2024 Unknown [id number] 1985 Unknown [id number] 2.16.8 [id number] 1985 Unknown [id number] 2.16.8 40.1.770703.3.579.2.651 1984 Unknown [id number] 2.16.8 40.1.813852.3.579.2.651 1984 Unknown [id number] 2.16.8 40.1.035938.3.579.2.651 1985 Unknown [id number] 2.16.8 40.1.716445.3.579.2.651 1985 Unknown [id number] 2.16.8 40.1.570862.3.579.2.651 1985 Unknown [id number] 2.16.8 40.1.555478.3.579.2.651 Self-pay [id number] Unknown Unknown [id number] 2.16.8 40.1.755368.3.579.2.462 Unknown [id number] 2.16.8 40.1.681280.3.579.2.462 Unknown [id number] 2.16.8 40.1.247274.3.579.2.462 Unknown [id number] 2.16.8 40.1.463658.3.579.2.462 Unknown [id number] 2.16.8 40.1.553276.3.579.2.462 Unknown [id number] 2.16.8 40.1.272720.3.579.2.462 Unknown [id number] 2.16.8 40.1.807781.3.579.2.462 Unknown [id number] 2.16.8 40.1.575313.3.579.2.462 Unknown [id number] 2.16.8 40.1.254464.3.579.2.462 Unknown [id number] 2.16.8 40.1.568599.3.579.2.462 Unknown [id number] 2.16.8 40.1.936460.3.579.2.462 Unknown [id number] 2.16.8 40.1.289726.3.579.2.462 Unknown [id number] 2.16.8 40.1.799362.3.579.2.462 Unknown [id number] 2.16.8 40.1.164015.3.579.2.462 Social History Date Type Detail Facility Child(hcris) [facility]chris) [facility] Tobacco Use: Tobacco Use: ; N ever smoker. [facility] [employer] [facility] Start: 1985 Female [facility] Start: 02-06-2025 End: 06-08-2025 Never smoked tobacco [facility] Gender Identity Identifies as fe male gender (finding) [facility] Sexual Orientation Heterosexual (finding) [facility] Mental Status Date Assessment Result Facility 06-12-2025 Cognitive function Awake;Alert;A ppropriate;Fol lows Commands [facility] Work Phone: 06-06-2025 Cognitive function Awake;Alert;A ppropriate;Fol lows Commands [facility] Work Phone: 06-01-2025 Cognitive function Awake;Alert;Appropriat e [facility] Work Phone: Clinical Notes 02-06-2025 to 06-12-2025 Note Date & Type Note Facility 06-12-2025 Note [facility] Medical Records Department [address] [place] [address] History Physical Exam 06/12/25 1542 MR#: [id number] Acct: [id number] Name: YOKO BARBA Rep #: [id number] : 1985 39 From: Maura Vargas MD PCP: NIALL Adame Status:PRE IN Location: [facility] History and Physical Date of Admission: 06/12/25 Vital Signs 03/20/2513:36 05/08/2511:01 Height 5 ft 1 in 5 ft 1 in Weight: 154 lb 8 oz BMI 29.2 BP 131/80 H Intake Visit Reasons: [facility] [employer] Machine Operator Required: No Is patient in pain?: Yes (pelvic pain and pressure) Allergies acetaminophen (From Vicodin) Adverse Reaction (Intermediate, Verified 05/04/25 12:30) Vomitinghydrocodone (From Vicodin) Adverse Reaction (Intermediate, Verified 05/04/25 12:30) Vomiting Medications ???Medication ???Instructions ???Recorded ???Confirmed ???Type thyroid (pork) 75 mg PO DAILY THYROID 02/06/25 05/08/25 History womens daily multivitamin 1 cap PO DAILY SUPPLEMENT 02/06/25 05/08/25 Histor y magnesium 250 mg tablet 250 mg PO DAILY SUPPLEMENT 05/04/25 05/08/25 Histo ry Is last menstrual period known: Yes Last Menstrual Period: 04/29/25 Post menopausal: No Patient : No : No [facility] Medical History Wears glasses Wears contact lenses Low iron Easy bruising Restless legs Back pain Syncope Heartburn Non-smoker History of irregular heartbeat Lyme disease Vitamin D deficiency disease Hailey thyroiditis Surgical History Hx of wisdom tooth extraction History of tonsillectomy and adenoidectomy S/P Family History Other Hypertension Thyroid disorder Social History adopted: No household members: family housing: house number of children: 2 current occupational status: employed 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 current occupational exposures/hazards: No pets and animals: Yes pets and animals: dog(s) history of recent travel: No sexually active: Yes Smoking Status: Never smoker second hand exposure: No alcohol intake: never substance use type: does not use well-balanced diet: about half the time caffeine: No eating out: 1-3 times/week during the past year weight has: decreased > 10 lbs what type of physical activity do you participate in: walking frequency: 5-6 times per week duration: 15-30 minutes/day brant/confucianism: Evangelical seatbelt use: always do you feel safe at home: Yes additional social history: - Azam HPI [facility] Details: YOKO BARBA is a 39 year old who presents for preop visit. She is a follow up from being diagnosed of an enlarged uterus and fibroid. she has a history of heavy menses lasting 2 week and heavy for years. she has a history of lyme disease. she struggles with this and has relapses with joint pain. she has a 16 weeks size uterus with a 10 cm fibroid, and has a history of severe scar tissue from her last cesaren section. she had a cbc and thyroid labs within the last few months at [facility] that was normal. EMB done and minimal tissue obtained Female Reproductive History Last Menstrual Period: 04/29/25 Questions: metorrhagia: No, sexually active: Yes, dyspareunia: No and PCB: No Menopausal Symptoms: No hot flashes, No night sweats, No weight change, No mood changes, No difficulty concentrating, No sleep problems and No change in libido History 3 Elective abortions Hx Para 2 Spontaneous abortions Hx # Term Pregnancies Ectopic pregnancies Hx # Pregnancies Multiple births # of living children 2 Past Pregnancies Del. Date Name GA/Weeks Outcome Route Bth Weight Infant Gen Labor Lgth Anesthesia Del Locatn Provider FOB Unknown 2007 Louden Male Unknown 2008 Britta Female ROS Const Constitutional: Denies fatigue, night sweats, weight gain or weight loss ENT ENT: Reports system reviewed and no additional complaints, except as documented Cardio Card: Denies chest pain Resp Resp: Denies cough or dyspnea GI GI: Reports as per HPI; Denies constipation, nausea or vomiting : Reports as per HPI; Denies hot flashes, nipple discharge, vaginal discharge, vaginal dryness, vaginal odor or vaginal pruritus Musc Musc: Denies arthralgias, back pain or muscle weakness Skin Skin/Breast: Denies alopecia, change in hair, dry skin, breast mass, breast pain, breast skin changes or nipple discharge Neuro Neuro: Reports system reviewed and no additional complaints, except as documented Psych Psych: Reports system reviewed and no additional complaints, except as documented; Denies verma (more content not included)... [facility] 05-11-2025 Radiology Diagnostic study note [facility] Imaging Services [address] [place], [place] [id number] Pelvic w/ Transvaginal MR#: [id number] Acct: [id number] Name: YOKO BARBA Rep #: [id number] : 1985 F 39 From: Josiah Valentin MD PCP: NIALL Adame Status: REG CLI Study:Pelvic w/ Transvaginal Date of Exam: 05/11/25 Exam# [id number] Ordering Dr: Maura Voss MD PROCEDURE: PELVIC W/ TRANSVAGINAL 05/11/2025 REASON FOR EXAM: FIBROIDS PRE-OP TECHNIQUE: PELVIC W/ TRANSVAGINAL COMPARISON: 03/11/2025. FINDINGS: Anteverted uterus measures 16.3 x 12.2 x 11.6 cm. Large fundal fibroid measuring 9.3 x 9.6 x 8.3 cm. The endometrium is obscured. Right ovary measures 3.7 x 2.4 x 2.2 cm with preserved vascular flow. No visualized ovarian mass. Left ovarian 3.6 x 2.0 x 2.1 cm with preserved vascular flow. There is dominantfollicle. No mass. No free fluid in the cul-de-sac. US/Pelvic w/ Transvaginal IMPRESSION: Large uterine fundal fibroid. Reading Location: [facility] CC: Dr. Maura Vargas MD; NIALL Adame ~ Metal Fabricator: Signed [facility] 05-08-2025 Progress note [facility] 03-20-2025 Evaluation note Diagnosis Onset Date Resolution Abnormal uterine bleeding acute March 20, 2025 1 :24pm Fibroid acute March 20, 2025 1:24pm Frequency of urination acute 2024 1:24pm Pelvic mass acute March 20 1:24pm Abnormal uterine bleeding acute May 08, 2025 10:56am Fibroid acute May 08 10:56am Frequency of urination acute 2024 10:56am Pelvic mass acute May 08 10:56am [facility] Work Phone: 1(909) 386-297805-24-2025 Radiology Diagnostic study note [facility] Imaging Services [address] [place], [place] [id number] Pelvic w/ Transvaginal MR#: [id number] Acct: [id number] Name: YOKO BARBA Rep #: [id number] : 1985 F 39 From: Willian Lam MD PCP: NIALL Adame Status: REG CLI Study:Pelvic w/ Transvaginal Date of Exam: 03/09/25 Exam# [id number] Ordering Dr: Joyce Boyce PROCEDURE: PELVIC W/ TRANSVAGINAL 03/09/2025 REASON FOR EXAM: UTERINE MASS TECHNIQUE: Transabdominal and transvaginal pelvic ultrasound FINDINGS: Transabdominal and transvaginal imaging. Enlarged uterus measures 14.5 x 10.9 x 10.1 cm and contains a heterogeneous massat the fundal portion measuring 9.2 x 10.2 x 8.5 cm consistent with a large fibroid. The endometrium is not visualized. Cervix appears within limits. The right ovary is not visualized. The left ovary measures 3.5 x 2.2 x 2.4 cm and appears within limits. No evidence of adnexal mass. No free fluid seen. Bladder volume 506 cc. US/Pelvic w/ Transvaginal IMPRESSION: Enlarged uterus measures 14.5 x 10.9 x 10.1 cm and contains a heterogeneous massat the fundal portion measuring 9.2 x 10.2 x 8.5 cm consistent with a large fibroid. The endometrium is not visualized. The right ovary is not visualized. No free fluid seen. Reading Location: [facility] CC: VIPUL Boyce; NIALL Adame ~ Metal Fabricator: Signed [facility]05-16-2025 Radiology Diagnostic study note [facility] Imaging Services [address] [place], [place] [id number] Abdomen/Pelvis WITH Contrast MR#: [id number] Acct: [id number] Name: YOKO BARBA Rep #: [id number] : 1985 F 39 From: Abiodun Méndez MD PCP: NIALL Adame Status: REG CLI Study:Abdomen/Pelvis WITH Contrast Date of Ex am: 03/02/25 Exam# [id number] Ordering Dr: Joyce Boyce PROCEDURE: ABDOMEN/PELVIS WITH CONTRAST 03/02/2025 REASON FOR EXAM: PELVIC MASS Right-sided abdominal pain. TECHNIQUE: Abdomen and pelvis CT with intravenous contrast. Coronal and Sagittal reconstruction series were provided. PATIENT PREPARATION: Per protocol ORAL CONTRAST TYPE: Oral contrast was given. CONTRAST: Isovue-300 VOLUME: 100 mL One or more dose reduction techniques were used (e.g., Automated exposure control, adjustment of the mA and/or kV according to patient size, use of iterative reconstruction technique. RADIATION DOSE SUMMARY: CTDlvol: 10 mGy DLP: 545.19 mGycm COMPARISON: None FINDINGS: Lung bases: Unremarkable Liver: Unremarkable Gallbladder: Unremarkable Spleen: Normal size. Pancreas: Normal size without evidence of mass surrounding inflammation or ductal dilation. Adrenals: Unremarkable Kidneys: Normal renal sizes. No hydronephrosis. Bladder: Unremarkable Reproductive Organs: Marked enlargement of the uterus in keeping with the large fibroid uterus. Bowel: Unremarkable Appendix: The appendix is not identified. There is no inflammatory process identified in the right lower quadrant to suggest appendicitis. Lymph nodes: Unremarkable. Vasculature: The abdominal aorta and IVC are normal. Peritoneum / Retroperitoneum: Unremarkable Bones: Limbus vertebrae along the superior anterior endplate of L5 vertebrae. CT/Abdomen/Pelvis WITH Contrast IMPRESSION: Markedly enlarged fibroid uterus. . Reading Location: [id number] CC: VIPUL Boyce; NIALL Adame ~ Metal Fabricator: Signed [facility]04-21-2025 Evaluation note* Diagnosis Onset Date Resolution Status Admit Date Frequency of urination acute Ap 2024 7:55am Pelvic mass acute February 06, 2 025 7:55am Vaginal dryness acute January 7:55am Encounter for routine gynecological examination noneactive February 06, 2025 7:55am [facility] Work Phone: 1(253) 885-785604-21-2025 Evaluation note* Diagnosis Onset Date Resolution Status Admit Date Frequency of urination acute Ap 5 7:55am Pelvic mass acute February 06 025 7:55am Vaginal dryness acute January 7:55am Encounter for routine gynecological examination noneactive February 06, 2025 7:55am Abnormal uterine bleeding acute March 20, 2025 1:24pm Fibroid acute March 20, 2025 1:24pm Frequency of urination acute Ju 2024 1:24pm Pelvic mass acute March 20 1:24pm [facility] Work Phone: [phone]) 165-680904-21-2025 Evaluation note* Diagnosis Onset Date Resolution Status Admit Date Frequency of urination acute Ap ril 2024 7:55am Pelvic mass acute February 06 025 7:55am Vaginal dryness acute January 7:55am Encounter for routine gynecological examination noneactive February 06, 2025 7:55am Abnormal uterine bleeding acute March 20, 2025 1:24pm Fibroid acute March 20, 2025 1:24pm Frequency of urination acute Ju 2024 1:24pm Pelvic mass acute March 20 1:24pm Abnormal uterine bleeding acute May 08, 2025 10:56am Fibroid acute May 08 10:56am Frequency of urination acute Ju 2024 10:56am Pelvic mass acute May 08 10:56am [facility] Work Phone: Progress note Author Maura Vargas [facility] Note Date/Time May 08, 2025 11:2 9am [facility] [address] [place] [address], [address] [place] [address] OFFICE VISIT Date of Service: 05/08/25 MR#: [id number] Acct: [id number] Name: YOKO BARBA Rep #: [id number] : 1985 Provider: Dr. 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 Is patient in pain?: Yes (pelvic pain and pressure) Allergies acetaminophen (From Vicodin) Adverse Reaction (Intermediate, Verified 05/04/25 12:30) Vomiting hydrocodone (From Vicodin) Adverse Reaction (Intermediate, Verified 05/04/25 12:30) Vomiting Medications ?Medication ?Instructions ?Recorded ?Confirmed ?Type thyroid (pork) 75 mg PO DAILY THYROID 02/0605/08/25 History womens daily multivitamin 1 cap PO DAILY SUPPLEMENT 05/08/25 History magnesium 250 mg tablet 250 mg PO DAILY SUPPLEMENT 0 05/04/25 05/08/25 History Is last menstrual period known: Yes Last Menstrual Period: 04/29/25 Post menopausal: No Patient : No : [facility] History Wears glasses Wears contact lenses Low iron Easy bruising Restless legs Back pain Syncope Heartburn Non-smoker History of irregular heartbeat Lyme disease Vitamin D deficiency disease Hailey thyroiditis Surgical History Hx of wisdom tooth extraction History of tonsillectomy and adenoidectomy S/P Family History Other Hypertension Thyroid disorder Social History adopted: No household members: family housing: house number of children: 2 current occupational status: employed 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 current occupational exposures/hazards: No pets and animals: Yes pets and animals: dog(s) history of recent travel: No sexually active: Yes Smoking Status: Never smoker second hand exposure: No alcohol intake: never substance use type: does not use well-balanced diet: about half the time caffeine: No eating out: 1-3 times/week during the past year weight has: decreased > 10 lbs what type of physical activity do you participate in: walking frequency: 5-6 times per week duration: 15-30 minutes/day brant/confucianism: Evangelical seatbelt use: always do you feel safe at home: Yes additional social history: - Azam CALDERÓN [facility] Details: YOKO BARBA is a 39 year old who presents for preop visit. She is a follow up from being diagnosed of an enlarged uterus and fibroid. she has a history of heavy menses lasting 2 week and heavy for years. she has a history of lyme disease. she struggles with this and has relapses with joint pain. she has a 16 weeks size uterus with a 10 cm fibroid, and has a history of severe scar tissue from her last cesaren section. she had a cbc and thyroid labs within the last few months at [facility] that was normal. EMB done and minimal tissue obtained Female Reproductive History Last Menstrual Period: 04/29/25 Questions: metorrhagia: No, sexually active: Yes, dyspareunia: No and PCB: No Menopausal Symptoms: No hot flashes, No night sweats, No weight change, No mood changes, No difficulty concentrating, No sleep problems and No change in libido History 3 Elective abortions Hx Para 2 Spontaneous abortions Hx # Term Pregnancies Ectopic pregnancies Hx # Pregnancies Multiple births # of living children 2 Past Pregnancies Del. Date Name GA/Weeks Outcome Route Bth Weight Gen Labor Lgth Anesthesia Del Locat Provider FOB Unknown 2007 [place] Male Unknown 2008 Britta Female ROS Const Constitutional: Denies fatigue, night sweats, weight gain or weight loss ENT ENT: Reports system reviewed and no additional complaints, except as documented Cardio Card: Denies chest pain Resp Resp: Denies cough or dyspnea GI GI: Reports as per HPI; Denies constipation, nausea or vomiting : Reports as per HPI; Denies hot flashes, nipple discharge, vaginal discharge, vaginal dryness, vaginal odor or vaginal pruritus Musc Musc: Denies arthralgias, back pain or muscle weakness Skin Skin/Breast: Denies alopecia, change in hair, dry skin, breast mass, breast pain, breast skin changes or nipple discharge Neuro Neuro: Reports system reviewed and no additional complaints, except as documented Psych Psych: Reports system reviewed and no additional complaints, except as documented; Denies change in libido or difficulty concentrating Endo Endo: Denies cold intolerance, excessive sweating, heat intolerance or polydipsia Werner/Lymph Hematologic/Lymphatic: Denies easy bleeding, Denies easy bruising and Denies lymphadenopathy Exam Const General: cooperative, healthy appearing, comfortable, no acute distress and welldeveloped Orientation: alert HENCA Head: normal to inspection and normocephalic Ears: hearing grossly normal bilaterally and external ears normal Nose: external nose normal and nares normal Face and sinus: normal facial exam Neck Neck: normal visual inspection and no lymphadenopathy Thyroid: thyroid normal Chest Chest palpation & inspection: normal inspection of the chest Resp Effort & Inspection: normal respiratory effort GI Inspection: normal to inspection and non-distended Palpation: soft, no hepatosplenomegaly and mass (16-18 week size fixed suprabpubic and 10 cm wide) General: bladder normal to palpation External Female Exam: normal external appearance and normal appearance of the urethra Urethra: normal appearance of the urethra, normal palpation and no discharge Speculum Exam - Vagina: normal appearance of the vagina and normal vaginal discharge Speculum Exam - Cervix: normal appearance of the cervix Bimanual Exam- Vagina & Uterus: bladder normal to palpation, displaced (anteriorly severely, wide particularly cervically), enlarged (16-18 week size),fixed (minimal movement, anteriorly displaced) and nodular Bimanual Exam- Adnexa, other: normal adnexae, adnexae mobile, no masses and normal Pelvic Support: normal Musc Other: gross motor intact no deficits, full bilateral strength Skin General: no rashes or lesions noted Neuro General: patient alert, patient awake, moves all extremities and no focal motor deficits Motor: muscle tone normal throughout Extrem General: normal to inspection and no pedal edema Psych Appearance: grossly normal Mental Status: mental status grossly normal Affect: normal affect Speech and Movement: speech and movement normal Coding Level of Care Code No Charge Diagnoses Abnormal uterine bleeding N93.9 Fibroid D21.9 Pelvic mass R19.00 Frequency of urination R35.0 Assessment and Plan Assessment and Plan (1) Abnormal uterine bleeding: Status: Acute Comment: secondary to fibroid. nl cbc tsh EMB attempted (2) Fibroid: Status: Acute Comment: will discuss with JV- TRH vs RAMÓN, extensive history of scar tissue (3) Pelvic mass: Status: Acute Comment: greater than 6 months (4) Frequency of urination: Status: Acute Plan After discussing the patient's diagnosis and treatment plan options, patient wishes to proceed with surgical management. I have discussed with the patient the risks, benefits, and alternatives of the procedure which include but are notlimited to risks of anesthesia, bleeding, infection, possible damage to bowel, bladder, or surrounding vasculature which could lead to additional surgery to evaluate any complications. Patient agrees to procedure and wishes to proceed. ACOG/uptodate references given for additional information regarding procedure. 05/08/25 1129 <Electronically signed by Maura jernigan MD> Date _ Maura Vargas MD Cosigner Signature: Date (if applicable) CC: ~ [facility] Work Phone: Reason for referral (narrative)No reason for referral information availableWLake County Memorial [facility] Work Phone: Summary Purpose Family History No Family History Records Found Relationship Condition Age at Onset Recorded Date/T yevgeniy Not Specified Hypertension Unknown Disorder of thyroid Unknown Advance Directives No Advanced Directives Records FoundNo Advanced Directives Records FoundNo Advanced Directives Records FoundNo Advanced Directives Records FoundNo Advanced Directives Records FoundNo Advanced Directives Records Found Chief Complaint and Reason for Visit Chief Complaint 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, 2025 7:5 5am screening February 06, 2025 12: 27pm PELVIC MASS March 02, 2025 1:47p m Reason for Visit Admit Date Frequency of urination February 06, 2025 7:55am Pelvic mass February 06, 2025 7:5 5am Vaginal dryness February 06, 2025 7:5 5am Encounter for routine gynecological exam ination February 06, 2025 7:55am Chief Complaint 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, 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 7:5 5am screening February 06, 2025 12: 27pm PELVIC MASS March 02, 2025 1:47p m UTERINE MASS March 09, 2025 12:48 pm Chief Complaint 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, 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 7:5 5am screening February 06, 2025 12: 27pm PELVIC MASS March 02, 2025 1:47p m UTERINE MASS March 09, 2025 12:48 pm discuss large fibroid *$25 copay March 1:24pm Chief Complaint 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, 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 7:5 5am screening February 06, 2025 12: 27pm PELVIC MASS March 02, 2025 1:47p m UTERINE MASS March 09, 2025 12:48 pm discuss large fibroid *$25 copay March 1:24pm ABNORMAL UTERINE BLEEDING March 20, 2025 4:02pm Reason for Visit Admit Date Frequency of urination February 06, 2025 7:55am Pelvic mass February 06, 2025 7:5 5am Vaginal dryness February 06, 2025 7:5 5am Encounter for routine gynecological exam ination February 06, 2025 7:55am Abnormal uterine bleeding March 20, 2025 1:24pm Fibroid March 20, 2025 1:24p m Frequency of urination March 20, 2025 1: 24pm Pelvic mass March 20, 2025 1:24p m Chief Complaint 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, 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 7:5 5am screening February 06, 2025 12: 27pm PELVIC MASS March 02, 2025 1:47p m UTERINE MASS March 09, 2025 12:48 pm discuss large fibroid *$25 copay March 1:24pm ABNORMAL UTERINE BLEEDING March 20, 2025 4:02pm RAMÓN May 08, 2025 10:5 6am Reason for Visit Admit Date Frequency of urination February 06, 2025 7:55am Pelvic mass February 06, 2025 7:5 5am Vaginal dryness February 06, 2025 7:5 5am Encounter for routine gynecological exam ination February 06, 2025 7:55am Abnormal uterine bleeding March 20, 2025 1:24pm Fibroid March 20, 2025 1:24p m Frequency of urination March 20, 2025 1: 24pm Pelvic mass March 20, 2025 1:24p m Abnormal uterine bleeding May 08 10:56am Fibroid May 08, 2025 10:5 6am Frequency of urination May 08, 2025 1 0:56am Pelvic mass May 08, 2025 10:5 6am Chief Complaint 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, 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 7:5 5am screening February 06, 2025 12: 27pm PELVIC MASS March 02, 2025 1:47p m UTERINE MASS March 09, 2025 12:48 pm discuss large fibroid *$25 copay March d2024 1:24pm ABNORMAL UTERINE BLEEDING March 20, 2025 4:02pm RAMÓN May 08, 2025 10:5 6am FIBROIDS PRE OP May 11, 2025 2:20 pm Chief Complaint 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, 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 7:5 5am screening February 06, 2025 12: 27pm PELVIC MASS March 02, 2025 1:47p m UTERINE MASS March 09, 2025 12:48 pm discuss large fibroid *$25 copay March d2024 1:24pm ABNORMAL UTERINE BLEEDING March 20, 2025 4:02pm RAMÓN May 08, 2025 10:5 6am FIBROIDS PRE OP May 11, 2025 2:20 pm 300MG VENOFER June 01, 2025 8: 52am Chief Complaint Admit Date PELVIC MASS March 02, 2025 1:47p m UTERINE MASS March 09, 2025 12:48 pm discuss large fibroid *$25 copay March 1:24pm ABNORMAL UTERINE BLEEDING March 20, 2025 4:02pm RAMÓN May 08, 2025 10:5 6am FIBROIDS PRE OP May 11, 2025 2:20 pm 300MG VENOFER June 01, 2025 8: 52am 300MG VENOFER June 06, 2025 8: 52am Reason for Visit Admit Date Abnormal uterine bleeding March 20, 2025 1:24pm Fibroid March 20, 2025 1:24p m Frequency of urination March 20, 2025 1: 24pm Pelvic mass March 20, 2025 1:24p m Abnormal uterine bleeding May 08 10:56am Fibroid May 08, 2025 10:5 6am Frequency of urination May 08, 2025 1 0:56am Pelvic mass May 08, 2025 10:5 6am Chief Complaint Admit Date PELVIC MASS March 02, 2025 1:47p m UTERINE MASS March 09, 2025 12:48 pm discuss large fibroid *$25 copay March 1:24pm ABNORMAL UTERINE BLEEDING March 20, 2025 4:02pm RAMÓN May 08, 2025 10:5 6am FIBROIDS PRE OP May 11, 2025 2:20 pm 300MG VENOFER June 01, 2025 8: 52am 300MG VENOFER June 06, 2025 8: 52am 300MG VENOFER June 12, 2025 8: 51am Hysterectomy,RAMÓN June 12, 2025 3: 42pm Additional Source Comments INFORMATION SOURCE (unrecogn ized section and content) DATE CREATED AUTHOR 03/18/2019 [facility] DATE CREATED AUTHOR AUTHOR'S ORGANIZ ATION 07/17/[address] [facility] ([place]) DATE CREATED AUTHOR AUTHOR'S ORGANIZ ATION 06/23/2024 [facility] DATE CREATED AUTHOR AUTHOR'S ORGANIZ ATION 10/16/2024 [facility] DATE CREATED AUTHOR AUTHOR'S ORGANIZ ATION 05/25/2025 [facility] DATE CREATED AUTHOR AUTHOR'S ORGANIZ ATION 06/13/2025 [facility] Care Teams (unrecognized sec tion and content) Team Status: Active Member Role Status Dates NIALL Adame Primary Care Provider Active Team Status: Inactive Member Role Status Dates Dr. Jessica Perez MD Primary Care Provider Active Start: February 06, 2025 End: February 06, 2025 Dr. Jessica Perez MD Referring Provider Active St art: February 06, 2025 End: February 06, 2025 VIPUL Rico Attending Provider Active Start: February 06, 2025 End: February 06, 2025 Team Status: Inactive Member Role Status Dates Dr. Jessica Perez MD Primary Care Provider Active Start: February 06, 2025 End: February 06, 2025 VIPUL Rico Attending Provider Active Start: February 06, 2025 End: February 06, 2025 Team Status: Inactive Member Role Status Dates VIPUL Rico Attending Provider Active Start: March 02, 2025 End: March 02, 2025 VIPUL Rico Referring Provider Active Start: March 02, 2025 End: March 02, 2025 NIALL Adame Primary Care Provider Active S tart: March 02, 2025 End: March 02, 2025 Team Status: Inactive Member Role Status Dates NIALL Adame Primary Care Provider Active S tart: March 09, 2025 End: March 09, 2025 VIPUL Rico Attending Provider Active Start: March 09, 2025 End: March 09, 2025 VIPUL Rico Referring Provider Active Start: March 09, 2025 End: March 09, 2025 Team Status: Inactive Member Role Status Dates NIALL Adame Primary Care Provider Active S tart: March 20, 2025 End: March 20, 2025 NIALL Adame Referring Provider Active Star t: March 20, 2025 End: March 20, 2025 Dr. Maura Vargas MD Attending Provider Active Start: March 20, 2025 End: March 20, 2025 Team Status: Inactive Member Role Status Dates NIALL Adame Primary Care Provider Active S tart: March 20, 2025 End: March 20, 2025 Dr. Maura Vargas MD Attending Provider Active Start: March 20, 2025 End: March 20, 2025 Dr. Maura Vargas MD Referring Provider Active Start: March 20, 2025 End: March 20, 2025 Team Status: Active Member Role/Relationship Status Dates NIALL Adame Primary Care Provider Active Team Status: Inactive Member Role/Relationship Status Dates Dr. Jessica Perez MD Primary Care Provider Active Start: February 06, 2025 End: February 06, 2025 Dr. Jessica Perez MD Referring Provider Active St art: February 06, 2025 End: February 06, 2025 VIPUL Rico Attending Provider Active Start: February 06, 2025 End: February 06, 2025 Team Status: Inactive Member Role/Relationship Status Dates Dr. Jessica Perez MD Primary Care Provider Active Start: February 06, 2025 End: February 06, 2025 VIPUL Rico Attending Provider Active Start: February 06, 2025 End: February 06, 2025 Team Status: Inactive Member Role/Relationship Status Dates VIPUL Rico Attending Provider Active Start: March 02, 2025 End: March 02, 2025 IVPUL Rico Referring Provider Active Start: March 02, 2025 End: March 02, 2025 NIALL Adame Primary Care Provider Active S tart: March 02, 2025 End: March 02, 2025 Team Status: Inactive Member Role/Relationship Status Dates NIALL Adame Primary Care Provider Active S tart: March 09, 2025 End: March 09, 2025 VIPUL Rico Attending Provider Active Start: March 09, 2025 End: March 09, 2025 VIPUL Rico Referring Provider Active Start: March 09, 2025 End: March 09, 2025 Team Status: Inactive Member Role/Relationship Status Dates Jair Soto , PA Primary Care Provider Active S tart: March 20, 2025 End: March 20, 2025 Jair Soto , [place] Referring Provider Active Star t: March 20, 2025 End: March 20, 2025 Dr. Maura Vargas MD Attending Provider Active Start: March 20, 2025 End: March 20, 2025 Team Status: Inactive Member Role/Relationship Status Dates Jair Soto , [place] Primary Care Provider Active S tart: March 20, 2025 End: March 20, 2025 Dr. Maura Vargas MD Attending Provider Active Start: March 20, 2025 End: March 20, 2025 Dr. Maura Vargas MD Referring Provider Active Start: March 20, 2025 End: March 20, 2025 Team Status: Inactive Member Role/Relationship Status Dates Jair Soto , [place] Primary Care Provider Active S tart: May 08, 2025 End: May 08, 2025 Jair Soto , [place] Referring Provider Active Star t: May 08, 2025 End: May 08, 2025 Dr. Maura Vargas MD Attending Provider Active Start: May 08, 2025 End: May 08, 2025 Team Status: Active Member Role/Relationship Status Dates Jair Soto , [place] Primary Care Provider Active S tart: May 08, 2025 Dr. Maura Vargas MD Attending Provider Active Start: May 08, 2025 Dr. Maura Vargas MD Referring Provider Active Start: May 08, 2025 Team Status: Inactive Member Role/Relationship Status Dates Jair Soto , [place] Primary Care Provider Active S tart: May 08, 2025 End: May 08, 2025 Dr. Maura Vargas MD Attending Provider Active Start: May 08, 2025 End: May 08, 2025 Dr. Maura Vargas MD Referring Provider Active Start: May 08, 2025 End: May 08, 2025 Team Status: Active Member Role/Relationship Status Dates Jairashvin Soto , [place] Primary Care Provider Active S tart: May 11, 2025 Dr. Maura Vargas MD Attending Provider Active Start: May 11, 2025 Dr. Maura Vargas MD Referring Provider Active Start: May 11, 2025 Team Status: Inactive Member Role/Relationship Status Dates NIALL Adame Primary Care Provider Active S tart: May 11, 2025 End: May 11, 2025 Dr. Maura Vargas MD Attending Provider Active Start: May 11, 2025 End: May 11, 2025 Dr. Maura Vargas MD Referring Provider Active Start: May 11, 2025 End: May 11, 2025 Team Status: Inactive Member Role/Relationship Status Dates NIALL Adame Primary Care Provider Active S tart: June 01, 2025 End: June 01, 2025 Dr. Maura Vargas MD Attending Provider Active Start: June 01, 2025 End: June 01, 2025 Dr. Maura Vargas MD Referring Provider Active Start: June 01, 2025 End: June 01, 2025 Team Status: Inactive Member Role/Relationship Status Dates XOCHILT RicoC Attending Provider Active Start: March 02, 2025 End: March 02, 2025 Joyce Boyce NP-Estella Referring Provider Active Start: March 02, 2025 End: March 02, 2025 NIALL Adame Primary Care Provider Active S tart: March 02, 2025 End: March 02, 2025 Team Status: Inactive Member Role/Relationship Status Dates NIALL Adame Primary Care Provider Active S tart: March 09, 2025 End: March 09, 2025 Joyce Boyce NP-C Attending Provider Active Start: March 09, 2025 End: March 09, 2025 Joyce Boyce NP-Estella Referring Provider Active Start: March 09, 2025 End: March 09, 2025 Team Status: Inactive Member Role/Relationship Status Dates NIALL Adame Primary Care Provider Active S tart: March 20, 2025 End: March 20, 2025 Jair Soto PA Referring Provider Active Star t: March 20, 2025 End: March 20, 2025 Dr. Maura Vargas MD Attending Provider Active Start: March 20, 2025 End: March 20, 2025 Team Status: Inactive Member Role/Relationship Status Dates Jair Soto , PA Primary Care Provider Active S tart: March 20, 2025 End: March 20, 2025 Dr. Maura Vargas MD Attending Provider Active Start: March 20, 2025 End: March 20, 2025 Dr. Maura Vargas MD Referring Provider Active Start: March 20, 2025 End: March 20, 2025 Team Status: Inactive Member Role/Relationship Status Dates Jair Soto , [place] Primary Care Provider Active S tart: May 08, 2025 End: May 08, 2025 Jair Soto , [place] Referring Provider Active Star t: May 08, 2025 End: May 08, 2025 Dr. Maura Vargas MD Attending Provider Active Start: May 08, 2025 End: May 08, 2025 Team Status: Inactive Member Role/Relationship Status Dates Jair Soto , [place] Primary Care Provider Active S tart: May 08, 2025 End: May 08, 2025 Dr. Maura Vargas MD Attending Provider Active Start: May 08, 2025 End: May 08, 2025 Dr. Maura Vargas MD Referring Provider Active Start: May 08, 2025 End: May 08, 2025 Team Status: Inactive Member Role/Relationship Status Dates Jair Soto , [place] Primary Care Provider Active S tart: May 11, 2025 End: May 11, 2025 Dr. Maura Vargas MD Attending Provider Active Start: May 11, 2025 End: May 11, 2025 Dr. Maura Vargas MD Referring Provider Active Start: May 11, 2025 End: May 11, 2025 Team Status: Inactive Member Role/Relationship Status Dates Jair Soto , [place] Primary Care Provider Active S tart: June 01, 2025 End: June 01, 2025 Dr. Maura Vargas MD Attending Provider Active Start: June 01, 2025 End: June 01, 2025 Dr. Maura Vargas MD Referring Provider Active Start: June 01, 2025 End: June 01, 2025 Team Status: Inactive Member Role/Relationship Status Dates Jairashvin Soto , [place] Primary Care Provider Active S tart: June 06, 2025 End: June 06, 2025 Dr. Maura Vargas MD Attending Provider Active Start: June 06, 2025 End: June 06, 2025 Dr. Maura Vargas MD Referring Provider Active Start: June 06, 2025 End: June 06, 2025 Team Status: Inactive Member Role/Relationship Status Dates NIALL Adame Primary Care Provider Active S tart: June 12, 2025 End: June 12, 2025 Dr. Maura Vargas MD Attending Provider Active Start: June 12, 2025 End: June 12, 2025 Dr. Maura Vargas MD Referring Provider Active Start: June 12, 2025 End: June 12, 2025 Team Status: Active Member Role/Relationship Status Dates NIALL Adame Primary Care Provider Active S tart: June 12, 2025 Dr. Maura Vargas MD Admit Provider Active Start: June 12, 2025 Dr. Maura Vargas MD Attending Provider Active Start: June 12, 2025 Dr. Maura Vargas MD Other Provider Active Start: June 12, 2025 Goals (unrecognized section and content) Goals may be documented in a n alternate sectionGoals may be documented in an alternate sectionGoals may be documented in an alternate sectionGoals may be documented in an alternate sectionGoals may be documented in an alternate sectionGoals may be documented in an alternate sectionGoals may be documented in an alternate sectionGoals may be documented in an alternate sectionGoals may be documented in an alternate sectionGoals may be documented in an alternate section FOR RECORDS PERTAINING TO PATIENTS WHO ARE OR HAVE BEEN ENROLLED IN A CHEMICAL DEPENDENCY/SUBSTANCEABUSE PROGRAM, SOME INFORMATION MAY BE OMITTED. This clinical summary was aggregated from multiple sources. Caution should be exercised in using it in the provision of clinical care. This summary normalizes information from multiple sources, and as a consequence, information in this document may materially change the coding, format and clinical context of patient data. In addition, data may be omitted in some cases. CLINICAL DECISIONS SHOULD BE BASED ON THE PRIMARY CLINICAL RECORDS. [employer] [facility]. provides no warranty or guarantee of the accuracy or completeness of information in this document.
[2025-06-13 06:18] LABS: Internal QC Validated? YES +Cl - CLEAR BKGD
[2025-06-13 06:19] LABS: Pregnancy, Urine Negative Negative; Record Kit Lot#,Urine Preg 0000962302
[2025-06-13] MEDS: Magnesium 1 GM over 15 mins IV (06:50)
[2025-06-13] MEDS: Lactated Ringers 1,000 ML 40 ML IV (06:50)
[2025-06-13 06:56] LABS: Hematocrit 38.8 % (37-47); Hemoglobin 11.4 g/dL (12.0-15.0); Mean Corp Hgb Conc 29.4 g/dL (32-36); Mean Corpuscular Volume 77.0 fL (81-99); Mean Platelet Vol. 9.2 fl (6.2-12.0); POSITIVE MORPHOLOGY YES; Platelet Count 380 K/mm3 (150-450); Red Blood Count 5.04 M/mm3 (4.2-5.4); White Blood Count 4.1 K/mm3 (4.4-11.0)
[2025-06-13 07:01] LABS: Scan Indicated on CBC? Y/N YES- FLAGS NOTED
--- NOTE | 2025-06-13 07:18 | PCM.PRE.AN2 ---
ASA Classification* ASA Classification ASA Classification: 2 Assessment & Plan Anesthesia* Anesthesia Assessment Anesthesia Assessment: Discussed sedation and/or anesthesia options, risks, benefits, and alternatives with patient/parents/legal guardian/POA. Questions invited. The patient/parents/legal guardian/POA seems to understand and agrees to proceed with anesthesia plan. Reviewed the physical assessment, medical history, allergy history and patient home medications list prior to surgery/procedure/anesthetic and documented any changes. Performed airway and anesthesia risk assessments. Anesthesia Type Anesthesia Type: General History Source History Obtained from:: Patient and Chart Anesthesia Focused Assessment* Temperature: 98.4 F Pulse Rate: 83 Blood Pressure: 121/85 Respiratory Rate: 18 Pulse Ox: 100 Oxygen Delivery Method: Room Air Airway Assessment Mouth opens: >3 cm Mallampati Score: II Teeth Condition: Intact Neck Range of motion (ROM): Full ROM Labs Anesthesia Preop lab: CBC WBC 4.1 K/mm3 (4.4-11.0) L 06/13/25 06:45 06/13/25 RBC 5.04 M/mm3 (4.2-5.4) 06/13/25 06:45 06/13/25 Hgb 11.4 g/dL (12.0-15.0) L 06/13/25 06:45 06/13/25 Hct 38.8 % (37-47) 06/13/25 06:45 06/13/25 Plt Count 380 K/mm3 (150-450) 06/13/25 06:45 06/13/25 CHEMISTRY Magnesium 2.1 mg/dL (1.5-2.2) 05/08/25 11:44 05/08/25 TSH 6.810 uIU/mL (0.300-4.200) H 05/08/25 11:44 05/08/25 COAG PT 13.1 SECONDS (11.7-14.9) 05/08/25 11:44 05/08/25 Urine Test Negative Negative 06/13/25 05:45 06/13/25 Pre-Assessment Diagnosis/Proposed Procedure Planned Operative Procedure(s): RAMÓN BSO Anesthesia History 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 When Was Last Pacemaker Check QUESTION #4 FULL TEXT: You/Your Family Experience fever (hyperthermia) with Anesthesia Last Oral Intake Last Oral intake: Last Oral Intake NPO since 19:00 06/13/25 06:20 Meds taken in AM with sips of Yes 06/13/25 06:20 water? 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 Female Yes 06/08/25 12:01 HX of Motion Sickness Yes 06/08/25 12:01 HX of N/V After Surgery No 06/08/25 12:01 Non-Smoker Yes 06/08/25 12:01 Duration of Surgery greater Yes 06/08/25 12:01 than 60 minutes Number of Risk Factors 4 06/08/25 12:01 PONV Score Severe Risk 06/08/25 12:01 Height & Weight Height & Weight: Anesthesia: Height & Weight Height 5 ft 1 in 06/13/25 06:20 Weight: 69 kg 06/13/25 06:20 Body Mass Index (BMI) 28.7 06/13/25 06:20 Respiratory Assessment Respiratory Assessment - supervisor aircraft maintenance: Respiratory Tract Infection Hx - supervisor aircraft 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 Has anyone observed you stop No 06/08/25 12:01 breathing during sleep? STOP Results Positive 06/08/25 12:01 QUESTION #5 FULL TEXT : Do you snore loudly (louder than talking or can be heard through closed doors)? 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 Specify any problems Hx of Preganancy in last 3 No 06/08/25 12:01 Months Nurse Filling Out Transfusion VLEHCON[facility]ORD 06/08/25 12:01 & Questions: Date: 06/08/25 06/08/25 12:01 Time: 12:01 06/08/25 12:01 Patient unable to answer at this time (ie. 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: /Reproductive Hx- supervisor aircraft maintenance Hx Now No 06/08/25 12:01 Gestational Age (in weeks): EDC: Hx Hx Para Hx Section SAB No 06/08/25 12:01 Active Medications Active Medications: Current Medications Generic Name Dose Route Start Last Admin Trade Name Danielq PRN Reason Stop Dose Admin Acetaminophen 1,000 mg 06/13/25 07:30 06/13/25 06:50 Acetaminophen 500 Mg Tablet PO 06/13/25 07:31 1,000 mg PREOP ONE Administration Gabapentin 600 mg 06/13/25 07:30 06/13/25 06:50 Gabapentin 600 Mg Tablet PO 06/13/25 07:31 600 mg PREOP ONE Administration Lactated Ringer's 1,000 mls @ 40 mls/hr 06/13/25 07:30 06/13/25 06:50 IV 40 mls/hr .Q25H ISAAC Administration Cefazolin Sodium 2 gm/ Sodium 110 mls @ 150 mls/hr 06/13/25 07:30 Chloride IV 06/13/25 08:13 INTRAOP ONE Insulin Human Lispro 0 unit 06/13/25 07:30 Insulin Lispro 100 Unit/Ml Insuln.Pen SC 06/13/25 18:00 Q4H PRN PRN BG >/= 180, SEE PROTOCOL Protocol Ondansetron HCl 4 mg 06/13/25 07:30 Ondansetron 4 Mg/2 Ml Vial IV 06/13/25 07:31 INTRAOP ONE PFSH Medical History Wears glasses Wears contact lenses Low iron Easy bruising Restless legs Back pain Syncope Heartburn Non-smoker History of irregular heartbeat Lyme disease Vitamin D deficiency disease Hailey thyroiditis Home Medications ?Medication ?Instructions ?Recorded ?Last Taken ?Type womens daily multivitamin 1 cap PO DAILY SUPPLEMENT 02/06/25 06/12/25 History magnesium 250 mg tablet 250 mg PO DAILY SUPPLEMENT 05/04/25 06/12/25 History megestrol 20 mg tablet 20 mg PO BID abnormal uterine 05/08/25 06/12/25 Rx bleeding #45 tabs thyroid (pork) [[place] Thyroid] 90 mg PO DAILY THYROID 05/11/25 06/13/25 History Allergy/AdvReac Type Severity Reaction Status Date / Time hydrocodone (From Vicodin) AdvReac Intermediate Vomiting Verified 06/13/25 06:10 Family History Other Hypertension Thyroid disorder Surgical History Hx of wisdom tooth extraction History of tonsillectomy and adenoidectomy S/P Social History adopted: No household members: family housing: house number of children: 2 current occupational status: employed 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 current occupational exposures/hazards: No pets and animals: Yes pets and animals: dog(s) history of recent travel: No sexually active: Yes Smoking Status: Never smoker second hand exposure: No alcohol intake: never substance use type: does not use well-balanced diet: about half the time caffeine: No eating out: 1-3 times/week during the past year weight has: decreased > 10 lbs what type of physical activity do you participate in: walking frequency: 5-6 times per week duration: 15-30 minutes/day brant/buddhist: Sabianism seatbelt use: always do you feel safe at home: Yes additional social history: - Azam Review of Systems (Anesthesia) ROS Narrative System reviewed and no additional complaints, except as documented.
[2025-06-13] MEDS: Midazolam 2 MG/2 ML Syringe IV (07:28)
[2025-06-13] MEDS: Cefazolin 1 GM/5 ML Vial 2 GM IV (07:30)
--- NOTE | 2025-06-13 07:30 | UT_PTH ---
PATIENT: YOKO BARBA LOC: MS3 U#:[id number] AGE/SX: 39/F ROOM: MS316 RE06/13/[address]: Dr. Maura Sequeira MD : 1985 BED: 1 DIS: 06/14/2025 SPEC #: [id number] RECD: 06/13/25 10:01 STATUS: DONALD EMEKA #: [id number] HUY: 06/13/25 07:[address]: Maura Sequeira DEPT: SURGICAL PATHOLOGY RECD BY: Thierry Joya ENTERED: 06/13/25 10:34 SP TYPE: UTERUS OTHR DR: NIALL Adame Tissues: A - Uterus, NOS Procedures: Surgery Specimen Level V HEADER OPERATION: ERAS, total abdominal hysterectomy, bilateral salpingectomy PRE-OP DIAGNOSIS: Abnormal uterine bleeding, fibroid, pelvic mass, frequency of urination TISSUE SUBMITTED: A- Uterus, cervix, bilateral fallopian tubes MICROSCOPIC DIAGNOSIS A. Uterus, uterine cervix, bilateral fallopian tubes, total abdominal hysterectomy and bilateral salpingectomies: * Squamous metaplasia and chronic cystic endocervicitis of the uterine cervix * Extensive decidual alteration of the endometrial stroma, suggesting progesterone therapy with a focus of adenomatous hyperplasia without dysplasia * Intramural and subserosal leiomyomata of the uterine fundus * Full thickness segments of two fallopian tubes with a paratubal cyst of the longer fallopian tube MICROSCOPIC DESCRIPTION Slides are reviewed. GROSS DESCRIPTION A. Received in formalin labeled with the patient's name and date of . Designated as uterus, cervix, bilateral fallopian tubes is a 843 g, 15.5 x 11.2 x 11.1 cm irregular, distorted and somewhat bulbous uterus with detached adnexa. The serosa is singh-pink and glistening with focal adhesions and subserosal myomas. The attached cervix is singh and focally erythematous, measuring 2.2 x 2.2 cm; the 0.3 cm os is probe patent. The specimen is inked as follows: [id number]-measoIacsibaswul-orange. The fundus contains an 8.8 cm intramural myoma compressing and distorting the endometrial canal which measures approximately 9.2 x 5.0 cm; it is filled with clotted blood and is lined by singh-pink somewhat granular endometrium, measuring up to 0.4 cm. The myometrium is singh-pink trabeculated and distorted by multiple intramural myomas and measures up to 2.7 cm thick. The purple-red bilateral fallopian tubes are fimbriated and devoid of orientation, measuring 8.8 x 0.6 cm and 6.3 x 0.6 cm. The longer fallopian tube has a few paratubal cysts, 0.1 cm to 0.4 cm. Automotive Power Electronics Engineer sections are submitted as follows: A1: Anterior cervixA2: Posterior cervixA3-A4: Anterior endometrium and myometriumA5: Posterior endometrium and myometriumA6: Longer fallopian tube with paratubal cysts A7: [place] fallopian tubeA8-A9: Largest intramural [id number]: Subserosal leiomyoma VT 06/13/2025 CPT:74730
[2025-06-13] MEDS: Lidocaine 1% (5 ml sdv) 5 ML Vial 10 ML IV (07:33)
[2025-06-13] MEDS: DiphenhydrAMINE 50 MG/ML Syringe 12.5 MG IV (08:00)
[2025-06-13] MEDS: fentaNYL 100 MCG/2 ML Ampul IV (08:06)
[2025-06-13] MEDS: BUPIVACAINE LIPOSOME/PF 20 ML VIAL OPERA.SITE (09:22)
--- NOTE | 2025-06-13 09:56 | PCM.POST.ANE ---
Anesthesia: Postop Eval I Current Vital Signs Temperature: 98.7 F Pulse Rate: 86 Blood Pressure: 102/59 Respiratory Rate: 16 Pulse Ox: 100 Oxygen Delivery Method: Room Air Assessment Airway patent: Yes Spontaneous unlabored respirations: Yes Mental status: Awake and Calm nausea: No Vomiting: No Anesthesia Complication: No Fluid Hydration Crystalloid volume administer (ml): 1,200 Total IV fluid infused: 1,200 Progress Note Anesthesia document: Postop Eval 1 completed: Yes
[2025-06-13] MEDS: Ketorolac 30 MG/ML Syringe IV ×2 (12:15→18:24)
[2025-06-13] MEDS: 0.9% Saline Lock 10 ML Syringe IV ×3 (12:15→18:24)
[2025-06-13] MEDS: Lactated Ringers 1,000 ML 70 ML IV ×2 (12:34→18:41)
--- NOTE | 2025-06-13 13:38 | PCM.OPRPT ---
Problems Associated Problem List Diagnoses (1) Abnormal uterine bleeding: (2) Fibroid: (3) Anemia: Multi Select Codes Urinary/Genital Urinary/Genital CPT Codes: 02938 [facility] Operative Report (Standard) Operative Information Date of Procedure: 06/13/25 Pre-Operative Diagnosis: see problem list Post-Operative Diagnosis: same Surgery/Procedure Performed: Total abdominal hysterectomy bilateral salpingectomy audiology director: Yes Yard Goods Salesperson: Ying Plata Tasks completed by first coat sander: Closing and Retracting Type of Anesthesia: General RN Documented Start/Stop Times: Operation Date: 06/13/25 07:30 Case Time Into Pre-Op 06/13/25 05:56 Out of Pre-Op 06/13/25 07:25 Anesthesia Start 06/13/25 07:27 Into Room 06/13/25 07:27 Procedure Start 06/13/25 08:01 Procedure End 06/13/25 09:41 Anesthesia End 06/13/25 09:51 Out of Room 06/13/25 09:51 Into Recovery 06/13/25 09:53 Out of Recovery 06/13/25 11:48 Procedure Start Time: 08:01 Procedure Stop Time: 09:41 Select all DRAINS/GRAFTS/IMPLANTS that apply: Drains (juares) Drain details: clear urine at end of procedure Estimated Blood Loss: 200 Specimen collected: Yes Description of specimen(s) removed: uterus tubes Description of surgery: The patient was taken to the operating room and placed under general anesthesia in the dorsal supine position. She was prepped and draped in the normal sterile fashion. Juares catheter was placed in the bladder SCDs were on and preoperative antibiotics were given. A Pfannenstiel skin incision was made with the scalpel and carried through the underlying layer of the fascia with the scalpel, fascia was nicked in the midline, incision extended laterally. Rectus bellies were dissected off superiorly and inferiorly sharply and bluntly, with the bovie, significant scarring of the abdominal wall encountered but taken down, and peritoneum entered digitally, incision stretched laterally and the retractor was placed after the bowel was packed away. The uterus was identified and noted to be significantly enlarged approximately 18 cm. The ovaries were noted to be within normal limits. The fallopian tubes were elevated bilaterally and the mesosalpinx transected with the ligasure and cut. The round ligaments were transected bilaterally with the ligasure and cut and the broad ligament was opened up and the utero-ovarian ligament vessels were double clamped cut and suture ligated with 0 Monocryl. The bladder flap was created taking down the vesicouterine peritoneum and the uterine vessels, cardinal ligaments, and remaining uterine vessels were skeletonized and either transected with the ligasure or clamped cut and suture ligated with 0 Monocryl bilaterally. Good attention was paid to keep the bladder inferior to the clamps and dissected off of the cervix and lower uterine corpus. The clamps were then placed underneath the cervix bilaterally the uterus amputated off of the vaginal stump and the vaginal cuff was suture ligated with 0 vicryl [id number] sutures ?3. Excellent hemostasis was noted with some raw appearance which was covered with hemoblast after irrigation. all instruments were removed from the abdomen and the peritoneum was closed with 3-0 Monocryl, fascia closed with 0 PDS, subcutaneous tissue reapproximated with 3-0 Monocryl and the skin closed with 4-0 Monocryl. Patient was awoken and taken recovery in stable condition. Surgical Findings: enlarged fibroid uterus Complications Complications: No
--- NOTE | 2025-06-13 13:50 | PCM.DC ---
Discharge Instructions DC O2, CPAP, BIPAP needs Home O2 Discharge instructions: No Dressing / Incision Discharge Activity: Return to Normal Activity, May Not Drive (while taking narcotic pain medications.) and May Shower May resume sexual activity in: 6-8 weeks Weight Bearing Status: Weight bearing as tolerated Dressing / Incision Call your doctor if your incision/area has: Continuous Slow Oozing, Sudden Increased Bleeding, Increased Pain/ Swelling, Increased Redness and Foul Smelling Discharge Call your doctor if you observe: Fever of 101 or Higher, Inability to urinate, Inability to have a bowel movement and Using more than 1 pad per hour Follow Up Care Please Follow Up With: Maura Sequeira MD Test Results: Test results from this visit will be discussed in further detail at your follow-up appointment, if applicable. Discharge Plan Admission Admit Date/Time: 06/13/25 05:27 Attending Provider: Maura Sequeira Primary Care Provider: Lynnette Whitney Discharge Orders/Prescriptions Prescriptions: New oxycodone-acetaminophen [Percocet] 5-325 mg tablet 1 tab PO Q4H PRN (Reason: pain) 7 Days Qty: 20 0RF naproxen 500 mg tablet 500 mg PO BID PRN PRN (Reason: Pain) Qty: 30 1RF No Action womens daily multivitamin 1 cap PO DAILY magnesium 250 mg tablet 250 mg PO DAILY megestrol 20 mg tablet 20 mg PO BID Qty: 45 2RF Rx Instructions: one po BID x until bleeding stops for at least 2-3 days then once daily for remainder of the pills. thyroid (pork) [[place] Thyroid] 90 mg PO DAILY Other Ambulatory Orders: CBC-Complete Blood Cnt No Diff (Routine) Timeframe: [id number] Facility: [facility] - Location: Laboratory Ordered By: Dr. Maura Sequeira Referrals / Follow Up: Lynnette Whitney PA [Primary Care Provider] -
--- NOTE | 2025-06-13 14:09 | POSTOPAN2_ITS ---
Anesthesia Postop Eval I Sum Postop Eval Completion status Anesthesia document: Postop Eval 1 completed: Yes Anesthesia Postop Eval I Summary Anesthesia Postop Eval I Summary: Anesthesia Postop Eval I: Assessment Summary Airway patent Yes 06/13/25 09:57 PARENT PARTNER.[email or web address] Spontaneous unlabored Yes 06/13/25 09:57 PARENT PARTNER.[email or web address] respirations Mental status Awake,Calm 06/13/25 09:57 PARENT PARTNER.[email or web address] nausea No 06/13/25 09:57 PARENT PARTNER.[email or web address] Vomiting No 06/13/25 09:57 PARENT PARTNER.EDWINOBBenjamin Anesthesia Postop Eval I: Fluid Summary Crystalloid volume administer 1,200 06/13/25 09:57 PARENT PARTNER.SKOBY (ml) Colloids volume administered ( ml) Blood Product volume administered (ml) Total IV fluid infused 1,200 06/13/25 09:57 PARENT PARTNER.FRANCISCO Anesthesia Postop Eval I: Summary Notes Anesthesia Complication No 06/13/25 09:57 PARENT PARTNER.FRANCISCO Anesthesia Complication Comment: Post-operative progress note Anesthesia: Postop Eval II Evaluation Mental status: Awake and Calm Pain Level: 0 nausea: No Vomiting: No Complications Anesthesia Complication: No
--- NOTE | 2025-06-13 14:09 | PCM.POSTANE2 ---
Anesthesia Postop Eval I Sum Postop Eval Completion status Anesthesia document: Postop Eval 1 completed: Yes Anesthesia Postop Eval I Summary Anesthesia Postop Eval I Summary: Anesthesia Postop Eval I: Assessment Summary Airway patent Yes 06/13/25 09:57 FELTING MACHINE OPERATOR HELPER.[email or web address] Spontaneous unlabored Yes 06/13/25 09:57 FELTING MACHINE OPERATOR HELPER.[email or web address] respirations Mental status Awake,Calm 06/13/25 09:57 FELTING MACHINE OPERATOR HELPER.[email or web address] nausea No 06/13/25 09:57 FELTING MACHINE OPERATOR HELPER.[email or web address] Vomiting No 06/13/25 09:57 FELTING MACHINE OPERATOR HELPER.[email or web address] Anesthesia Postop Eval I: Fluid Summary Crystalloid volume administer 1,200 06/13/25 09:57 FELTING MACHINE OPERATOR HELPER.SKOBY (ml) Colloids volume administered ( ml) Blood Product volume administered (ml) Total IV fluid infused 1,200 06/13/25 09:57 FELTING MACHINE OPERATOR HELPER.[email or web address] Anesthesia Postop Eval I: Summary Notes Anesthesia Complication No 06/13/25 09:57 FELTING MACHINE OPERATOR HELPER.[email or web address] Anesthesia Complication Comment: Post-operative progress note Anesthesia: Postop Eval II Evaluation Mental status: Awake and Calm Pain Level: 0 nausea: No Vomiting: No Complications Anesthesia Complication: No
--- NOTE | 2025-06-13 18:39 | NURSING ---
Romano removed per Dr Holcomb's order to remove once pt is ambulating
[2025-06-14] MEDS: Ketorolac 30 MG/ML Syringe IV ×2 (00:26→06:33)
[2025-06-14 05:00] VITALS: BP 120/83; PULSE 68; RESP 18; TEMP 36.6; O2SAT 100
[2025-06-14 05:30] LABS: Hematocrit 31.0 % (37-47); Hemoglobin 9.2 g/dL (12.0-15.0); Mean Corp Hgb Conc 29.7 g/dL (32-36); Mean Corpuscular Volume 77.7 fL (81-99); Mean Platelet Vol. 9.6 fl (6.2-12.0); POSITIVE MORPHOLOGY YES; Platelet Count 339 K/mm3 (150-450); Red Blood Count 3.99 M/mm3 (4.2-5.4); White Blood Count 8.0 K/mm3 (4.4-11.0)
[2025-06-14 06:18] LABS: Scan Indicated on CBC? Y/N YES- FLAGS NOTED
--- NOTE | 2025-06-14 07:43 | PCM.PN.OB ---
Subjective Subjective Patient doing well without complaints. Tolerating PO. Ambulating and voiding without difficulty. Pain controlled. Denies chest pain, shortness of breath, calf pain/swelling, fevers, chills, lightheadedness. Objective Data Objective Data Vital Signs: Vital Signs Temp Pulse Resp BP Pulse Ox O2 Del Method O2 Flow Rate 97.8 F 68 18 120/83 H 100 Room Air 4 06/14/25 05:00 06/14/25 05:00 06/14/25 05:00 06/14/25 05:00 06/14/25 05:00 06/14/25 05:00 06/13/25 11:39 FiO2 31 06/13/25 10:30 Oxygen Flow Rate (L/min) 4 Oxygen Delivery Method Room Air Weight: 152 lb 1.903 oz Body Mass Index (BMI) 28.7 Intake & Output: Intake and Output for Last 24 Hours 06/12/25 06/13/25 06/14/25 23:59 23:59 23:59 Intake Total 759.50 / 759.50 804.83 / 804.83 Output Total 3800 / 3800 500 / 500 Balance -3040.50 / -3040.50 304.83 / 304.83 Lab / Micro Data 06/14/25 04:30 Labs: Laboratory Results - last 24 hr 06/13/25 06:28: POC Glucose 100 06/13/25 06:45: WBC 4.1 L, RBC 5.04, Hgb 11.4 L, Hct 38.8, MCV 77.0 L, MCH 22.6 L, MCHC 29.4 L, RDW Std Deviation TNP, RDW Coeff of Asmita TNP, Plt Count 380, MPV 9.2, Blood Type A POSITIVE, Antibody Screen NEGATIVE 06/14/25 04:30: WBC 8.0, RBC 3.99 L, Hgb 9.2 L, Hct 31.0 L, MCV 77.7 L, MCH 23.1 L, MCHC 29.7 L, RDW Std Deviation TNP, RDW Coeff of Asmita TNP, Plt Count 339, MPV 9.6 Physical Exam Const alert, oriented x3 and no apparent distress Resp normal respiratory effort GI soft to palpation and non-distended Inspection: incision other (dressing dry and intact) Narrative: Minimal drainage on peripad Bladder / Kidney Exam: catheter in place Assessment & Plan (1) S/P RAMÓN (total abdominal hysterectomy): COMMENT: tahbs (2) Anemia: QUALIFIERS: Anemia type: iron deficiency Iron deficiency anemia type: unspecified iron deficiency Qualified Code(s): D50.9 - Iron deficiency anemia, unspecified PLAN: Plan patient is s/p TAHBS POD 1 1. routine ERAS protocol postop care- increase ambulation, encourage oral intake and oral control of pain. lovenox and scds for dvt prophylaxis, patient stable for discharge to home. 2. enc OTC Fe daily
[2025-06-14 08:19] VITALS: BP 144/98; PULSE 70; RESP 18; TEMP 36.9; O2SAT 100
--- NOTE | 2025-06-14 08:55 | CASEMGMT ---
Social Work SW spoke with the patient in her room regarding POA/LW. Patient reported she has a POA, and would provide a copy to the hospital. JAZZMINE Sanabria
--- NOTE | 2025-06-14 09:02 | CASEMGMT ---
Dx: RAMÓN CRUZ: 1 6-Clicks:22 Medical record reviewed and patient evaluated for identification of discharge planning needs. Based on this review, at this time criteria are not present to indicate a need for discharge planning. Will remain available to assist with discharge planning needs as identified or requested.
[2025-06-14 09:40] VITALS: O2SAT 94
--- NOTE | 2025-06-14 10:34 | PHA.DC.MC.R ---
Pharmacy [facility] Counseling Pharmacy Service has performed discharge medication reconciliation and counseling for this patient. 1. NAPROXEN 500MG PO BID PRN PAIN 2. PERCOCET 5/325MG PO Q4H PRN PAIN The patient's discharge medication list was reviewed for discrepancies and discrepancies were resolved. The patient was counseled on the following discharge medications and changes in medications for homegoing were reviewed. The Reason for Use, instructions for use, and potential side effects were reviewed for all new medications. The patient's questions regarding all of their medications were answered. The patient was able to verbally demonstrate an understanding of their discharge medications. Medications at Discharge Home Medications womens daily multivitamin 1 cap PO DAILY SUPPLEMENT 02/06/25 magnesium 250 mg tablet 250 mg PO DAILY SUPPLEMENT 05/04/25 megestrol 20 mg tablet 20 mg PO BID abnormal uterine bleeding #45 tabs 05/08/25 thyroid (pork) [Ch[place]ion Thyroid] 90 mg PO DAILY THYROID 05/11/25 naproxen 500 mg tablet 500 mg PO BID PRN PRN Pain #30 tabs 06/13/25 oxycodone-acetaminophen 5 mg-325 mg tablet (Percocet) 1 tab PO Q4H PRN pain 7 days #20 tabs 06/13/25
== END 2025-06-14 11:17 | disposition home or self-care (01) | DRG 743 ==
LOC: MS3 06-14 07:46
PROVIDERS: Anesthesiology; Admitting Provider Obstetrics & Gynecology; Referring Provider Obstetrics & Gynecology; Visit Provider Obstetrics & Gynecology
PROC: 0UT90ZZ Resection of Uterus, Open Approach (ICD-10-PCS; CPT 58150; principal; 2025-06-13 07:10)
DX: N93.9 Abnormal uterine and vaginal bleeding, unspecified (principal); D21.9 Benign neoplasm of connective and other soft tissue, unspecified; D50.9 Iron deficiency anemia, unspecified; R35.0 Frequency of micturition; R19.00 Intra-abdominal and pelvic swelling, mass and lump, unspecified site
CPT/HCPCS: 36415; 80076; 81025; 82962; 83735; 84439; 84443; 85027; 85610; 85730; 86850; 86900; 86901; 88307; 94668; A4216; J0666; J2405; J3475

== ENCOUNTER → 2025-06-26 | Outpatient (CLI) | payer BC, SELFPAY ==
[2025-06-26 12:23] LABS: Hematocrit 39.5 % (37-47); Hemoglobin 11.8 g/dL (12.0-15.0); Immature Granulocytes Count 0.020 X10^3/uL (0.0-0.0); Mean Corp Hgb Conc 29.9 g/dL (32-36); Mean Corpuscular Volume 79.8 fL (81-99); Mean Platelet Vol. 9.4 fl (6.2-12.0); NRBC Flagged by Analyzer 0 % (0-5); POSITIVE MORPHOLOGY YES; Platelet Count 475 K/mm3 (150-450); RBC Distribution Width CV 24.7 % (11.6-14.6); RBC Distribution Width SD 66.7 fl (35.1-43.9); Red Blood Count 4.95 M/mm3 (4.2-5.4); White Blood Count 6.3 K/mm3 (4.4-11.0)
[2025-06-26 12:54] LABS: Differential Indicated SCAN CRITERIA MET
[2025-06-26 13:42] LABS: Anisocytosis 2+
== END | disposition home or self-care (01) ==
PROVIDERS: Referring Provider Obstetrics & Gynecology; Visit Provider Obstetrics & Gynecology
DX: N93.9 Abnormal uterine and vaginal bleeding, unspecified (principal); D64.9 Anemia, unspecified
CPT/HCPCS: 36415; 85025

== ENCOUNTER → 2025-07-24 | Outpatient (CLI) | payer BC, SELFPAY ==
[2025-07-24 13:03] LABS: Free T3 4.5 pg/mL (2.18-3.98); Vitamin D,25 Hydroxy 34.0 ng/mL (30-100)
== END | disposition home or self-care (01) ==
PROVIDERS: Referring Provider Internal Medicine Endocrinology, Diabetes & Metabolism; Visit Provider Obstetrics & Gynecology
DX: E03.9 Hypothyroidism, unspecified (principal); E06.3 Autoimmune thyroiditis; E55.9 Vitamin D deficiency, unspecified
CPT/HCPCS: 36415; 82306; 84439; 84443; 84481; 86376